=== PATIENT | female | born 1950 | race Caucasian/White ===

== ENCOUNTER 2023-04-13 18:07 | Emergency (ER) | payer MEDICARE, SELFPAY ==
[2023-04-13] VITALS (32 sets, daily range): BP systolic 141–191; BP diastolic 56–90; PULSE 52–67; RESP 11–24; TEMP 36.6–36.8; O2SAT 92–100
--- NOTE | ~2023-04-13 | XR_ITS ---
EXAM: XR shoulder LT min 2V DATE: 04/13/2023 18:40 HISTORY: PAIN FROM SHOULDER TO ELBOW X 1 HOUR/NO TRAUMA . COMPARISON: None available. FINDINGS: Normal mineralization. No fracture or dislocation. No lytic or blastic lesion. Mild degene rative change at the left AC joint and glenohumeral joint. No erosion or periosteal change. Soft tiss ues within normal limits. IMPRESSION: No acute osseous finding in the left shoulder. Reviewed, dictated and finalized at location [facility]
--- NOTE | ~2023-04-13 | XR_ITS ---
EXAM: XR elbow LT min 3V DATE: 04/13/2023 18:40 HISTORY: PAIN FROM SHOULDER TO ELBOW X 1 HOUR/NO TRAUMA . COMPARISON: None available. FINDINGS: Normal mineralization. No fracture or dislocation. No lytic or blastic lesion. Joint space s are maintained. No erosion or periosteal change. Soft tissues within normal limits. IMPRESSION: No acute osseous finding in the left elbow. Reviewed, dictated and finalized at location K. T
--- NOTE | ~2023-04-13 | XR_ITS ---
EXAM: XR cervical spine 4-5V DATE: 04/13/2023 18:40 HISTORY: PAIN FORM SHOULDER TO ELBOW X 1 HOUR/NO TRAUMA . COMPARISON: None available. FINDINGS: Craniocervical association and atlantoaxial joint are aligned, with mild degenerative talbert ge. No prevertebral soft tissue swelling. 4 mm anterolisthesis at C4-5. Vertebral body heights are ma intained. Multilevel moderate degenerative disc disease and facet arthropathy. IMPRESSION: No acute fracture or trauma malalignment detected in the cervical spine. Grade 2 anterolisthesis at C4-5, presumably on a degenerative basis. Reviewed, dictated and finalized at location K. O REPAIR PERSON
--- NOTE | 2023-04-13 18:08 | ECG_ITS ---
Measurements Intervals [place] Rate: 57 P: 57 GA: 158 QRS: 19 QRSD: 142 T: 22 QT: 433 QTc: 423 Interpretive Statements SINUS BRADYCARDIA RIGHT BUNDLE BRANCH BLOCK BASELINE ARTIFACT- I, II, III, AVR, AVL, AVF, V1-V6 ABNORMAL ECG NO PREVIOUS ECG AVAILABLE FOR COMPARISON Electronically Signed On 04-13-2023 19:46:40 RIB CHOPPER by New Mortensen D.O.
--- NOTE | 2023-04-13 18:12 | ED.GENADULT ---
HPI - General Adult General Chief complaint: Extremity Problem,Nontraumatic <Michi Mendez DO - Last Filed: 04/13/23 18:29> Stated complaint: left arm pain <Michi Mendez DO - Last Filed: 04/13/23 18:29> Time Seen by Provider: 04/13/23 18:10 <Michi Mendez DO - Last Filed: 04/13/23 18:29> History of Present Illness HPI narrative: Heavenly is a 72F with a PMH of obesity, and hypertension that presented to the ED with left arm pain that starts in the upper left chest and radiates into the left arm. She is concerned as this is how her brother presented when he had an SC. No CP, dyspnea, lightheadedness or vomiting reported. There was also no trauma reported. Of note she took her BP meds just before coming to the ED. <Michi Mendez DO - Last Filed: 04/13/23 18:29> Related Data Home medications: Home Medications Medication Instructions Recorded Confirmed alprazolam 0.25 mg tablet 0.25 mg PO TID PRN Anxiety 04/13/23 04/13/23 hydralazine 50 mg tablet 75 mg PO BID 04/13/23 04/13/23 levothyroxine 137 mcg tablet 1 mcg PO DAILY 04/13/23 04/13/23 metoprolol tartrate 50 mg tablet See Rx Instructions .Route .COMPLEX 04/13/23 04/13/23 venlafaxine 150 mg 150 mg PO DAILY 04/13/23 04/13/23 capsule,extended release 24 hr <Michi Mendez DO - Last Filed: 04/13/23 18:29> Allergies/adverse reactions: Allergies Allergy/AdvReac Type Severity Reaction Status Date / Time Penicillins Allergy Mild RASH Verified 04/13/23 20:16 <Michi Mendez DO - Last Filed: 04/13/23 18:29> Review of Systems Review of Systems: All systems reviewed & are unremarkable except as noted in HPI and below <Michi Mendez DO - Last Filed: 04/13/23 18:29> Exam Const: General: cooperative, healthy appearing, comfortable, no acute distress, well developed, alert, awake and Physically active <Michi Mendez DO - Last Filed: 04/13/23 18:29> Orientation/consciousness: oriented to person, oriented to place and oriented to time <Michi Mendez DO - Last Filed: 04/13/23 18:29> HENMT: Head: normal to inspection, normocephalic and atraumatic <Michi Mendez DO - Last Filed: 04/13/23 18:29> Ears: hearing grossly normal bilaterally and external ears normal <Michi Mendez DO - Last Filed: 04/13/23 18:29> Face/Nose/Sinus: Normal external nose present <Michi Mendez DO - Last Filed: 04/13/23 18:29> Eyes: General: appearance normal, both eyes and all related structures <Michi Mendez DO - Last Filed: 04/13/23 18:29> Periorbital: periorbital findings normal <Michi Mendez DO - Last Filed: 04/13/23 18:29> Sclera: sclerae normal <Michi Mendez DO - Last Filed: 04/13/23 18:29> Pupils: Equal, round and reactive pupils present <Michi Mendez DO - Last Filed: 04/13/23 18:29> Neck: Neck: normal visual inspection <Michi Mendez DO - Last Filed: 04/13/23 18:29> Chest: Chest palpation & inspection: normal inspection of the chest <Micih Mendez DO - Last Filed: 04/13/23 18:29> Resp: Effort & Inspection: normal respiratory effort, able to speak in complete sentences and no respiratory distress <Michi Mendez DO - Last Filed: 04/13/23 18:29> Auscultation: clear to auscultation bilaterally <Michi Mendez DO - Last Filed: 04/13/23 18:29> Cardio: Jugular venous distension: no JVD <Michi Mendez DO - Last Filed: 04/13/23 18:29> Rate: regular rate <Michi Mendez DO - Last Filed: 04/13/23 18:29> Rhythm: regular rhythm <Michi Mendez DO - Last Filed: 04/13/23 18:29> GI: Inspection: normal to inspection <Michi Mendez DO - Last Filed: 04/13/23 18:29> GI Palp: Yes Soft to palpation <Michi Mendez DO - Last Filed: 04/13/23 18:29> Auscultation: normal bowel sounds <Michi Mendez DO - Last Filed: 04/13/23 18:29> Skin: General skin exam: normal color and no rashes or lesions noted <Michi Mendez DO - Last Filed:
[2023-04-13] MEDS: ASPIRIN 81 MG CHEWABLE TABLET 324 MG PO (18:39)
[2023-04-13 18:45] LABS: Basophils Absolute Auto 0.05 K/mm3 (0.00-0.10); Basophils Percent Auto 1.2 % (0.0-1.0); Eosinophils Absolute Auto 0.22 K/mm3 (0.02-0.50); Eosinophils Percent Auto 5.1 % (1.0-6.0); Hematocrit 38.7 % (35.0-42.0); Hemoglobin 12.2 g/dL (11.7-13.8); Immature Granulocyte Absolute 0.02 K/mm3 (0.00-0.00); Immature Granulocyte Percent A 0.5 % (0.0-0.0); Lymphocytes Absolute Auto 0.44 K/mm3 (1.10-4.50); Lymphocytes Percent Auto 10.3 % (18.0-42.0); Mean Corpuscular HGB Conc 31.5 g/dL (32.0-36.0); Mean Corpuscular Hemoglobin 30.7 pg (27.0-31.0); Mean Corpuscular Volume 97.5 fL (78.0-102.0); Mean Platelet Volume 9.7 fl (9.2-11.8); Monocytes Absolute Auto 0.48 K/mm3 (0.10-0.90); Monocytes Percent Auto 11.2 % (2.0-11.0); Neutrophils Absolute Auto 3.1 K/mm3 (1.7-7.2); Neutrophils Percent Auto 71.7 % (50.0-70.0); Platelet Count Result 212 K/mm3 (150-420); Red Blood Count 3.97 M/mm3 (4.20-5.40); Red Cell Distribution Width 13.6 % (11.6-14.4); White Blood Count 4.3 K/mm3 (4.8-10.8)
[2023-04-13 18:58] LABS: INR 0.9; Prothrombin Time 10.3 Seconds (9.50-12.10)
--- NOTE | 2023-04-13 19:01 | PC.NURSE ---
patient report received from SMITH Miller.
[2023-04-13 19:08] LABS: Alanine Aminotransferase 18 U/L (14-59); Albumin Level 3.6 g/dL (3.4-5.0); Alkaline Phosphatase 64 U/L (46-116); Anion Gap 10 mmol/L (8-16); Aspartate Amino Transferase 18 U/L (15-37); Bilirubin,Total 0.3 mg/dL (0.00-1.00); Blood Urea Nitrogen 27 mg/dL (7-18); Calcium 9.3 mg/dL (8.5-10.1); Carbon Dioxide 30 mmol/L (21-32); Chloride 102 mmol/L (98-108); Estimated Glomerular Filt Rate > 60; Glucose 85 mg/dL (70-99); NT Pro B Type Natriuretic Pept 487 pg/mL (0-125); Osmolality Calculated 298 mOsm/kg (285-295); Potassium 4.4 mmol/L (3.5-5.1); Sodium 142 mmol/L (136-145); Total Protein 7.6 g/dL (6.4-8.2); Troponin I 6.6 ng/L (0.00-60.4)
--- NOTE | 2023-04-13 19:27 | PC.NURSE ---
patient update provided by Dr. Liriano at this time. plan for 3 hour troponin and 3 hour repeat EKG. Patient remains on government service executive.
--- NOTE | 2023-04-13 20:09 | PC.NURSE ---
patient ambulatory to bathroom, states pain as 09/22, ERP made aware of patient pain, RN awaiting orders. patient sister at bedside. Patient and visitor aware of plan for repeat troponin and ekg.
[2023-04-13] MEDS: ACETAMINOPHEN 500 MG TABLET 1000 MG PO (20:17)
--- NOTE | 2023-04-13 20:20 | PC.NURSE ---
patient medicated for pain, see MAR. sister at bedside. patient update provided. patient and visitor given warm blankets and lights dimmed for comfort. patient denies further needs.call light within reach.
--- NOTE | 2023-04-13 21:26 | PC.NURSE ---
beauty advisor at bedside for repeat troponin draw.
--- NOTE | 2023-04-13 21:37 | ECG_ITS ---
Measurements Intervals [place] Rate: 57 P: 54 UT: 174 QRS: 40 QRSD: 141 T: 34 QT: 433 QTc: 425 Interpretive Statements SINUS BRADYCARDIA RIGHT BUNDLE BRANCH BLOCK BASELINE ARTIFACT- I, II, AVR, AVL, V2-V4 ABNORMAL ECG COMPARED TO ECG 04/13/2023 18:14:11 NO SIGNIFICANT CHANGES Electronically Signed On 04-14-2023 6:33:28 BLADDER CLEANER by [place] Mortensen D.O.
--- NOTE | 2023-04-13 21:54 | PC.NURSE ---
patient checked and repeat EKG completed. patient reports pain improved post medicare biller. sister remains at bedside. update provided, awaiting results of repeat troponin. denies further needs. call light within reach.
[2023-04-13 21:55] LABS: Troponin I 7.1 ng/L (0.00-60.4)
== END 2023-04-13 22:20 | disposition home or self-care (01) ==
PROVIDERS: Family Medicine; Emergency Provider Student in an Organized Health Care Education/Training Program; PCP Internal Medicine
DX: M79.602 Pain in left arm (principal); M43.12 Spondylolisthesis, cervical region; Z79.899 Other long term (current) drug therapy
CPT/HCPCS: 36415; 72050; 73030; 73080; 80053; 83880; 84484; 85025; 85610; 93005; 99284; A9270

== ENCOUNTER 2024-06-29 13:40 | Emergency (ER) | payer MEDICARE, SELFPAY ==
--- NOTE | ~2024-06-29 | XR_ITS ---
EXAMINATION: XR chest 1V portable 06/29/2024 14:22 INDICATION: Chest pain PROCEDURE: AP portable chest COMPARISON: No prior studies for comparison. FINDINGS: The lungs are clear. The cardiomediastinal silhouette is within normal limits. There are no pleural effusions. There is no pneumothorax suspected. IMPRESSION: 1: NO ACUTE CARDIOPULMONARY DISEASE. Reviewed, dictated and finalized at location B.
[2024-06-29 13:42] VITALS: BP 208/66; PULSE 69; RESP 16; TEMP 36.2; O2SAT 98
--- NOTE | 2024-06-29 13:49 | ECG_ITS ---
Test Date: 2024-06-29 14:07:49 Measurements Intervals [place] Rate: 63 P: 50 DC: 172 QRS: 35 QRSD: 134 T: 36 QT: 408 QTc: 421 Interpretive Statements SINUS RHYTHM RIGHT BUNDLE BRANCH BLOCK BASELINE ARTIFACT- I, II, III, AVR, AVL, AVF, V1-V6 ABNORMAL ECG No previous ECG available for comparison Electronically Signed On 06-29-2024 14:09:23 CDT by New Mortensen D.O.
--- NOTE | 2024-06-29 13:49 | ED.CHESTPAIN ---
HPI - Chest Pain General Chief Complaint: Chest Pain <Liliya Ramirez PA-C - Last Filed: 06/29/24 13:50> Stated Complaint: Chest pain x days <Liliya Ramirez PA-C - Last Filed: 06/29/24 13:50> Time Seen by Provider: 06/29/24 15:10 <Liliya Ramirez PA-C - Last Filed: 06/29/24 13:50> Focused HPI: 73-year-old female with history of hypertension, thyroid disease, GERD presents to emergency department for midsternal chest pain that started 3 days ago. Patient states the pain is in center of her chest that occurs after swallowing. She thought she maybe had a hiatal hernia. She is reporting associated dyspnea. Denies abdominal pain, fevers, cough or congestion, numbness or tingling to extremities. GENERAL: Well-appearing, well-nourished, and in no acute distress. HEAD: Normocephalic, atraumatic. CHEST: Clear to auscultation. ?No respiratory distress. HEART: Regular rate and rhythm.? NEURO: ?Alert and oriented x3. Patient screened in triage and initial orders placed.? ?Additional care and disposition to be based upon?diagnostic testing and treatment. <Liliya Ramirez PA-C - Last Filed: 06/29/24 13:50> History of Present Illness HPI narrative: agree w/ MSE H/o hiatal hernia s/p dilation but 3 d ago started having dysphagia again after eating creamy/cheesy broccoli soup. Comes up to throat and feels like burning. Taking protonix already <Steph Falcon MD - Last Filed: 06/29/24 16:16> Related Data Home Medications: Home Medications ?Medication ?Instructions ?Recorded ?Confirmed ?Last Taken ?Type alprazolam 0.25 mg tablet 0.25 mg PO TID PRN Anxiety 04/13/23 04/13/23 Unknown History hydralazine 50 mg tablet 75 mg PO BID 04/13/23 04/13/23 Unknown History venlafaxine 150 mg 150 mg PO DAILY 04/13/23 04/13/23 Unknown History capsule,extended release 24 hr ascorbic acid (vitamin C) 500 mg 500 mg PO DAILY 06/23/23 Unknown History chewable tablet biotin 1 mg capsule 1 mg PO DAILY 06/23/23 Unknown History calcium carbonate 500 mg PO DAILY 06/23/23 Unknown History celecoxib 200 mg capsule 200 mg PO DAILY 06/23/23 Unknown History cholecalciferol (vitamin D3) 25 25 mcg PO DAILY 06/23/23 Unknown History mcg (1,000 unit) capsule hydralazine 50 mg tablet 50 mg PO BID 06/23/23 Unknown History levothyroxine 137 mcg capsule 137 mcg PO DAILY 06/23/23 Unknown History magnesium 200 mg tablet 200 mg PO DAILY 06/23/23 Unknown History metoprolol tartrate 50 mg tablet 50 mg PO BID 06/23/23 Unknown History omega-3 fatty acids 1,000 mg 1,000 mg PO DAILY 06/23/23 Unknown History capsule ondansetron 4 mg disintegrating 4 mg PO Q6H 06/23/23 Unknown History tablet pantoprazole 40 mg tablet,delayed 40 mg PO DAILY 06/23/23 Unknown History release sennosides 8.6 mg-docusate sodium 1 tab-cap PO BID 06/23/23 Unknown History 50 mg tablet (Senna with Docusate Sodium) <Liliya Ramirez PA-C - Last Filed: 06/29/24 13:50> Allergies/Adverse Reactions: Allergies Allergy/AdvReac Type Severity Reaction Status Date / Time Penicillins Allergy Mild RASH Verified 06/29/24 13:40 <CARLY Chawla Last Filed: 06/29/24 13:50> Course Vital Signs Vital signs: Vital Signs Temperature 97.2 F L 06/29/24 13:42 Pulse Rate 69 06/29/24 13:42 Respiratory Rate 16 06/29/24 13:42 Blood Pressure 208/66 H 06/29/24 13:42 Pulse Oximetry 98 06/29/24 13:42 Temperature 97.2 F L 06/29/24 13:42 Pulse Rate 60 06/29/24 15:21 Respiratory Rate 18 06/29/24 15:21 Blood Pressure 169/60 H 06/29/24 15:21 Pulse Oximetry 99 06/29/24 15:21 Oxygen Delivery Room Air 06/29/24 14:09 <Liliya Ramirez PA-C - Last Filed: 06/29/24 13:50> Vital Signs Temperature 97.2 F L 06/29/24 13:42 Pulse Rate 69 06/29/24 13:42 Respiratory Rate 16 06/29/24 13:42 Blood Pressure 208/66 H 06/29/24 13:42 Pulse Oximetry 98 06/29/24 13:42 Temperature 97.2 F L 06/29/24 13:42 Pulse Rate 60 06/29/24 15:21 Respiratory Rate 18 06/29/24 15:21 Blood Pressure 169/60 H 06/29/24 15:21 Pulse Oximetry 99 06/29/24 15:21 Oxygen Delivery Room Air 06/29/24 14:09 <Steph Falcon MD - Last Filed: 06/29/24 16:16> MDM - Chest Pain MDM Narrative Medical decision making narrative: 1) Differential diagnosis: ACS, GERD/gastritis/esophagitis 2) Comorbidities: Hiatal hernia, hypertension 3) External notes reviewed: Prior admissions/GI notes 4) History sources independently obtained from: daughter at bedside 5) Discussion of management with: 6) Independent interpretation of: EKG showing sinus rhythm rate 63, MN 172, QRS 134, QTC 421, normal axis, no significant ST elevation or or depressions or signs of acute ischemia or arrhythmia No obvious pneumothorax, consolidation 7) Diagnostic tests or therapies considered but not ordered: 8) Social determinants of health: 9) Shared decision makinF h/o hiatal hernia s/p dilation but 3 d ago started having dysphagia again after eating creamy/cheesy broccoli soup. Comes up to throat and feels like burning. Taking protonix already. Cardiac workup thankfully negative here, patient given Maalox and Pepcid here with immediate improvement in her symptoms, I have asked her to follow up with her GI doctor and she is agreeable to this plan with return precautions. Patient and daughter at bedside agreeable to plan. <Steph Falcon MD - Last Filed: 06/29/24 16:16> Lab Data Result diagrams: 06/29/24 14:06 06/29/24 14:06 <Liliya Ramirez PA-C - Last Filed: 06/29/24 13:50> Labs: Lab Results 06/29/24 Range/Units 14:06 WBC 3.4 L (4.5-10.0) K/mm3 RBC 3.12 L (4.2-5.4) M/mm3 Hgb 11.2 L (12.0-15.0) g/dL Hct 33.7 L (37.0-47.0) % MCV 108.0 H (80-100) fl MCH 35.9 H (26-34) pg MCHC 33.2 (32-36) g/dl RDW 14.0 (11.5-14.5) % Plt Count 151 (150-375) k/mm3 MPV 9.3 (7.4-10.4) fl Immature Gran % (Auto) 0.6 H (0-0.5) % Neut % (Auto) 75.5 H (45.5-73.1) % Lymph % (Auto) 10.1 L (18.3-44.2) % [place] % (Auto) 9.9 H (2.6-8.5) % Eos % (Auto) 1.8 (0-4.4) % Baso % (Auto) 2.1 H (0.2-1.2) % Lymph # (Auto) 0.34 L (0.9-3.2) K/mm3 [place] # (Auto) 0.3 (0.1-0.6) K/mm3 Eos # (Auto) 0.1 (0-0.3) K/mm3 Baso # (Auto) 0.1 (0.0-0.1) K/mm3 Abs Immat Gran (auto) 0.02 (0.00-0.031) K/mm3 Absolute Neuts (auto) 2.5 (1.3-6.7) K/mm3 Absolute Nucleated RBC 0.000 (0.0-0.012) K/mm3 Band Neutrophils % 0 (0-6) % Nucleated RBC % 0.0 (0.0-0.2) % Platelet Estimate Adequate (Adequate) Macrocytosis 1+ (NORMAL) Schistocytes None seen PT 12.9 (11.1-14.7) Seconds INR 0.9 APTT 23.7 (22.3-36.8) Seconds Sodium 143 (137-145) mmol/L Potassium 4.5 (3.4-5.0) mmol/L Chloride 105 (98-107) mmol/L Carbon Dioxide 29 (22-30) mmol/L Anion Gap 9 (4-12) mmol/L BUN 32 H (7-17) mg/dL Creatinine 0.95 (0.7-1.0) mg/dL Estim Creat Clear Calc 47 ml/min Estimated GFR 58 L (59 - ) Glucose 97 (65-110) mg/dL Calcium 10.0 (8.4-10.2) mg/dL Total Bilirubin 0.4 (0.2-1.3) mg/dL AST 30 (14-36) U/L ALT 14 (6-35) U/L Alkaline Phosphatase 50 (38-126) U/L Troponin I < 0.012 (0.000-0.034) ng/mL NT-Pro-B Natriuret Pep 972 H (19.9-100) pg/mL Total Protein 8.0 (6.3-8.2) g/dL Albumin 4.4 (3.5-5.1) g/dL Lipase 80 (23-300) U/L <Liliya Ramirez PA-C - Last Filed: 06/29/24 13:50> Lab Results 06/29/24 Range/Units 14:06 WBC 3.4 L (4.5-10.0) K/mm3 RBC 3.12 L (4.2-5.4) M/mm3 Hgb 11.2 L (12.0-15.0) g/dL Hct 33.7 L (37.0-47.0) % MCV 108.0 H (80-100) fl MCH 35.9 H (26-34) pg MCHC 33.2 (32-36) g/dl RDW 14.0 (11.5-14.5) % Plt Count 151 (150-375) k/mm3 MPV 9.3 (7.4-10.4) fl Immature Gran % (Auto) 0.6 H (0-0.5) % Neut % (Auto) 75.5 H (45.5-73.1) % Lymph % (Auto) 10.1 L (18.3-44.2) % [place] % (Auto) 9.9 H (2.6-8.5) % Eos % (Auto) 1.8 (0-4.4) % Baso % (Auto) 2.1 H (0.2-1.2) % Lymph # (Auto) 0.34 L (0.9-3.2) K/mm3 [place] # (Auto) 0.3 (0.1-0.6) K/mm3 Eos # (Auto) 0.1 (0-0.3) K/mm3 Baso # (Auto) 0.1 (0.0-0.1) K/mm3 Abs Immat Gran (auto) 0.02 (0.00-0.031) K/mm3 Absolute Neuts (auto) 2.5 (1.3-6.7) K/mm3 Absolute Nucleated RBC 0.000 (0.0-0.012) K/mm3 Band Neutrophils % 0 (0-6) % Nucleated RBC % 0.0 (0.0-0.2) % Platelet Estimate Adequate (Adequate) Macrocytosis 1+ (NORMAL) Schistocytes None seen PT 12.9 (11.1-14.7) Seconds INR 0.9 APTT 23.7 (22.3-36.8) Seconds Sodium 143 (137-145) mmol/L Potassium 4.5 (3.4-5.0) mmol/L Chloride 105 (98-107) mmol/L Carbon Dioxide 29 (22-30) mmol/L Anion Gap 9 (4-12) mmol/L BUN 32 H (7-17) mg/dL Creatinine 0.95 (0.7-1.0) mg/dL Estim Creat Clear Calc 47 ml/min Estimated GFR 58 L (59 - ) Glucose 97 (65-110) mg/dL Calcium 10.0 (8.4-10.2) mg/dL Total Bilirubin 0.4 (0.2-1.3) mg/dL AST 30 (14-36) U/L ALT 14 (6-35) U/L Alkaline Phosphatase 50 (38-126) U/L Troponin I < 0.012 (0.000-0.034) ng/mL NT-Pro-B Natriuret Pep 972 H (19.9-100) pg/mL Total Protein 8.0 (6.3-8.2) g/dL Albumin 4.4 (3.5-5.1) g/dL Lipase 80 (23-300) U/L <Steph Falcon MD - Last Filed: 06/29/24 16:16> Discharge Plan Discharge Clinical Impression: Atypical chest pain <CARLY Chawla Last Filed: 06/29/24 13:50> Patient Disposition: Home <CARLY Chawla Last Filed: 06/29/24 13:50> Condition: Stable <CARLY Chawla Last Filed: 06/29/24 13:50> Instructions: Epigastric Pain (ED) <CARLY Chawla Last Filed: 06/29/24 13:50> Additional Instructions: Please follow up with your GI doctor in 2-3 days and try the meds as prescribed; go back to the ER if your symptoms return or worsen especially if you have any chest pain or difficulty breathing. <CARLY Chawla Last Filed: 06/29/24 13:50> Patient Language: Armenian <CARLY Chawla Last Filed: 06/29/24 13:50> Prescriptions: New famotidine 20 mg tablet 20 mg PO DAILY Qty: 30 0RF alum-mag hydroxide-simeth [Maalox Advanced] 200-200-20 mg/5 mL suspension 10 ml PO QID PRN (Reason: dyspepsia) Qty: 200 0RF Rx Instructions: administer between meals and at bedtime No Action venlafaxine 150 mg capsule,extended release 24hr 150 mg PO DAILY alprazolam 0.25 mg tablet 0.25 mg PO TID PRN (Reason: Anxiety) hydralazine 50 mg tablet 75 mg PO BID ascorbic acid (vitamin C) 500 mg tablet,chewable 500 mg PO DAILY biotin 1 mg capsule 1 mg PO DAILY calcium carbonate 500 mg calcium (1,250 mg) tablet 500 mg PO DAILY celecoxib 200 mg capsule 200 mg PO DAILY hydralazine 50 mg tablet 50 mg PO BID Rx Instructions: Take 1 1/2 tablet PO BID levothyroxine 137 mcg capsule 137 mcg PO DAILY magnesium 200 mg tablet 200 mg PO DAILY metoprolol tartrate 50 mg tablet 50 mg PO BID Rx Instructions: Take 1 1/2 tablet PO AM and 1 tablet PO PM omega-3 fatty acids 1,000 mg capsule 1,000 mg PO DAILY ondansetron 4 mg tablet,disintegrating 4 mg PO Q6H pantoprazole 40 mg tablet,delayed release (DR/EC) 40 mg PO DAILY sennosides-docusate sodium [Senna with Docusate Sodium] 8.6-50 mg tablet 1 tab-cap PO BID cholecalciferol (vitamin D3) 25 mcg (1,000 unit) capsule 25 mcg PO DAILY <Liliya Ramirez PA-C - Last Filed: 06/29/24 13:50> Follow-up/Referrals: Enrique,Bernard Ng MD [Primary Care Provider] - <Liliya Ramirez PA-C - Last Filed: 06/29/24 13:50>
[2024-06-29 14:17] VITALS: BP 161/62; PULSE 60; RESP 20; O2SAT 94
[2024-06-29 14:18] LABS: Basophils Absolute Auto 0.1 K/mm3 (0.0-0.1); Basophils Percent Auto 2.1 % (0.2-1.2); Eosinophils Absolute Auto 0.1 K/mm3 (0-0.3); Eosinophils Percent Auto 1.8 % (0-4.4); Hematocrit 33.7 % (37.0-47.0); Hemoglobin 11.2 g/dL (12.0-15.0); Immature Granulocyte Absolute 0.02 K/mm3 (0.00-0.031); Immature Granulocyte Percent A 0.6 % (0-0.5); Lymphocytes Absolute Auto 0.34 K/mm3 (0.9-3.2); Lymphocytes Percent Auto 10.1 % (18.3-44.2); Mean Corpuscular HGB Conc 33.2 g/dl (32-36); Mean Corpuscular Hemoglobin 35.9 pg (26-34); Mean Platelet Volume 9.3 fl (7.4-10.4); Monocytes Absolute Auto 0.3 K/mm3 (0.1-0.6); Monocytes Percent Auto 9.9 % (2.6-8.5); Neutrophils Absolute Auto 2.5 K/mm3 (1.3-6.7); Neutrophils Percent Auto 75.5 % (45.5-73.1); Platelet Count Result 151 k/mm3 (150-375); Red Blood Count 3.12 M/mm3 (4.2-5.4); White Blood Count 3.4 K/mm3 (4.5-10.0)
[2024-06-29 14:29] LABS: Alanine Aminotransferase 14 U/L (6-35); Albumin Level 4.4 g/dL (3.5-5.1); Alkaline Phosphatase 50 U/L (38-126); Anion Gap 9 mmol/L (4-12); Aspartate Amino Transferase 30 U/L (14-36); Bilirubin,Total 0.4 mg/dL (0.2-1.3); Blood Urea Nitrogen 32 mg/dL (7-17); Carbon Dioxide 29 mmol/L (22-30); Chloride 105 mmol/L (98-107); Estimated CRCL calculation 47 ml/min; Estimated Glomerular Filt Rate 58; Glucose 97 mg/dL (65-110); Lipase 80 U/L (23-300); Potassium 4.5 mmol/L (3.4-5.0); Sodium 143 mmol/L (137-145)
[2024-06-29 14:32] LABS: INR 0.9; Prothrombin Time 12.9 Seconds (11.1-14.7)
[2024-06-29 14:33] LABS: Partial Thromboplastin Time 23.7 Seconds (22.3-36.8)
[2024-06-29 14:41] LABS: NT Pro B Type Natriuretic Pept 972 pg/mL (19.9-100); Troponin I < 0.012 ng/mL (0.000-0.034)
[2024-06-29 14:47] LABS: Band Neutrophils Percent 0 % (0-6); Macrocytosis 1+ (NORMAL); Platelet Estimate Adequate (Adequate); Schistocytes None Seen
--- OUTSIDE RECORDS SUMMARY | 2024-06-29 14:50 | XMS_ITS | Encounter Summary ---
Author Organization [facility] Address [address] [facility] [address] [place] [address] Phone Care Team Providers Care Staff [employer] Officer Name Role Phone Bernard Nunez MD Primary Care Provider [phone] Teresa Santana RN Unavailable Unavailable [facility] APRN, ROUGH RICE TENDER Unavailable Matt Paul MD Unavailable [phone] Reason for Visit * Reason Onset Date Comments Medication Refill 05/31/2020 Encounter Details Date Type Department Care Team (Late st Contact Info) Description 05/31/2020 Refill [facility] [address] [place] [address] Angela Cary, PAC [address] [place] [address] Medication Refill Social History Tobacco Use Types Packs/Day Years Used Date Smoking Tobacco: Former Cigarettes Q uit: 06/10/1989 Smokeless Tobacco: Never PHQ-2 Answer Date Recorded Total Score - Questions 1-9 0 03/17 Comments No Sex and Gender Information Value Date Recorded Sex Assigned at Not on file Legal Sex Female 12:02 AM CDT Gender Identity Not on file Sexual Orientation Not on file COVID-19 Exposure Response Date Recorded In the last month, have you been in contact with someone who was confirmed or suspected to have Coronavirus / COVID-19? No / Unsure 05/28/2020 12:49 PM CDT documented as of this encounter Miscellaneous Notes * Telephone Encounter - Dolly Nolan - 05/31/2020 1:24 PM CDT Images from the original note were not included. documented in this encounter Plan of Treatment Upcoming Encounters Date Type Department Care Team (Late st Contact Info) Description 07/12/2024 10:15 AM CDT Office Visit [facility] - [facility] [place] [address] [place] [id number] Bernard Nunez MD [address] [place] [address] documented as of this encounter Visit Diagnoses Not on filedocumented in this encounter Additional Health Concerns Infection Onset Date Last Indicated Resolved Time Respiratory Rule-Out 05/27/2023 05/27/2023 024 3:03 PM CDT COVID - 19 05/27/2023 05/27/2023 05/27/2023 3:03 PM CDT Assessment Noted Time PHQ-9 Depression Total Score: 0 04/12/19 21 9:00 AM JOB TRAINING SPECIALIST documented as of this encounter Care Teams Staff [employer] Officer Relationship Specialty Start Date End Date Bernard Nunez MD [address] [place] [address] PCP - General Internal Medicine 06/27/15 Teresa Santana, [place] Nurse Furnace Cleaner 04/15/23 04/15/24 Trini Shoemaker APRN, ROUGH RICE TENDER [address] [place] [address] Nurse Practitioner Advanced Practice Nurse 12/10/22 Matt Paul MD [address] [place] [address] Consulting Physician Gastroenterology 01/23/22 documented as of this encounter
--- OUTSIDE RECORDS SUMMARY | 2024-06-29 14:50 | XMS_ITS | Encounter Summary ---
Author Organization [facility] Address [address] [place] [address] Phone Care Team Providers Care Office Machines Teacher Name Role Phone Bernard Nunez MD Primary Care Provider [phone] Teresa Santana RN Unavailable [facility]available [facility] APRN, TURRET PUNCH PRESS OPERATOR Unavailable Matt Paul MD Unavailable [phone] Reason for Visit * Reason Comments Medication Refill Encounter Details Date Type Department Care Team (Late st Contact Info) Description 06/01/[address] [facility] Medical Group - Internal Medicine - [place] [address] [place] [address] Bernard Nunez MD [address] [address] Medication Refill Social History Tobacco Use Types Packs/Day Years Used Date Smoking Tobacco: Former Cigarettes 1 - 1984 Passive Smoke Exposure: Past Smokeless Tobacco: Never Alcohol Use Standard Drinks/Week Comments Never 0 (1 standard drink = 0.6 oz pur e alcohol) [facility] Utilities Answer Date Recorded In the past 12 months has [employer] electric, gas, oil, or water company threatened to shut off services in your home? No 04/15/2023 Social Connection and Isolat ion Panel [NHANES] Answer Date Recorded In a typical week, how many times do you talk on the phone with family, friends, or neighbors? More than three times a week 04/15/2023 How often do you get togethe r with friends or relatives? Twice a week 04/15/2023 How often do you attend chur ch or sabianism services? 1 to 4 times per year 04/15/2023 Do you belong to any clubs o r organizations such as mosque groups, unions, fraternal or athletic groups, or school groups? No 04/15/2023 How often do you attend meet ings of the clubs or organizations you belong to? Never 04/15/2023 Are you , , di vorced, , never , or living with a partner? Patient declined 04/15/2023 AUDIT-C Answer Date Recorded Q1: How often do you have a drink containing alcohol? Never 04/15/2023 Q2: How many drinks containi ng alcohol do you have on a typical day when you are drinking? Patient does not drink Q3: How often do you have si x or more drinks on one occasion? Never 04/15/2023 Overall Financial Resource Strain (CARDIA) Answe r Date Recorded How hard is it for you to pa y for the very basics like food, housing, medical care, and heating? Not hard at all 04/15/2023 PHQ-2 Answer Date Recorded Total Score - Questions 1-9 9 04/16 [facility] - Occupational Stress Questionnaire Answer Date Recorded Do you feel stress - tense, restless, nervous, or anxious, or unable to sleep at night because your mind is troubled all the time - these days? To some extent 04/15/2023 Exercise Vital Sign Answer Date Recorde d On average, how many days pe r week do you engage in moderate to strenuous exercise (like a brisk walk)? 1 day 04/15/2023 On average, how many minutes do you engage in exercise at this level? 20 min 04/15/2023 Hunger Vital Sign Answer Date Recorded Within the past 12 months, y ou worried that your food would run out before you got the money to buy more. Never true 04/15/19 24 Within the past 12 months, t he food you bought just didn't last and you didn't have money to get more. Never true 04/15/2023 PRAPARE - Transportation Answer Date Re corded In the past 12 months, has l ack of transportation kept you from medical appointments or from getting medications? No 03/18 In the past 12 months, has l ack of transportation kept you from meetings, work, or from getting things needed for daily living? No 04/15/2023 Housing Stability Vital Sign Answer Angel Luis e Recorded In the last 12 months, was t here a time when you were not able to pay the mortgage or rent on time? No 04/15/2023 In the last 12 months, how many places have you lived? 1 04/15/2023 In the last 12 months, was t here a time when you did not have a steady place to sleep or slept in a half-way (including now)? No 04/15/2023 Sexually Active Control Partners Comments Not Currently Male Comments No Sex and Gender Information Value Date Recorded Sex Assigned at Not on file Legal Sex Female 12:02 AM CDT Gender Identity Not on file Sexual Orientation Not on file documented as of this encounter Plan of Treatment Upcoming Encounters Date Type Department Care Team (Late st Contact Info) Description 07/12/2024 10:15 AM CDT Office Visit [facility] Medical Group - Internal Medicine [place] [address] [place] [address] Bernard Nunez MD [address] [place] [address] documented as of this encounter Goals Goal Patient Goal Type Associated Problems Recent Progress Patient-Stated? Author Behavioral Health Behavioral Health On track( 024 9:58 AM CDT) Yes Angel Trujillo, FINANCIAL MANAGEMENT ANALYST Note: I want to get through this grief. Goal/Objective: Increase coping skills. Anticipated Time Frame for Goal Completion: 6 months Goal Reviewed with: patient Readiness to change: Ready to change Department associated with goal: [facility] Steps to achieve goal: 1. will attend at least 6 counseling sessions either individual and/or group 1x/mo, engaging in each session by verbalizing and processing thoughts and feelings related to grief and loss. 2. will report reduced feelings of guilt and resentment. 3. will identify and implement at least two outlets for grief and or coping skills to aid in managing problematic responses to grief. documented as of this encounter Visit Diagnoses Not on filedocumented in this encounter Additional Health Concerns Assessment Noted Time PHQ-9 Depression Total Score: 9 04/29/19 24 10:00 AM TRAPPER ANIMAL documented as of this encounter Care Teams Office Machines Teacher Relationship Specialty Start Date End Date Bernard Nunez MD [address] [place] [address] PCP - General Internal Medicine 06/27/15 Teresa Santana RN [place] Nurse Sweater Designer 04/15/23 04/15/24 Trini Shoemaker APRN, TURRET PUNCH PRESS OPERATOR [address] [place] [address] Nurse Practitioner Advanced Practice Nurse 12/10/22 Matt Paul MD [address] [place] [address] Consulting Physician Gastroenterology 01/23/22 documented as of this encounter
--- OUTSIDE RECORDS SUMMARY | 2024-06-29 14:50 | XMS_ITS | Encounter Summary ---
Author Organization [facility] Address [address] [place] [address] Phone Care Team Providers Care Paint Grinder Stone Mill Name Role Phone Bernard Nunez MD Primary Care Provider [phone] Teresa Santana RN Unavailable Unavailable [facility] APRN, PARKING METER MECHANIC Unavailable Matt Paul MD Unavailable [phone] Reason for Visit * Reason Comments Medication Refill Encounter Details Date Type Department Care Team (Late st Contact Info) Description 07/16/2021 Refill [facility] - [place] [address] [place] [address] Bernard Nunez MD [address] [facility] [place] [address] Medication Refill Social History Tobacco Use Types Packs/Day Years Used Date Smoking Tobacco: Former Cigarettes 1 10 1 975 - 1984 Smokeless Tobacco: Never Alcohol Use Standard Drinks/Week Comments Never 0 (1 standard drink = 0.6 oz pur e alcohol) PHQ-2 Answer Date Recorded Total Score - Questions 1-9 0 04/16 Sexually Active Control Partners Comments Not Currently Comments No Sex and Gender Information Value Date Recorded Sex Assigned at Not on file Legal Sex Female 12:02 AM CDT Gender Identity Not on file Sexual Orientation Not on file COVID-19 Exposure Response Date Recorded In the last 10 days, have yo u been in contact with someone who was confirmed or suspected to have Coronavirus/COVID-19? No / Unsure 06/25/2021 10:33 AM CDT documented as of this encounter Miscellaneous Notes * Telephone Encounter - Alisha Castro RN - 07/16/2021 9:17 AM CDT Medication failed the protocol, provider to review and approve the medication order if appropriate. Requested Prescriptions Pending Prescriptions Disp Refills hydrALAZINE 50 MG Tablet [Pharmacy Med Name: hydrALAZINE HCl 50 MG Oral Tablet] 270 Tablet 0 Sig: TAKE 1 & 1/2 (ONE & ONE-HALF) TABLETS BY MOUTH TWICE DAILY Vasodilators Protocol Passed - 07/16/2021 8:59 AM Passed - Visit with relevant provider in past year or upcoming 90 days Recent Visits Date Type Provider Dept 04/26/21 Office Visit [facility] [place] 01/18/21 Office Visit Bernard Nunez MD [facility] [place] 10/11/20 Office Visit Bernard Nunez MD [facility] 09/28/20 Office Visit Angela Cary PAC [facility] [place] Showing recent visits within past 365 days and meeting all other requirements Future Appointments Date Type Provider Dept 07/29/21 Appointment Bernard Nunez MD [facility] Showing future appointments within next 90 days and meeting all other requirements metoprolol tartrate (LOPRESSOR) 50 MG Tablet [Pharmacy Med Name: Metoprolol Tartrate 50 MG Oral Tablet] 225 Tablet 0 Sig: TAKE 1 & 1/2 (ONE & ONE-HALF) TABLETS BY MOUTH IN THE MORNING AND 1 IN THE EVENING Beta-Blockers Protocol Passed - 07/16/2021 8:59 AM Passed - BP on record in the past year Clinician-entered: BP Readings from Last 3 Encounters: 06/25/21 150/63 05/23/21 172/68 04/26/21 138/72 Patient-entered: No data recorded Passed - Visit with relevant provider in past 12 months or upcoming 90 days Recent Visits Date Type Provider Dept 04/26/21 Office Visit Bernard Nunez MD [facility] [place] 01/18/21 Office Visit Bernard Nunez MD [facility] [place] 10/11/20 Office Visit Bernard Nunez MD [facility] [place] 09/28/20 Office Visit Angela Cary, KAY [facility] [place] Showing recent visits within past 365 days and meeting all other requirements Future Appointments Date Type Provider Dept 07/29/21 Appointment Bernard Nunez MD [facility] [place] Show[place] future appointments within next 90 days and meeting all other requirements venlafaxine (EFFEXOR-XR) 75 MG CAPSULE SR 24 HR [Pharmacy Med Name: Venlafaxine HCl ER 75 MG Oral Capsule Extended Release 24 Hour] 90 Capsule 0 Sig: Take 1 capsule by mouth once daily SNRI (6 Month Refill Only) Protocol Failed - 07/16/2021 8:59 AM Failed - Patient has established therapy with Serotonin-Norepinephrine Reuptake Inhibitors for at least 6 months Passed - Visit with relevant provider in past 6 months or upcoming 90 days Recent Visits Date Type Provider Dept 04/26/21 Office Visit Bernard Nunez MD [facility] [place] 01/18/21 Office [facility] [place] Showing recent visits within past 182 days and meeting all other requirements Future Appointments Date Type Provider Dept 07/29/21 Appointment [facility] [place] Show[place] future appointments within next 90 days and meeting all other requirements Passed - Has an encounter in the past 6 months with a depression or anxiety visit diagnosis Euthyrox 137 MCG Tablet [Pharmacy Med Name: Euthyrox 137 MCG Oral Tablet] 90 Tablet 0 Sig: Take 1 tablet by mouth once daily Thyroid Hormones Protocol Failed - 07/16/2021 8:59 AM Failed - Normal TSH in past 12 months TSH Date Value Ref Range Status 01/17/2021 8.080 (H) 0.270 - 4.200 mIU/L Final Passed - Visit with relevant provider in past 12 months or upcoming 90 days Recent Visits Date Type Provider Dept 04/26/21 Office Visit Bernard Nunez MD [facility] 01/18/21 Office Visit Bernard Nunez MD [facility] 10/11/20 Office Visit Bernard Nunez MD [facility] 09/28/20 Office Visit Angela Cary, KAY [facility] [place] Showing recent visits within past 365 days and meeting all other requirements Future Appointments Date Type Provider Dept 07/29/21 Appointment Bernard Nunez MD [facility] [place] Showing future appointments within next 90 days and meeting all other requirements documented in this encounter Plan of Treatment Upcoming Encounters Date Type Department Care Team (Late st Contact Info) Description 07/12/2024 10:15 AM CDT [facility] Visit [facility] - [facility] Medicine [place] [address] [place] [address] Bernard Nunez MD [address] [facility] [place] [address] documented as of this encounter Visit Diagnoses Not on filedocumented in this encounter Additional Health Concerns Infection Onset Date Last Indicated Resolved Time Respiratory Rule-Out 05/27/2023 05/27/2023 024 3:03 PM CDT COVID - 19 05/27/2023 05/27/2023 05/27/2023 3:03 PM CDT Assessment Noted Time PHQ-9 Depression Total Score: 0 04/12/19 21 9:00 AM FRONT WORKER documented as of this encounter Care Teams Paint Grinder Stone Mill Relationship Specialty Start Date End Date Bernard Nunez MD [address] [place] [address] PCP - General Internal Medicine 06/27/15 Teresa Santana RN [place] Nurse Beauty Therapist 04/15/23 04/15/24 Trini Shoemaker APRN, PARKING METER MECHANIC [address] [place] [address] Nurse Practitioner Advanced Practice Nurse 12/10/22 Matt Paul MD [address] [place] [address] Consulting Physician Gastroenterology 01/23/22 documented as of this encounter
--- OUTSIDE RECORDS SUMMARY | 2024-06-29 14:50 | XMS_ITS | Encounter Summary ---
Author Organization [facility] Address [address] [place] [address] Phone Care Team Providers Care Telephone Switchboard Operator Name Role Phone Bernard Nunez MD Primary Care Provider Trini Shoemaker APRN, CAKE DECORATOR Unavailable aMtt Paul MD Unavailable [phone] Encounter Details Date Type Department Care Team (Late st Contact Info) Description 06/29/2024 Telephone [facility] [address] [place] [address] Bernard Nunez MD [address] [place] [address] Social History Tobacco Use Types Packs/Day Years Used Date Smoking Tobacco: Former Cigarettes 1 12 14 965 - 1984 Passive Smoke Exposure: Past Smokeless Tobacco: Never Alcohol Use Standard Drinks/Week Comments Never 0 (1 standard drink = 0.6 oz pur e alcohol) [facility] Utilities Answer Date Recorded In the past 12 months has e electric, gas, oil, or water company threatened to shut off services in your home? No 01/11/2024 Social Connection and Isolat ion Panel [NHANES] Answer Date Recorded In a typical week, how many times do you talk on the phone with family, friends, or neighbors? More than three times a week 01/11/2024 How often do you get togethe r with friends or relatives? Once a week 01/11/2024 How often do you attend chur or mandaen services? More than 4 times per year 01/11/2024 Do you belong to any clubs o r organizations such as adventism groups, unions, fraternal or athletic groups, or school groups? Yes 01/11/2024 How often do you attend meet ings of the clubs or organizations you belong to? More than 4 times per year 01/11/2024 Are you , , di vorced, , never , or living with a partner? 01/11/2024 AUDIT-C Answer Date Recorded Q1: How often do you have a drink containing alcohol? Never 01/11/2024 Q2: How many drinks containi ng alcohol do you have on a typical day when you are drinking? Patient does not drink Q3: How often do you have si x or more drinks on one occasion? Never 01/11/2024 Overall Financial Resource Strain (CARDIA) Answe r Date Recorded How hard is it for you to pa y for the very basics like food, housing, medical care, and heating? Not very hard 01/11/2024 PHQ-2 Answer Date Recorded Total Score - Questions 1-9 0 03/17 [facility] - Occupational Stress Questionnaire Answer Date Recorded Do you feel stress - tense, restless, nervous, or anxious, or unable to sleep at night because your mind is troubled all the time - these days? Very much 01/11/2024 Exercise Vital Sign Answer Date Recorde d On average, how many days pe r week do you engage in moderate to strenuous exercise (like a brisk walk)? 3 days 01/11/2024 On average, how many minutes do you engage in exercise at this level? 40 min 01/11/2024 Hunger Vital Sign Answer Date Recorded Within the past 12 months, y ou worried that your food would run out before you got the money to buy more. Never true 01/11/20 24 Within the past 12 months, t he food you bought just didn't last and you didn't have money to get more. Never true 01/11/2024 PRAPARE - Transportation Answer Date Re corded In the past 12 months, has l ack of transportation kept you from medical appointments or from getting medications? No 12/15 In the past 12 months, has l ack of transportation kept you from meetings, work, or from getting things needed for daily living? No 01/11/2024 Housing Stability Vital Sign Answer Angel Luis e Recorded In the last 12 months, was t here a time when you were not able to pay the mortgage or rent on time? No 06/30/2023 In the last 12 months, how many places have you lived? 1 06/30/2023 In the last 12 months, was t here a time when you did not have a steady place to sleep or slept in a fpc (including now)? No 06/30/2023 Housing Stability Vital Sign Answer Angel Luis e Recorded In the last 12 months, was t here a time when you were not able to pay the mortgage or rent on time? No 01/11/2024 In the past 12 months, how m any times have you moved where you were living? 0 01/11/2024 At any time in the [facility], were you homeless or living in a fpc (including now)? No 01/11/2024 Sexually Active Control Partners Comments Not Currently Male Comments No Sex and Gender Information Value Date Recorded Sex Assigned at Not on file Legal Sex Female 12:02 AM CDT Gender Identity Not on file Sexual Orientation Not on file documented as of this encounter Miscellaneous Notes * Telephone Encounter - Brenda Masters - 06/29/2024 12:11 PM CDT Heavenly called today as she is having pain in the middle of her chest and it radiates out to her nipples on both sides. She was advised to go to the ER. Phone - [phone] documented in this encounter Plan of Treatment Upcoming Encounters Date Type Department Care Team (Late st Contact Info) Description 07/12/2024 10:15 AM CDT Office Visit [facility] - Internal Medicine - [place] [address] [place] [address] Bernard Nunez MD [address] [place] [address] documented as of this encounter Goals Goal Patient Goal Type Associated Problems Recent Progress Patient-Stated? Author Behavioral Health Behavioral Health On track( 024 9:58 AM CDT) Yes Angel Trujillo, SLEEP LAB TECHNOLOGIST Note: I want to get through this grief. Goal/Objective: Increase coping skills. Anticipated Time Frame for Goal Completion: 6 months Goal Reviewed with: patient Readiness to change: Ready to change Department associated with goal: [facility] Steps to achieve goal: [...] Time PHQ-9 Depression Total Score: 0 04/12/19 25 10:21 AM INSHORE UNDERSEA WARFARE OFFICER documented as of this encounter Care Teams Telephone Switchboard Operator Relationship Specialty Start Date End Date Bernard Nunez MD [address] [place] [address] PCP - General Internal Medicine 06/27/15 Trini Shoemaker APRN, CAKE DECORATOR [address] [place] [address] Nurse Practitioner Advanced Practice Nurse 12/10/22 Matt Paul MD [address] [place] [address] Consulting Physician Gastroenterology 01/23/22 documented as of this encounter
--- OUTSIDE RECORDS SUMMARY | 2024-06-29 14:50 | XMS_ITS | Encounter Summary ---
Author Organization [facility] Address [address] [place] [address] Care Team Providers Care Process Control Specialist Name Role Phone Emery Nunez MD Primary Care Provider [phone] Encounter Details Date Type Department Care Team (Late st Contact Info) Description 06/11/2023 Lab Requisition [facility] - DermPath Lab [address] [place] [address] Paty Rowe DO [address] [facility] [address] [place] [address] Social History Tobacco Use Types Packs/Day Years Used Date Smoking Tobacco: Never Assessed Comments Unknown Sex and Gender Information Value Date Recorded Sex Assigned at Not on file Legal Sex Female 5:48 PM LIFE SPECIALIST Gender Identity Not on file Sexual Orientation Not on file documented as of this encounter Plan of Treatment Not on file documented as of this encounter Procedures Procedure Name Priority Date/Time Associated Diagnosis Comments DERMATOPATHOLOGY Routine 06/11/2023 2:05 PM CDT documented in this encounter Results * DERMATOPATHOLOGY (06/11/2023 2:05 PM CDT) Case Report Dermatopathology Report Case: [id number] Authorizing Provider: Paty Rowe DO Collected: 06/11/2023 02:05 PM Ordering Location: [facility] Physician [facility] - Received: 06/12/2023 01:46 PM DermPath Lab Pathologist: Amy Dangelo MD Specimen: Skin, right forehead 12:21 PM CDT DERMATOPATHOLOGY LABORATORY Final Diagnosis Specimen A. SKIN, right forehead: SQUAMOUS CELL CARCINOMA, WELL DIFFERENTIATED (C44.329) 12:21 PM CDT DERMATOPATHOLOGY LABORATORY Clinical History R/O NMSC. 12:21 PM CDT DERMATOPATHOLOGY LABORATORY Gross Description Specimen A: Received is one formalin filled container labeled with the patient's name and designated right forehead. The specimen consists of a shave biopsy measuring 5x5x1 mm. Jar 0. 12:21 PM CDT DERMATOPATHOLOGY LABORATORY Microscopic Description Specimen A. SKIN, right forehead: Arising in the epidermis and extending into the dermis there are irregularly shaped aggregates of keratinocytes showing evidence of premature cornification. 12:21 PM CDT DERMATOPATHOLOGY LABORATORY Disclaimer An external and internal positive and negative controls are appropriate for the histochemical, immunohistochemical and immunofluorescence stain(s) in this case (if any), except where stated explicitly. The performance characteristics of the stain(s) cited in this report were developed and its performance characteristic determined by the Dermatopathology Laboratory at [facility], directed by Dr. Ronnie Waterman. These tests need not be, and therefore are not, approved by the [place] Food and Drug Administration. The tests are used for clinical purposes. Billing Codes Specimen Charges Stain Charges 12272 1 12:21 PM CDT DERMATOPATHOLOGY LABORATORY Embedded Images 12:21 PM CDT DERMATOPATHOLOGY LABORATORY Pathology/Cytolo gy TISSUE SPECIMEN FROM SKIN / Unknown 06/11/2023 2:05 PM CDT 06/12/2023 1:46 PM CDT us Paty Rowe DO LAB - PATHOLOGY/CYTOLOGY ORDERABLES Final Result DERMATOPATHOLOGY LABORATORY [facility] - Department of Dermatology [address], [address] [phone] documented in this encounter Visit Diagnoses Not on filedocumented in this encounter Care Teams Process Control Specialist Relationship Specialty Start Date End Date Emery Nunez MD [address] [id number] PCP - General 02/01/19 documented as of this encounter
--- OUTSIDE RECORDS SUMMARY | 2024-06-29 14:50 | XMS_ITS | Encounter Summary ---
Author Organization [facility] Address [address] [place] [address] Phone Care Team Providers Care Sugar Refinery Supervisor Name Role Phone Bernard Nunez MD Primary Care Provider [phone] Zaire Alba MD Unavailable [phone] Fran Angel MD Unavailable [phone] Encounter Details Date Type Department Care Team (Late st Contact Info) Description 06/06/2024 Telephone [facility] Cardiology [address] [facility] [address] [facility] 8th [place] [address] [place] [address] Jose Escoto MD [address] [facility] [address] [place], [place] [id number] Social History Tobacco Use Types Packs/Day Years Used Date Smoking Tobacco: Former Cigarettes 1 20 1 972 - 1991 Smokeless Tobacco: Never AUDIT-C Answer Date Recorded Q1: How often do you have a drink containing alcohol? Never 07/09/2022 Q2: How many drinks containi ng alcohol do you have on a typical day when you are drinking? Patient does not drink Frequency of Binge Drinking Not on file 06/15 PHQ-2 Answer Date Recorded PHQ-2 Total Score (If total score is 3 or more points, staff should administer the PHQ-9) 0 07/09/2022 Personal Safety Answer Date Recorded Have you ever been in or are you currently in a harmful physical or emotional relationship or is someone making you feel afraid or unsafe? 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 Tried to call pt at [phone] but it was a wrong number. Took number out of system. * Telephone Encounter - Rosa Wei - 06/06/2024 12:19 PM CDT ----- Message from Nurse Chio Story sent at 06/06/2024 11:34 AM CDT ----- Please cancel patients appointment for today and call her to reschedule. She was not aware she had an appointment today. Thank you! documented in this encounter Plan of Treatment Not on file documented as of this encounter Visit Diagnoses Not on filedocumented in this encounter Care Teams Sugar Refinery Supervisor Relationship Specialty Start Date End Date Bernard Nunez MD [address] [place] [address] PCP - General 01/06/17 Zaire Alba MD [address] [place] [address] [place] [address] Surgeon Orthopedic Surgery 03/20/22 Fran Angel MD [address] [place] [address] Referring Physician Ophthalmology 04/07/22 documented as of this encounter
--- OUTSIDE RECORDS SUMMARY | 2024-06-29 14:50 | XMS_ITS ---
Author Organization [facility] Address [address] [place] [address] Care Team Providers Care Managing Consultant Name Role Phone Bernard Nunez MD Primary Care Provider [phone] Zaire Alba MD Unavailable [phone] Fran Angel MD Unavailable Active Problems Problem Noted Date Diagnosed Date Malignant neoplasm metastatic to bone 12/29/2023 Malignant neoplasm of overla pping sites of left breast in female, estrogen receptor positive 10/15/2023 Aftercare following left knee joint replacement surgery 07/17/2022 Primary osteoarthritis of right knee 03/04/2022 Overview (03/04/2022): Added automatically from request for surgery [id number] Basal cell carcinoma (BCC) of left lower eyelid 01/06/2022 Lesion of left lower eyelid 11/07/2021 Overview (11/07/2021): Added automatically from request for surgery [id number] Current Treatment and Therapy Plans [id number] - [facility] - Breast - TBCRBC-060 - Aromatase Inhibitor OR Tamoxifen / Abemaciclib* Plan Start Date:11/30/2023 Plan Provider:Lucille Singh MD Linked Problems Malignant neoplasm of overla pping sites of left breast in female, estrogen receptor positive (HCC) Treatment Medications Current Day (Day 1 , Cycle 8 - Planned for 06/21/2024) Next Day (Day 1, Cycle 9 - Planned for 07/19/2024) INV-WU_BJ Abemaciclib (/TBCRC-060)letroz ole (FEMARA) INV-WU_BJ Abemaciclib (/TBCRC-060) tablet 100 mgletrozole (FEMARA) 2.5 mg tablet INV-WU_BJ Abemaciclib (/TBCRC-060) tablet 100 mgletrozole (FEMARA) 2.5 mg tablet Zoledronic Acid Every 12 Weeks* Plan Start Date:01/26/2024 Plan Provider:Lucille Singh MD Linked Problems Malignant neoplasm metastati c to bone (HCC)Malignant neoplasm of overlapping sites of left breast in female, estrogen receptor positive (HCC) Treatment Medications Current Day (Day 1 , Cycle 3 - Planned for 07/19/2024) Next Day (Day 1, Cycle 4 - Planned for 10/11/2024) No medications scheduled. No medications schedul ed. No medications scheduled. Past Treatment and Therapy Plans No past plan information found. Lifetime Dose Tracking * Chemical Lifetime Dose Automatic Entry Manual Entr y DLP 1,397 mGycm 1,397 mGycm 0 mGycm Resolved Problems Problem Noted Date Diagnosed Date Resolved Date Primary osteoarthritis of left knee 06/23/2022 07/17/2022 Overview (06/23/2022): Added automatically from request for surgery [id number]
--- OUTSIDE RECORDS SUMMARY | 2024-06-29 14:50 | XMS_ITS | Encounter Summary ---
Author Organization [facility] Address [address] [facility] [place] [address] Care Team Providers Care Branch Retail Executive Name Role Phone Emery Nunez MD Primary Care Provider [phone] Encounter Details Date Type Department Care Team (Late st Contact Info) Description 11/27/2022 Lab Requisition [facility] - DermPath Lab [address] [facility] [place] [id number] Paty Rowe DO [address] [facility] [address] [place] [address] Social History Tobacco Use Types Packs/Day Years Used Date Smoking Tobacco: Never Assessed Comments Unknown Sex and Gender Information Value Date Recorded Sex Assigned at Not on file Legal Sex Female 5:48 PM CHIPPER Gender Identity Not on file Sexual Orientation Not on file documented as of this encounter Plan of Treatment Not on file documented as of this encounter Procedures Procedure Name Priority Date/Time Associated Diagnosis Comments DERMATOPATHOLOGY Routine 11/27/2022 3:21 PM CDT documented in this encounter Results * DERMATOPATHOLOGY (11/27/2022 3:21 PM CDT) Case Report Dermatopathology Report Case: [id number] Authorizing Provider: Paty Rowe DO Collected: 11/27/2022 03:21 PM Ordering Location: [facility] DermPath Lab Received: 11/28/2022 12:28 PM Pathologist: Kya Barksdale MD Specimen: Skin, right chest 09/18/202 3 1:08 PM CDT DERMATOPATHOLOGY LABORATORY Final Diagnosis Specimen A. SKIN, right chest: BASAL CELL CARCINOMA, NODULAR TYPE (C44.519) CALCINOSIS CUTIS (L94.2) 3 1:08 PM CDT DERMATOPATHOLOGY LABORATORY Clinical History R/O BCC 3 1:08 PM CDT DERMATOPATHOLOGY LABORATORY Gross Description Specimen A: Received is one formalin filled container labeled with the patient's name and designated right chest. The specimen consists of a shave biopsy measuring 12x7x1 mm. Jar 0. 3 1:08 PM CDT DERMATOPATHOLOGY LABORATORY Microscopic Description Specimen A. SKIN, right chest: Within the dermis there are aggregates of basaloid cells with a high nuclear to cytoplasmic ratio and peripheral palisading. Within the dermis, there are aggregates of homogenous amorphous basophilic material consistent with calcium. 3 1:08 PM CDT DERMATOPATHOLOGY LABORATORY Disclaimer An external and internal positive and negative controls are appropriate for the histochemical, immunohistochemical and immunofluorescence stain(s) in this case (if any), except where stated explicitly. The performance characteristics of the stain(s) cited in this report were developed and its performance characteristic determined by the Dermatopathology Laboratory at [facility], directed by Dr. Ronnie Waterman. These tests need not be, and therefore are not, approved by the [place] Food and Drug Administration. The tests are used for clinical purposes. Billing Codes Specimen Charges Stain Charges 19199 1 3 1:08 PM CDT DERMATOPATHOLOGY LABORATORY Embedded Images 3 1:08 PM CDT DERMATOPATHOLOGY LABORATORY Pathology/Cytolo gy TISSUE SPECIMEN FROM SKIN / Unknown 11/27/2022 3:21 PM CDT 11/28/2022 12:28 PM CDT us Paty Rowe DO LAB - PATHOLOGY/CYTOLOGY ORDERABLES Final Result DERMATOPATHOLOGY LABORATORY [facility] - Department of Dermatology [address], [address] [phone] documented in this encounter Visit Diagnoses Not on filedocumented in this encounter Care Teams Branch Retail Executive Relationship Specialty Start Date End Date Emery Nunez MD [address] [place] [id number] PCP - General 02/01/19 documented as of this encounter
--- OUTSIDE RECORDS SUMMARY | 2024-06-29 14:50 | XMS_ITS | Clinical Summary ---
Author Organization [facility] Address [address] [place] [address] Care Team Providers Care Statistical Methods Professor Name Role Phone Bernard Nunez MD Primary Care Provider [phone] Zaire Alba MD Unavailable [phone] Fran Angel MD Unavailable [phone] Allergies Active Allergy Reactions Criticality Noted Date Comments Nickel Itching,Redness Low 10/08/2023 Penicillins Hives Medium Medications pantoprazole DR (PROTONIX) 40 mg EC tablet Take 1 tablet (40 mg total) by mouth nightly 2 Active metoprolol tartrate (LOPRESSOR) 50 mg immediate release tablet Take 1 tablet (50 mg total) by mouth 2 (two) times a day Patient takes 1.5 tabs in the morning and 1 tablet at bedtime 2 Active glucosamine/cho ndr marinelli A sod (OSTEO BI-FLEX ORAL) Take 1 tablet by mouth every morning Active venlafaxine XR (EFFEXOR-XR) 150 mg 24 hr capsule Take 1 capsule (150 mg total) by mouth every morning 2 Active biotin 1 mg capsule Take 1 capsule by mouth every morning Active cholecalciferol (VITAMIN D-3) 25 mcg (1,000 unit) tablet Take 1 tablet (1,000 Units total) by mouth daily Active ascorbic acid (VITAMIN C) 500 mg tablet,chewable Take 1 tablet/chew tab (500 mg total) by mouth daily 30 tablet/chew tab 3 Active levothyroxine (SYNTHROID) 137 mcg tablet Take 1 tablet (137 mcg total) by mouth daily 2 Active senna-docusate (PERICOLACE) 8.6-50 mgIndications:c onstipation Take 2 tablets by mouth 2 (two) times a day 60 tablet 2 3 Active Additional Information Patient taking differently:2 tablet oralAs needed, Indications: constipation, Reported on 06/21/2024 potassium &magnesium aspartate (MAGNESIUM, POTASSIUM ASPARTATE ORAL) Take by mouth Active atorvastatin (LIPITOR) 10 mg tablet Take 1 tablet (10 mg total) by mouth nightly 4 Active ALPRAZolam (XANAX) 0.25 mg tablet Take 1 tablet (0.25 mg total) by mouth 3 (three) times a day as needed 1 Active furosemide (LASIX) 40 mg tablet Take 1 tablet (40 mg total) by mouth as needed (for swelling and/or Shortness of breath) 4 Active losartan (COZAAR) 50 mg tablet Take 1 tablet (50 mg total) by mouth daily 30 tablet 11 4 Active loperamide (IMODIUM) 2 mg capsuleIndicati ons:Malignant neoplasm of overlapping sites of left breast in female, estrogen receptor positive (HCC) Take 2 caps (4 mg) by mouth with first onset of diarrhea, 1 cap (2 mg) after each loose stool thereafter. Max 8 caps (16 mg) per 24 hours 60 capsule 3 4 Active Additional Information Patient taking differently: As needed, Take 2 caps (4 mg) by mouth with first onset of diarrhea, 1 cap (2 mg) after each loose stool thereafter. Max 8 caps (16 mg) per 24 hours, Reported on 06/21/2024 zolpidem (AMBIEN) 5 mg tabletIndicatio ns:Sleep-Onset Insomnia Take 1 tablet (5 mg total) by mouth nightly as needed for sleep Active letrozole (FEMARA) 2.5 mg tabletIndicatio ns:Malignant neoplasm of overlapping sites of left breast in female, estrogen receptor positive (HCC) Take 1 tablet (2.5 mg total) by mouth daily 90 tablet 3 4 Active ondansetron (ZOFRAN) 8 mg tablet Take 1 tablet (8 mg total) by mouth every 8 (eight) hours as needed for nausea or vomiting 90 tablet 2 5 Active letrozole (FEMARA) 2.5 mg tabletIndicatio ns:Malignant neoplasm of overlapping sites of left breast in female, estrogen receptor positive (HCC) Take 1 tablet (2.5 mg total) by mouth daily 5 Active clindamycin (CLEOCIN) 150 mg capsule TAKE FOUR CAPSULES BY MOUTH ONE HOUR BEFORE APPOINTMENT 5 Active levothyroxine (SYNTHROID) 125 mcg tablet Take 1 tablet (125 mcg total) by mouth daily 5 Active [facility] Abemaciclib (/TB CRC-060) 50 mg tablet Take 2 tablets (100 mg total) by mouth 2 (two) times a day Take at about the same times each day with or without food. Missed or vomited doses may not be made up. Avoid grapefruit juice/products, pomelos, [place] oranges, Mirta's Wort. Active calcium carbonate-vitam in D3 1,250mg (500mg elemental) - 5 mcg (200 units) per tablet Take 1 tablet by mouth 2 (two) times a day with meals 025 Discontin ued(Dupli michel order) clindamycin (CLEOCIN) 300 mg capsule Take 2 tablets by mouth 1 hour prior to dental procedure and take 1 tablet by mouth 6 hours after procedure. 3 capsule 1 3 025 Discontin ued(Alter carter therapy) [facility] Abemaciclib (/TB CRC-060) 50 mg tablet Take 3 tablets (150 mg total) by mouth 2 (two) times a day Take at about the same times each day with or without food. Missed or vomited doses may not be made up. Avoid grapefruit juice/products, pomelos, [place] oranges, Vashon's Wort. 025 Discontin ued(Alter carter therapy) letrozole (FEMARA) 2.5 mg tabletIndicatio ns:Malignant neoplasm of overlapping sites of left breast in female, estrogen receptor positive (HCC) Take 1 tablet (2.5 mg total) by mouth daily 5 025 Discontin ued(Dupli michel order) letrozole (FEMARA) 2.5 mg tabletIndicatio ns:Malignant neoplasm of overlapping sites of left breast in female, estrogen receptor positive (HCC) Take 1 tablet (2.5 mg total) by mouth daily 5 025 Discontin ued(Dupli michel order) Hospital, Clinic, or Other Facility Administered Medication Ordered Dose Route Frequency Start Date End Date Status perflutren protein-a (OPTISON) 3 mL in sodium chloride 0.9% 8 mL syringe 1 - 8 mL IV Once in imaging 10/06/2023 Active Active Problems Problem Noted Date Diagnosed Date Malignant neoplasm metastatic to bone 12/29/2023 Malignant neoplasm of overla pping sites of left breast in female, estrogen receptor positive 10/15/2023 Aftercare following left knee joint replacement surgery 07/17/2022 Primary osteoarthritis of right knee 03/04/2022 Overview (03/04/2022): Added automatically from request for surgery [id number] Basal cell carcinoma (BCC) of left lower eyelid 01/06/2022 Lesion of left lower eyelid 11/07/2021 Overview (11/07/2021): Added automatically from request for surgery [id number] Resolved Problems Problem Noted Date Diagnosed Date Resolved Date Primary osteoarthritis of left knee 06/23/2022 07/17/2022 Overview (06/23/2022): Added automatically from request for surgery [id number] Encounters Date Type Department Care Team Description 06/21/2024 3:30 PM CDT Office Visit [facility] Oncology [address] [facility] [address] [place] [address] Lucille Singh MD Malignant neoplasm of overlapping sites of left breast in female, estrogen receptor positive (HCC) (Primary Dx) 06/21/2024 2:30 PM CDT Lab [facility] - Lab Collection [address] [facility] [address] [place] [address] Malignant neoplasm of overlapping sites of left breast in female, estrogen receptor positive (HCC) 06/06/2024 4:15 PM CDT Office Visit [facility] Cardiology [address] [facility] Medicine 8th [place] [address] [place] [address] Jose Escoto MD Essential hypertension (Primary Dx); Palpitations 06/06/2024 Telephone [facility] Cardiology [address] [facility] 8th [place] [address] [place] [address] Jose Escoto MD 05/24/2024 3:15 PM CDT Research Med Pick-Up/CTRU 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 [facility] - Infusion [address] [place] [address] Malignant neoplasm of overlapping sites of left breast in female, estrogen receptor positive (HCC) (Primary Dx) 05/24/2024 2:00 PM CDT Office Visit [facility] Oncology [facility] [facility] Floor 8 [place] [address] Lucille Singh MD Malignant neoplasm of overlapping sites of left breast in female, estrogen receptor positive (HCC) (Primary Dx) 05/24/2024 1:00 PM CDT Clinical Support [facility] - Lab Collection [address] [facility] [place] [address] [place] [address] Malignant neoplasm of overlapping sites of left breast in female, estrogen receptor positive (HCC) 05/24/2024 10:33 AM CDT - 05/24/2024 11:59 PM CDT Hospital Encounter [facility] - PET [address] [place] [address] Discharge Disposition: Discharge to home or self care 05/24/2024 10:30 AM CDT - 05/24/2024 11:59 PM CDT Hospital Encounter [facility] - PET [address] [place] [address] Malignant neoplasm of overlapping sites of left breast in female, estrogen receptor positive (HCC) Discharge Disposition: Discharge to home or self care 05/24/2024 Orders Only [facility] Oncology [address] [facility] [address] [place] [address] Shani Parekh RN 05/24/2024 Orders Only [facility] Oncology [address] [place] [phone] Shani Parekh RN Malignant neoplasm of overlapping sites of left breast in female, estrogen receptor positive (HCC) (Primary Dx) 04/26/2024 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 Infusion [facility] Infusion [address] [place] [address] [address] 5 [place] [address] Malignant neoplasm metastatic to bone (HCC) (Primary Dx); Malignant neoplasm of overlapping sites of left breast in female, estrogen receptor positive (HCC) 04/26/2024 2:00 PM 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 Office Visit [facility] Oncology [address] [place] [phone] Lucille Singh MD Malignant neoplasm of overlapping sites of left breast in female, estrogen receptor positive (HCC) (Primary Dx); Malignant neoplasm metastatic to bone (HCC) 04/26/2024 1:00 PM 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 Clinical Support [facility] - Lab Collection [address] [place] [address] [address] [place] [address] Malignant neoplasm of overlapping sites of left breast in female, estrogen receptor positive (HCC) 04/26/2024 Orders Only [facility] Oncology [address] [place] [phone] Shani Parekh RN from Last 3 Months Surgical History Surgery Date Site/Laterality Comments BREAST CYST EXCISION 03/16/2001 - 03/15/2002 Right MENISCUS SURGERY 03/16/2018 - 03/15/2019 Right THYROIDECTOMY 03/16/2006 - 03/15/2007 total CATARACT EXTRACTION 03/16/2021 - 03/15/2022 Bilateral ESOPHAGOGASTRODUODENOSCOPY 06/25/2021 ABLATION OF AFIB FLUTTER REPLACEMENT TOTAL KNEE 03/19/2022 Right SKIN CANCER EXCISION Left left eyelid basal skin cancer removed REPLACEMENT TOTAL KNEE Bilateral BREAST BIOPSY 10/08/2023 Left BIOPSY DEEP BONE 11/13/2023 N/A REFRACTIVE SURGERY Medical History Medical History Date Comments Thyroid cancer (HCC) Breast cyst Cataract Sleep apnea Hypertension Arrhythmia Hx of Atrial Fib rillation Stomach ulcer Hx of stomach ul cers Depression Basal cell carcinoma (BCC) of antihelix of left ear left lower eyelid Ventricular tachycardia (HCC) Family History Medical History Relation Name Comments Cancer Brother Skin cancer Brother Thyroid cancer Brother Thyroid disease Brother Pancreatic cancer Father Ovarian cancer Father's Sister Thyroid disease Father's Sister Diabetes Maternal Grandfather Macular degeneration Mother Ovarian cancer Mother Uterine cancer Mother Breast cancer Paternal Grandmother myloid leukemia Son Glaucoma Neg Hx Strabismus Neg Hx Relation Name Status Comments Brother Father Father's Sister Maternal Grandfather Mother Paternal Grandmother Son Social History Tobacco Use Types Packs/Day Years Used Date Smoking Tobacco: Former Cigarettes 1 20 1 - 1991 Smokeless Tobacco: Never Tobacco Cessation:Counseling Given: Not Answered AUDIT-C Answer Date Recorded Q1: How often [...] on file Legal 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 Gender Identity Not on file Sexual Orientation Not on file Obstetrics History Para Term AB IAB SAB Ectopic Multiple Livin g Live Births 2 2 2 Date Outcome GA Total Labor Labor/2nd/3rd Weight Sex Type Anes PTL Polina A1 A5 Name Clin Term Term Last Filed Vital Signs Vital Sign Reading Time Taken Comments Blood Pressure 145/71 06/21/2024 3:04 PM CDT Pulse 72 06/21/2024 3:04 PM CDT Temperature 36.6 C (97.9 F) 06/21/2024 3:04 PM CDT Respiratory Rate 16 06/21/2024 3:04 PM CDT Oxygen Saturation 98% 06/21/2024 3:04 PM CDT Inhaled Oxygen Concentration - - Weight 95.7 kg (211 lb) 06/21/2024 3:04 PM CDT Height 150.4 cm (4' 11.21 ) 06/21/2024 3:04 PM C DT Body Mass Index 42.31 06/21/2024 3:04 PM CDT Plan of Treatment Health Maintenance Due Date Last Done Comments Colon Cancer Screening-Colonoscopy 1950 Hepatitis C Screening 1950 Hepatitis B Screening 07/11/1967 Zoster Vaccine (1 of 2) 1968 Well Visit 65+ 2014 DTaP/Tdap/Td Vaccine (2 - Tdap) 09/14/2021 2 Depression Screening 06/24/2023 06/23/2022 Covid-19 Vaccine (5 - 2023-2 5 season) 2024 11/24/2023, 02/16/2021, 06/22/2020, Additional history exists Osteoporosis Screening-Bone Density Scan 02/25/2024 02/24/2022, 02/24/2022 Breast Cancer Screening-Mammogram 09/20/2024 09/21/2023, 06/24/2022, 05/22/2021, Additional history exists Fall Risk Assessment 11/12/2024 11/13/2023 Pneumococcal vaccine 65+ Completed 022, 01/04/2020, 07/05/2015 Influenza Vaccine Completed 11/24/2023, , 12/25/2021, Additional history exists Medical Devices Implanted Type Area Machine Erector Device Identifier Shelf Expiration Date Model / Serial / Lot [employer]rea Craniomaxillofa cial Impl Soft Tissue [id number] Moist Tough Flex Sheet Enduragen 18591 - S0 - [id number] Implanted:Qty: 1 on 01/06/2022 by Bhanu Buchanan MD at [facility] Other - see comments Left: Eyelid [employer]ill[employer] 04/15/2026 [id number] / 0 / [employer] Cement Bone Simplex Gentamicin High Viscosity 40gm 6195-1-001 - [id number] Implanted:Qty: 1 on 03/19/2022 by Zaire Alba MD at [facility] Right: Knee [employer] 06/14/2023 6195-1-001 / / [id number] [employer] Cement Bone Simplex Gentamicin High Viscosity 40gm 6195-1-001 - [id number] Implanted:Qty: 1 on 03/19/2022 by Zaire Alba MD at [facility] Right: Knee [employer] 06/14/2023 6195-1-001 / / [id number] [employer] Attune 32mm Cemented Medialize Knee Dome Patellar Aox Sterile [id number] - [id number] Implanted:Qty: 1 on 03/19/2022 by Zaire Alba MD at [facility] Right: Knee [employer] 03/15/2026 [id number] / / [id number] [employer] Attune Cemented Posterior Stabilize Knee Right 4 Narrow Component [id number] - [id number] Implanted:Qty: 1 on 03/19/2022 by Zaire Alba MD at [facility] Right: Knee [employer] 10/14/2031 [id number] / / [id number] [employer] Attune S+ Cement Fix Bearing Knee 3 Baseplate Tibial [id number] - [id number] Implanted:Qty: 1 on 03/19/2022 by Zaire Alba MD at [facility] Right: Knee [employer] 01/14/2032 [id number] / / [id number] [employer] Attune 8mm Posterior Stabilize Fix Bearing Knee 4 Insert Tibial [id number] - [id number] Implanted:Qty: 1 on 03/19/2022 by Zaire Alba MD at [facility] Right: Knee [employer] 11/12/2026 [id number] / / [id number] [employer] Attune 32mm Cemented Medialize Knee Dome Patellar Aox Sterile [id number] - [id number] Implanted:Qty: 1 on 07/09/2022 by Zaire Abla MD at [facility] Left: Knee [employer] 04/15/2027 [id number] / / [id number] [employer] Attune Cemented Posterior Stabilize Knee Left 4 Narrow Component [id number] - [id number] Implanted:Qty: 1 on 07/09/2022 by Zaire Alba MD at [facility] Left: Knee [employer] 04/15/2032 [id number] / / [id number] [employer] Attune S+ Cement Fix Bearing Knee 3 Baseplate Tibial [id number] - [id number] Implanted:Qty: 1 on 07/09/2022 by Zaire Alba MD at [facility] Left: Knee [employer] 04/15/2032 [id number] / / [id number] [employer] Attune 6mm Posterior Stabilize Fix Bearing Knee 4 Insert Tibial [id number] - [id number] Implanted:Qty: 1 on 07/09/2022 by Zaire Alba MD at [facility] Left: Knee [employer] 03/15/2027 [id number] / / [id number] [employer] Cement Bone Simplex Gentamicin High Viscosity 40 6195-1-001 - [id number] Implanted:Qty: 1 on 07/09/2022 by Zaire Alba MD at [facility] Left: Knee [employer] 11/14/2023 6195-1-001 / / [id number] [employer] Cement Bone Simplex Gentamicin High Viscosity 40 6195-1-001 - [id number] Implanted:Qty: 1 on 07/09/2022 by Zaire Alba MD at [facility] Left: Knee [employer] 11/14/2023 6195-1-001 / / [id number] Bard Per[employer] V[employer] Ultraclip Bard 17ga 10cm 2 Trigger Permanent Ultrasound [id number] - [id number] Implanted:Qty: 1 on 10/08/2023 at [facility] Left: Breast [employer] [id number] / / [employer] Marker Image Hydromark Plus T5 Titanium 15ga Radiological Implant Sterile 4009-04-30-T5 - [id number] Implanted:Qty: 1 on 10/08/2023 at [facility] Left: Axilla [employer] [id number] 4009-04-30 -T5 / / [id number] [employer] Marker Tissue Rigid Needle Open Coil Radiopaque Clip Hydromark 18ga Titanium Hydrogel 0564-85-70-T3 - [id number] Implanted:Qty: 1 on 10/08/2023 at [facility] Left: Axilla [employer] [id number] 4009-05-03 -T3 / / [id number] Procedures Procedure Name Priority Date/Time Associated Diagnosis Comments EGFR STAT 06/21/2024 2:53 PM CDT Malignant neoplasm of overlapping sites of left breast in female, estrogen receptor positive (HCC) DIFFERENTIAL AUTO STAT 06/21/2024 2:5 3 PM CDT Malignant neoplasm of overlapping sites of left breast in female, estrogen receptor positive (HCC) CBC WITH AUTO DIFFERENTIAL STAT 06/21/2024 2:53 PM CDT Malignant neoplasm of overlapping sites of left breast in female, estrogen receptor positive (HCC) COMPREHENSIVE METABOLIC PANEL STAT 06/21/2024 2:53 PM CDT Malignant neoplasm of overlapping sites of left breast in female, estrogen receptor positive (HCC) PET/CT FDG SKULL TO THIGH Schedule EUNICE, Read EUNICE (Appt Today, Awaiting Results) 05/24/2024 12:53 PM CDT Malignant neoplasm of overlapping sites of left breast in female, estrogen receptor positive (HCC) CANCER ANTIGEN 15-3 STAT 05/24/2024 1 2:45 PM CDT Malignant neoplasm of overlapping sites of left breast in female, estrogen receptor positive (HCC) CEA STAT 05/24/2024 12:45 PM CDT Malignant neoplasm of overlapping sites of left breast in female, estrogen receptor positive (HCC) EGFR STAT 05/24/2024 12:45 PM CDT Malignant neoplasm of overlapping sites of left breast in female, estrogen receptor positive (HCC) DIFFERENTIAL AUTO STAT 05/24/2024 12: 45 PM CDT Malignant neoplasm of overlapping sites of left breast in female, estrogen receptor positive (HCC) CBC WITH AUTO DIFFERENTIAL STAT 05/24/2024 12:45 PM CDT Malignant neoplasm of overlapping sites of left breast in female, estrogen receptor positive (HCC) COMPREHENSIVE METABOLIC PANEL STAT 05/24/2024 12:45 PM CDT Malignant neoplasm of overlapping sites of left breast in female, estrogen receptor positive (HCC) EGFR STAT 04/26/2024 12:50 PM 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 Malignant neoplasm of overlapping sites of left breast in female, estrogen receptor positive (HCC) DIFFERENTIAL AUTO STAT 04/26/2024 12: 50 PM 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 Malignant neoplasm of overlapping sites of left breast in female, estrogen receptor positive (HCC) CBC WITH AUTO DIFFERENTIAL STAT 04/26/2024 12:50 PM 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 Malignant neoplasm of overlapping sites of left breast in female, estrogen receptor positive (HCC) COMPREHENSIVE METABOLIC PANEL STAT 04/26/2024 12:50 PM 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 73 m2 Comment: Interpretive Data Reference Interval Normal >/= 90 mL/min/1.73m2 Mildly decreased* 60 - 89 mL/min/1.73m2 Mildly to moderately decreased 45 - 59 mL/min/1.73m2 Moderately to severely decreased 30 - 44 mL/min/1.73m2 Severely decreased 15 - 29 mL/min/1.73m2 Kidney Failure < 15 mL/min/1.73m2 *Relative to young adult level Estimated glomerular filtration rate is determined by the 2020 CKD-EPI equation recommended by the National Kidney Foundation (A Unifying Approach to GFR Estimation: Recommendations of the NKF-ASK Task Force on Reassessing the Inclusion of Race in Diagnosing Kidney Disease, JASN 2020). The CKD-EPI equation should not be used for patients with unstable renal function and has not been validated in children and those over 70. Current interpretive data was last reviewed 2021. Blood 06/21/2024 2:53 PM CDT 06/21/2024 3:15 PM CDT us Lucille Singh MD LAB BLOOD ORDERABLES Final Result [facility] Department [place] [address] * (ABNORMAL) Differential, auto (06/21/2024 2:53 PM CDT) Neutrophil abs 2.23 1.50 - 6.50 K/cumm Comment:Testing performed by : [facility], [address] [place] [phone] Lymphocyte abs 0.52(L) 0.80 - 3.30 K/cumm CERNER BJ Comment:Testing performed by : [facility], [address] [place] [phone] Monocyte abs 0.32 0.20 - 0.80 K/cumm CERJEANMARIE BJ Comment:Testing performed by : [facility], [address] [place], [place] [phone] Eosinophil abs 0.09 0.00 - 0.50 K/cumm CERNER BJ Comment:Testing performed by : [facility], [address] [place] [phone] Basophil abs 0.05 0.00 - 0.10 K/cumm CERJEANMARIE BJ Comment:Testing performed by : [facility], [address] [place] [phone] Neutrophil pct 69.4 % CERJEANMARIE BJ Comment: Interpretive Data Percent cell count reference ranges are not reported, since discordance with absolute values may lead to misinterpretation of CBC data. Current Interpretive Data was last revised on 2017. Testing performed by: [facility], [address] [place] [phone] Lymphocyte pct 16.2 % CERJEANMARIE BJ Comment: Interpretive Data Percent cell count reference ranges are not reported, since discordance with absolute values may lead to misinterpretation of CBC data. Current Interpretive Data was last revised on 2017. Testing performed by: [facility], [address] [place] [phone] Monocyte pct 10.0 % CERJEANMARIE BJ Comment: Interpretive Data Percent cell count reference ranges are not reported, since discordance with absolute values may lead to misinterpretation of CBC data. Current Interpretive Data was last revised on 2017. Testing performed by: [facility], [address] [place] [phone] Eosinophil pct 2.9 % CERJEANMARIE BJ Comment: Interpretive Data Percent cell count reference ranges are not reported, since discordance with absolute values may lead to misinterpretation of CBC data. Current Interpretive Data was last revised on 2017. Testing performed by: [facility], [address] [place] [phone] Basophil pct 1.5 % CERJEANMARIE [facility] Comment: Interpretive Data Percent cell count reference ranges are not reported, since discordance with absolute values may lead to misinterpretation of CBC data. Current Interpretive Data was last revised on 2017. Testing performed by: [facility], [address] [place] [phone] Blood 06/21/2024 2:53 PM CDT 06/21/2024 3:16 PM CDT us Lucille Singh MD LAB BLOOD ORDERABLES Final Result [facility] Department [place] [address] * (ABNORMAL) CBC with auto differential (06/21/2024 2:53 PM CDT) WBC 3.21(L) 3.80 - 9.90 K/cumm Comment:Testing performed by : [facility] [facility], [address] [place], [place] [id number] Hgb 11.5(L) 11.9 - 15.5 g/dL CERNER BJ Comment:Testing performed by : [facility], [address] [place], [place] [id number] Hct 33.2(L) 35.6 - 45.5 % CERNER BJ Comment:Testing performed by : [facility], [address] [place], [place] [id number] Plt 186 150 - 400 K/cumm CERNER BJ Comment:Testing performed by : [facility], [address] [place], [place] [id number] MPV 7.9 6.8 - 10.4 fL CERNER BJ Comment:Testing performed by : [facility], [address] [place], [place] [id number] RBC 3.17(L) 3.90 - 5.20 M/cumm CERNER BJ Comment:Testing performed by : [facility], [address] [place], [place] [id number] MCV 104.8(H) 81.3 - 96.4 fL CERNER BJ Comment:Testing performed by : [facility], [address] [place], [place] [id number] MCH 36.4(H) 27.1 - 33.3 pg CERNER BJ Comment:Testing performed by : [facility], [address] [place], [place] [id number] MCHC 34.8 32.3 - 35.7 g/dL CERNER BJ Comment:Testing performed by : [facility], [address] [place], [place] [id number] RDW CV 14.7 11.1 - 14.9 % CERNER BJ Comment:Testing performed by : [facility], [address] [place] [address] NRBC abs 0.00 0.00 - 0.01 K/cumm CERNER BJ Comment:Testing performed by : [facility], [address] [place] [address] Blood 06/21/2024 2:53 PM CDT 06/21/2024 3:16 PM CDT Lucille Singh MD LAB BLOOD ORDERABLES Final Result [facility] Department [place] [address] * (ABNORMAL) Comprehensive metabolic panel (06/21/2024 2:53 PM CDT) Sodium 142 135 - 145 mmol/L Potassium, pl 4.6 3.3 - 4.9 mmol/L [facility] Chloride 107 97 - 110 mmol/L [facility] CO2 28 22 - 32 mmol/L [facility] Anion gap 7 2 - 15 mmol/L [facility] BUN 34(H) 6 - 25 mg/dL [facility] Creatinine 0.96 0.60 - 1.10 mg/dL [facility] Glucose 84 70 - 199 mg/dL [facility] Comment: Interpretive Data Fasting glucose >/= 126 mg/dl is diagnostic for diabetes. Fasting is defined as no caloric intake for at least 8 hours. Fasting glucose between 100 mg/dl to 125 mg/dl is diagnostic of prediabetes. In a patient with classic symptoms of hyperglycemia or hyperglycemic crisis, a random glucose >/= 200 mg/dl is diagnostic for diabetes. In the absence of unequivocal hyperglycemia, results should be confirmed by repeat testing. The classification and Diagnosis of Diabetes Diabetes Care 202; 46: S19-S40. Current interpretive data was last revised 2022. Calcium 10.0 8.5 - 10.3 mg/dL [facility] Bilirubin, total 0.2 0.1 - 1.2 mg/dL [facility] Protein, pl 7.4 6.5 - 8.5 g/dL [facility] Albumin 4.3 3.5 - 5.0 g/dL [facility] Alk phos 44 40 - 130 Units/L [facility] ALT 7 7 - 45 Units/L [facility] 21 10 - 45 Units/L [facility] Blood 06/21/2024 2:53 PM CDT 06/21/2024 3:15 PM CDT us Lucille Singh MD LAB BLOOD ORDERABLES Final Result NIK [facility] Department [place] [address] * PET/CT FDG Skull to Thigh (05/24/2024 12:53 PM CDT) Anatomical Region Laterality Modality N/A Positron Emissio n Tomography (PET) 05/24/2024 2:08 PM CDT Impressions 05/24/2024 2:56 PM CDT Near-complete metabolic response with single residual mildly hypermetabolic left axillary lymph node. All other previously FDG-avid lesions, including numerous osseous metastases, have metabolically resolved. Dictated by: Kayy Ibanez MD, MPH The radiology attending physician has personally reviewed this study, and had reviewed and/or edited this written report and agrees with it. Electronically signed by: Yaron Stoner M.D. Narrative 05/24/2024 2:56 PM CDT EXAMINATION: TUMOR FDG-PET/CT IMAGING DATE OF STUDY: 05/24/2024 SCANNER: [employer] Matternet (SQ1). This is a high-resolution scanner, which can result in higher SUVs (and even detection of previously unrecognized small lesions) compared to older scanners. RADIOPHARMACEUTICAL: 8.53 mCi F-18 Fluorodeoxyglucose (FDG) i.v. Injection site: Right antecubital HISTORY: 73-year-old female with history of treated thyroid cancer, treated skin cancer (squamous and basal cell carcinoma on the face and chest respectively), found to have left breast cancer with hypermetabolic left axillary and subpectoral lymph nodes as well as biopsy-proven osseous metastatic disease. Status post chemoimmunotherapy. The study is requested for treatment monitoring during therapy. Subsequent treatment strategy. TECHNIQUE: The patient's fasting blood glucose level, measured by glucometer before injection of FDG, was 81 mg/dL. After intravenous administration of FDG, noncontrast CT images were obtained for attenuation correction and for fusion with emission PET images to allow for anatomical localization of PET findings. Emission PET images were then obtained. The study was interpreted on the [employer] workstation. The mean liver SUV (reported for quality analyst purposes) is 3.2. The total scanned area was skull vertex to proximal thighs. Images of the body were obtained starting 77 minutes after injection of tracer. All reported SUVs are maximum SUVs, unless otherwise specified. COMPARISON: PET/CT 02/19/2024 DESCRIPTORS OF LESION FDG AVIDITY: Minimal: <= blood pool Mild: > blood pool and <= liver Moderate: > liver and <= 2x SUVmax liver Moderate to marked: >2x SUVmax liver and <= 3x SUVmax liver Marked: > 3x SUVmax liver FINDINGS: There is further interval decrease in the size and avidity of multiple left axillary and subpectoral lymph nodes. For reference, interval decrease in size of a left axillary lymph node now 1.1 x 0.8 cm with a maximum SUV of 3.3 (110/354), previously measuring 1.5 x 1.0 cm with an SUV max of 7.4. There is interval increase in sclerosis involving the posterior left iliac wing with further interval decrease in the degree of FDG avidity now measuring 1.4, similar to blood pool, previously 3.2 (228/354). Multiple additional lesions are also noted involving the lumbar vertebral bodies and posteromedial right ribs. The most FDG-avid lesion is left axillary lymph node, has a maximum SUV of 3.3, and approximate axial dimensions of 1.1 x [address] findings: Bilateral lens replacements. Moderate atherosclerotic calcifications of the coronary arteries. Moderate atherosclerotic calcifications of the abdominal aorta, which is normal in caliber. Calcified mediastinal lymphadenopathy. Calcified granulomas of the spleen. Calcified uterine fibroids. Unchanged 0.5 cm pulmonary nodule in the left lower lobe without FDG avidity. Scattered areas of mosaic attenuation are present. Procedure Note Yaron Stoner MD - 05/24/2024 EXAMINATION: TUMOR FDG-PET/CT IMAGING DATE OF STUDY: 05/24/2024 SCANNER: [facility] Matternet (SQ1). This is a high-resolution scanner, which can result in higher SUVs (and even detection of previously unrecognized small lesions) compared to older scanners. RADIOPHARMACEUTICAL: 8.53 mCi F-18 Fluorodeoxyglucose (FDG) i.v. Injection site: Right antecubital HISTORY: 73-year-old female with history of treated thyroid cancer, treated skin cancer (squamous and basal cell carcinoma on the face and chest respectively), found to have left breast cancer with hypermetabolic left axillary and subpectoral lymph nodes as well as biopsy-proven osseous metastatic disease. Status post chemoimmunotherapy. The study is requested for treatment monitoring during therapy. Subsequent treatment strategy. TECHNIQUE: The patient's fasting blood glucose level, measured by glucometer before injection of FDG, was 81 mg/dL. After intravenous administration of FDG, noncontrast CT images were obtained for attenuation correction and for fusion with emission PET images to allow for anatomical localization of PET findings. Emission PET images were then obtained. The study was interpreted on the [employer] workstation. The mean liver SUV (reported for quality analyst purposes) is 3.2. The total scanned area was skull vertex to proximal thighs. Images of the body were obtained starting 77 minutes after injection of tracer. All reported SUVs are maximum SUVs, unless otherwise specified. COMPARISON: PET/CT 02/19/2024 DESCRIPTORS OF LESION FDG AVIDITY: Minimal: <= blood pool Mild: > blood pool and <= liver Moderate: > liver and <= 2x SUVmax liver Moderate to marked: >2x SUVmax liver and <= 3x SUVmax liver Marked: > 3x SUVmax liver FINDINGS: There is further interval decrease in the size and avidity of multiple left axillary and subpectoral lymph nodes. For reference, interval decrease in size of a left axillary lymph node now 1.1 x 0.8 cm with a maximum SUV of 3.3 (110/354), previously measuring 1.5 x 1.0 cm with an SUV max of 7.4. There is interval increase in sclerosis involving the posterior left iliac wing with further interval decrease in the degree of FDG avidity now measuring 1.4, similar to blood pool, previously 3.2 (228/354). Multiple additional lesions are also noted involving the lumbar vertebral bodies and posteromedial right ribs. The most FDG-avid lesion is left axillary lymph node, has a maximum SUV of 3.3, and approximate axial dimensions of 1.1 x [address] findings: Bilateral lens replacements. Moderate atherosclerotic calcifications of the coronary arteries. Moderate atherosclerotic calcifications of the abdominal aorta, which is normal in caliber. Calcified mediastinal lymphadenopathy. Calcified granulomas of the spleen. Calcified uterine fibroids. Unchanged 0.5 cm pulmonary nodule in the left lower lobe without FDG avidity. Scattered areas of mosaic attenuation are present. IMPRESSION: Near-complete metabolic response with single residual mildly hypermetabolic left axillary lymph node. All other previously FDG-avid lesions, including numerous osseous metastases, have metabolically resolved. Dictated by: Kayy Ibanez MD, MPH The radiology attending physician has personally reviewed this study, and had reviewed and/or edited this written report and agrees with it. Electronically signed by: Yaron Stoner M.D. Lucille Singh MD IMG PET PROCEDURES F inal Result * eGFR (05/24/2024 12:45 PM CDT) eGFR 64 >=60 mL/min/1. 73 m2 Comment: Interpretive Data Reference Interval Normal >/= 90 mL/min/1.73m2 Mildly decreased* 60 - 89 mL/min/1.73m2 Mildly to moderately decreased 45 - 59 mL/min/1.73m2 Moderately to severely decreased 30 - 44 mL/min/1.73m2 Severely decreased 15 - 29 mL/min/1.73m2 Kidney Failure < 15 mL/min/1.73m2 *Relative to young adult level Estimated glomerular filtration rate is determined by the 2020 CKD-EPI equation recommended by the National Kidney Foundation (A Unifying Approach to GFR Estimation: Recommendations of the NKF-ASK Task Force on Reassessing the Inclusion of Race in Diagnosing Kidney Disease, JASN 2020). The CKD-EPI equation should not be used for patients with unstable renal function and has not been validated in children and those over 70. Current interpretive data was last reviewed 2021. Blood 05/24/2024 12:4 5 PM CDT 05/24/2024 12:50 PM CDT Lucille Singh MD LAB BLOOD ORDERABLES Final Result NIK [facility] Department [place] [address] * (ABNORMAL) Differential, auto (05/24/2024 12:45 PM CDT) Neutrophil abs 2.8 1.5 - 6.5 K/cumm Comment:Testing performed by : [facility], [address] [place] [phone] Lymphocyte abs 0.6(L) 0.8 - 3.3 K/cumm CERNER [facility] Comment:Testing performed by : [facility], [address] [place] [phone] Monocyte abs 0.3 0.2 - 0.8 K/cumm CERNER BJ Comment:Testing performed by : [facility], [address] [place] [phone] Eosinophil abs 0.1 0.0 - 0.5 K/cumm CERNER [facility] Comment:Testing performed by : [facility], [address] [place] [phone] Basophil abs 0.1 0.0 - 0.1 K/cumm CERNER [facility] Comment:Testing performed by : [facility], [address] [place] [phone] Neutrophil pct 72.0 % CERNER BJ Comment: Interpretive Data Percent cell count reference ranges are not reported, since discordance with absolute values may lead to misinterpretation of CBC data. Current Interpretive Data was last revised on 2017. Testing performed by: [facility], [address] [place] [phone] Lymphocyte pct 14.7 % CERNER BJ Comment: Interpretive Data Percent cell count reference ranges are not reported, since discordance with absolute values may lead to misinterpretation of CBC data. Current Interpretive Data was last revised on 2017. Testing performed by: [facility], [address] [place] [phone] Monocyte pct 8.6 % CERNER BJ Comment: Interpretive Data Percent cell count reference ranges are not reported, since discordance with absolute values may lead to misinterpretation of CBC data. Current Interpretive Data was last revised on 2017. Testing performed by: [facility], [address] [place] [phone] Eosinophil pct 2.5 % NIK GONZALEZ Comment: Interpretive Data Percent cell count reference ranges are not reported, since discordance with absolute values may lead to misinterpretation of CBC data. Current Interpretive Data was last revised on 2017. Testing performed by: [facility], [address] [place] [phone] Basophil pct 2.2 % NIK GONZALEZ Comment: Interpretive Data Percent cell count reference ranges are not reported, since discordance with absolute values may lead to misinterpretation of CBC data. Current Interpretive Data was last revised on 2017. Testing performed by: [facility], [address] [place] [phone] Blood 05/24/2024 12:4 5 PM CDT 05/24/2024 12:48 PM CDT us Lucille Singh MD LAB BLOOD ORDERABLES Final Result NIK GONZALEZ [facility] Department [place] [address] * (ABNORMAL) CBC with auto differential (05/24/2024 12:45 PM CDT) WBC 3.9 3.8 - 9.9 K/cumm Comment:Testing performed by : [facility], [address] [place] [phone] Hgb 11.6(L) 11.9 - 15.5 g/dL NIK GONZALEZ Comment:Testing performed by : [facility], [address] [place] [phone] Hct 33.6(L) 35.6 - 45.5 % NIK GONZALEZ Comment:Testing performed by : [facility], [address] [place] [address] Plt 192 150 - 400 K/cumm CERJEANMARIE [facility] Comment:Testing performed by : [facility], [address] [place] [address] MPV 7.3 6.8 - 10.4 fL CERJEANMARIE [facility] Comment:Testing performed by : [facility], [address] [place] [address] RBC 3.27(L) 3.90 - 5.20 M/cumm CERJEANMARIE [facility] Comment:Testing performed by : [facility], [address] [place] [address] MCV 102.8(H) 81.3 - 96.4 fL CERJEANMARIE [facility] Comment:Testing performed by : [facility], [address] [place] [address] MCH 35.4(H) 27.1 - 33.3 pg [facility] Comment:Testing performed by : [facility], [address] [place] [address] MCHC 34.4 32.3 - 35.7 g/dL CERJEANMARIE [facility] Comment:Testing performed by : [facility], [address] [place] [address] RDW CV 13.9 11.1 - 14.9 % [facility] Comment:Testing performed by : [facility], [address] [place] [address] NRBC abs 0.00 0.00 - 0.01 K/cumm [facility] Comment:Testing performed by : [facility], [address] [place] [address] Blood 05/24/2024 12:4 5 PM CDT 05/24/2024 12:48 PM CDT us Lucille Singh MD LAB BLOOD ORDERABLES Final Result [facility] Department [place] [address] * (ABNORMAL) Cancer antigen 15-3 (05/24/2024 12:45 PM CDT) Pathologist [facility] CA 15-3 ag 35.3(H) <=25.0 units/mL Comment: Interpretive Data [employer] CA 15-3 assay procedure was used. Results from different manufacturers or methods may not be comparable. Serial testing should be performed using the same method. Blood 05/24/2024 12:4 5 PM CDT 05/24/2024 2:51 PM CDT Lucille Singh MD LAB BLOOD ORDERABLES Final Result Performing Organization Address [facility] Co de Phone Number [facility] [employer] [place] [address] * (ABNORMAL) CEA (05/24/2024 12:45 PM CDT) [facility] CEA 5.3(H) <=5.0 ng/mL Comment: Interpretive Data: Reference Range: Non-Smokers: 0.0 5.0 ng/mL Smokers: 0.0 6.5 ng/mL [employer] CEA assay procedure was used. Results from different manufacturers or methods may not be comparable. Serial testing should be performed using the same method. Current interpretive data was last revised 2021. Blood 05/24/2024 12:4 5 PM CDT 05/24/2024 2:51 PM CDT Lucille Singh MD LAB BLOOD ORDERABLES Final Result [facility] [place] [address] * Comprehensive metabolic panel (05/24/2024 12:45 PM CDT) Pathologist [facility] Sodium 143 135 - 145 mmol/L Potassium, pl 4.6 3.3 - 4.9 mmol/L [facility] Chloride 107 97 - 110 mmol/L [facility] CO2 28 22 - 32 mmol/L [facility] Anion gap 8 2 - 15 mmol/L [facility] BUN 24 6 - 25 mg/dL [facility] Creatinine 0.94 0.60 - 1.10 mg/dL [facility] Glucose 93 70 - 199 mg/dL [facility] Comment: Interpretive Data Fasting glucose >/= 126 mg/dl is diagnostic for diabetes. Fasting is defined as no caloric intake for at least 8 hours. Fasting glucose between 100 mg/dl to 125 mg/dl is diagnostic of prediabetes. In a patient with classic symptoms of hyperglycemia or hyperglycemic crisis, a random glucose >/= 200 mg/dl is diagnostic for diabetes. In the absence of unequivocal hyperglycemia, results should be confirmed by repeat testing. The classification and Diagnosis of Diabetes Diabetes Care 2021; 46: S19-S40. Current interpretive data was last revised 2022. Calcium 10.3 8.5 - 10.3 mg/dL [facility] Bilirubin, total 0.3 0.1 - 1.2 mg/dL [facility] Protein, pl 7.6 6.5 - 8.5 g/dL [facility] Albumin 4.3 3.5 - 5.0 g/dL [facility] Alk phos 44 40 - 130 Units/L [facility] ALT 10 7 - 45 Units/L [facility] AST 23 10 - 45 Units/L [facility] Blood 05/24/2024 12:4 5 PM CDT 05/24/2024 12:50 PM CDT Lucille Singh MD LAB BLOOD ORDERABLES Final Result [facility] Department [place] [address] * (ABNORMAL) eGFR (04/26/2024 12:50 PM 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) eGFR 45(L) >=60 mL/min/1. 73 m2 Comment: Interpretive Data Reference Interval Normal >/= 90 mL/min/1.73m2 Mildly decreased* 60 - 89 mL/min/1.73m2 Mildly to moderately decreased 45 - 59 mL/min/1.73m2 Moderately to severely decreased 30 - 44 mL/min/1.73m2 Severely decreased 15 - 29 mL/min/1.73m2 Kidney Failure < 15 mL/min/1.73m2 *Relative to young adult level Estimated glomerular filtration rate is determined by the 2020 CKD-EPI equation recommended by the National Kidney Foundation (A Unifying Approach to GFR Estimation: Recommendations of the NKF-ASK Task Force on Reassessing the Inclusion of Race in Diagnosing Kidney Disease, JASN 2020). The CKD-EPI equation should not be used for patients with unstable renal function and has not been validated in children and those over 70. Current interpretive data was last reviewed 2021. Blood 04/26/2024 12:5 0 PM 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 04/26/2024 12:57 PM 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 Mckenna Dangelo [employer] LAB BLOOD ORDERABLES Final Result NIK [facility] Department [place] [address] * (ABNORMAL) Differential, auto (04/26/2024 12:50 PM 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) Neutrophil abs 2.7 1.5 - 6.5 K/cumm Comment:Testing performed by : [facility], [address] [place], [place] [id number] Lymphocyte abs 0.4(L) 0.8 - 3.3 K/cumm CERJEANMARIE [facility] Comment:Testing performed by : [facility], [address] [place], [place] [id number] Monocyte abs 0.3 0.2 - 0.8 K/cumm CERJEANMARIE BJ Comment:Testing performed by : [facility], [address] [place] [phone] Eosinophil abs 0.1 0.0 - 0.5 K/cumm CERJEANMARIE BJ Comment:Testing performed by : [facility], [address] [place] [phone] Basophil abs 0.1 0.0 - 0.1 K/cumm CERJEANMARIE EDMONDS Comment:Testing performed by : [facility], [address] [place] [phone] Neutrophil pct 74.6 % NIK EDMONDS Comment: Interpretive Data Percent cell count reference ranges are not reported, since discordance with absolute values may lead to misinterpretation of CBC data. Current Interpretive Data was last revised on 2017. Testing performed by: [facility], [address] [place] [phone] Lymphocyte pct 12.5 % NIK EDMONDS Comment: Interpretive Data Percent cell count reference ranges are not reported, since discordance with absolute values may lead to misinterpretation of CBC data. Current Interpretive Data was last revised on 2017. Testing performed by: [facility], [address] [place] [phone] Monocyte pct 8.9 % NIK EDMONDS Comment: Interpretive Data Percent cell count reference ranges are not reported, since discordance with absolute values may lead to misinterpretation of CBC data. Current Interpretive Data was last revised on 2017. Testing performed by: [facility], [address] [place] [phone] Eosinophil pct 2.6 % NIK EDMONDS Comment: Interpretive Data Percent cell count reference ranges are not reported, since discordance with absolute values may lead to misinterpretation of CBC data. Current Interpretive Data was last revised on 2017. Testing performed by: [facility], [address] [place] [phone] Basophil pct 1.4 % NIK EDMONDS Comment: Interpretive Data Percent cell count reference ranges are not reported, since discordance with absolute values may lead to misinterpretation of CBC data. Current Interpretive Data was last revised on 2017. Testing performed by: [facility], [address] [place] [phone] Blood 04/26/2024 12:5 0 PM 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 04/26/2024 12:54 PM 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 Mckenna Dangelo CREW TRUCK DRIVER LAB BLOOD ORDERABLES Final Result [facility] Department [place] [address] * (ABNORMAL) CBC with auto differential (04/26/2024 12:50 PM 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) WBC 3.6(L) 3.8 - 9.9 K/cumm Comment:Testing performed by : [facility], [address] [place] [address] Hgb 12.8 11.9 - 15.5 g/dL CERJEANMARIE BJ Comment:Testing performed by : [facility], [address] [place] [address] Hct 37.8 35.6 - 45.5 % CERJEANMARIE BJ Comment:Testing performed by : [facility], [address] [place] [address] Plt 203 150 - 400 K/cumm CERJEANMARIE BJ Comment:Testing performed by : [facility], [address] [place] [address] MPV 7.6 6.8 - 10.4 fL CERNER BJ Comment:Testing performed by : [facility], [address] [place] [address] RBC 3.61(L) 3.90 - 5.20 M/cumm CERJEANMARIE BJ Comment:Testing performed by : [facility], [address] [place] [address] MCV 104.8(H) 81.3 - 96.4 fL CERJEANMARIE BJ Comment:Testing performed by : [facility], [address] [place] [address] MCH 35.5(H) 27.1 - 33.3 pg CERNER BJ Comment:Testing performed by : [facility], [address] [place] [address] MCHC 33.9 32.3 - 35.7 g/dL CERNER BJ Comment:Testing performed by : [facility], [address] [place] [address] RDW CV 13.4 11.1 - 14.9 % CERJEANMARIE BJ Comment:Testing performed by : [facility], [address] [place] [address] NRBC abs 0.00 0.00 - 0.01 K/cumm [facility] Comment:Testing performed by : [facility], [address] [place] [address] Blood 04/26/2024 12:5 0 PM 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 04/26/2024 12:54 PM 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 Mckenna Stovally Antolin CREW TRUCK DRIVER LAB BLOOD ORDERABLES Final Result [facility] Department [place] [address] * (ABNORMAL) Comprehensive metabolic panel (04/26/2024 12:50 PM 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) Sodium 140 135 - 145 mmol/L Potassium, pl 5.1(H) 3.3 - 4.9 mmol/L [facility] Chloride 105 97 - 110 mmol/L [facility] CO2 29 22 - 32 mmol/L [facility] Anion gap 6 2 - 15 mmol/L [facility] BUN 30(H) 6 - 25 mg/dL [facility] Creatinine 1.25(H) 0.60 - 1.10 mg/dL [facility] Glucose 82 70 - 199 mg/dL [facility] Comment: Interpretive Data Fasting glucose >/= 126 mg/dl is diagnostic for diabetes. Fasting is defined as no caloric intake for at least 8 hours. Fasting glucose between 100 mg/dl to 125 mg/dl is diagnostic of prediabetes. In a patient with classic symptoms of hyperglycemia or hyperglycemic crisis, a random glucose >/= 200 mg/dl is diagnostic for diabetes. In the absence of unequivocal hyperglycemia, results should be confirmed by repeat testing. The classification and Diagnosis of Diabetes Diabetes Care 202; 46: S19-S40. Current interpretive data was last revised 2022. Calcium 10.3 8.5 - 10.3 mg/dL [facility] Bilirubin, total 0.2 0.1 - 1.2 mg/dL [facility] Protein, pl 8.0 6.5 - 8.5 g/dL [facility] Albumin 4.6 3.5 - 5.0 g/dL [facility]ERNER [facility] Alk phos 46 40 - 130 Units/L [facility] ALT 12 7 - 45 Units/L [facility] AST 29 10 - 45 Units/L [facility] Blood 04/26/2024 12:5 0 PM 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 04/26/2024 12:57 PM 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 Mckenna Francisco Antolin CREW TRUCK DRIVER LAB BLOOD ORDERABLES Final Result [facility] Department [place] [address] * (ABNORMAL) Screening Mammogram Bilateral W Marcio (09/21/2023 11:19 AM CDT) Anatomical Region Laterality Modality Breast Bilateral Mammography 09/21/2023 11:4 6 AM CDT Impressions 09/21/2023 11:46 AM CDT Mass in the upper outer left breast posteriorly and possible left axillary lymphadenopathy require further evaluation with additional mammographic images and left breast sonography. BI-RADS: 0 - Additional imaging evaluation is necessary. The patient has been or will be contacted. Electronically signed by: Dominic Salas M.D. Narrative 09/21/2023 11:46 AM CDT EXAMINATION: SCREENING MAMMOGRAM BILATERAL W MARCIO ORDERING HEALTHCARE PROVIDER: SELF SCREENING MAMMOGRAM HISTORY: Routine screening mammography. COMPARISON: 06/24/2022, 05/22/2021, 01/03/2020, 02/24/2018 TECHNIQUE: CC and MLO views of the bilateral breasts were obtained with digital technique using breast tomosynthesis with C view. Computer aided detection was utilized. FINDINGS: DENSITY: There are scattered fibroglandular elements in the bilateral breasts. BREASTS: There is a subcentimeter mass in the upper outer left breast posteriorly. There is also a density in the left axilla which may be lymphadenopathy. No other Suspicious masses, suspicious calcifications, or other suspicious findings in either breast. There has been no other suspicious interval change. us Self Screening Mammogram IMG MAMMO PROCEDURES Fi nal Result from Last 3 Months or Most Recently Relevant to Health Maintenance Insurance MEDICARE COMMERCIAL GENERIC MEDICARE COMMERCIAL GENERIC MEDICARE COMMERCIAL GENERIC MEDICARE COMMERCIAL GENERIC Advance Directives For more information, please contact: [phone] Documents on File Type Date Recorded Patient Inside Wireman Expl anation Advance Directives and Livin g Will 03/19/2022 8:00 AM * Full Code (Latest Code Status on File) Date Activated Date Inactivated Comments 07/09/2022 1:22 PM 2022 4:28 PM * Full Code Date Activated Date Inactivated Comments 03/19/2022 1:09 PM 03/20/2022 6:23 PM Care Teams Statistical Methods Professor Relationship Specialty Start Date End Date Bernard Nunez MD [address] [place] [address] PCP - General 01/06/17 Zaire Alba MD [address] [facility] [address] [place] [address] [place] [id number] Surgeon Orthopedic Surgery 03/20/22 Fran Angel MD [address] [place] [address] Referring Physician Ophthalmology 04/07/22
--- OUTSIDE RECORDS SUMMARY | 2024-06-29 14:50 | XMS_ITS | Clinical Summary ---
Author Organization 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,non-owned Affiliates and Associated Physician Practices is amultiple site organization consisting of ambulatory clinics and hospital sitesin [place], [place], [place] and [place]. This disclosure is being madepursuant to the Care Everywhere program and may not contain all information available regarding this patient. 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 Gender Identity Not on file Sexual Orientation Not on file Plan of Treatment Health Maintenance Due Date Last Done Comments BONE DENSITY TESTING 1950 COLOGUARD (AGES 45-75) - COL ON CA SCREENING 1950 COLON MONITORING 1949 COLONOSCOPY - COLON CA SCREENING 1949 CT COLONOGRAPHY - COLON CA SCREENING 1950 Colorectal Cancer Screening 1950 FIT - COLON CA SCREENING 1949 FLEX SIG - COLON CA SCREENING 1949 LIPID TESTING 1950 MAMMOGRAM 1950 MEDICARE AWV 12 MONTHS 1949 HEPATITIS C SCREENING 07/06/1967 DTAP/TDAP/TD VACCINES (1 - Tdap) 1968 PNEUMOCOCCAL VACCINE 50+ (1 of 1 - PCV) 07/11/1999 ZOSTER VACCINE (1 of 2) 07/11/1999 COVID-19 VACCINE (1 - 2023-2 5 season) 2023 DEPRESSION SCREENING 03/16/2024 Respiratory Syncytial Virus (RSV) Vaccine Pt: or over 60 yrs (1 - 1-dose 75+ series) 2024 INFLUENZA VACCINE (Season Ended) 2024 HEPATITIS B VACCINE Aged Out No longe r eligible based on patient's age to complete this topic HIB VACCINE Aged Out No longer eligi ble based on patient's age to complete this topic HPV VACCINE Aged Out No longer eligi ble based on patient's age to complete this topic MENINGOCOCCAL (Group B) VACC INE SHARED DECISION-MAKING Aged Out No longer eligibl e based on patient's age to complete this topic MENINGOCOCCAL GROUPS A/C/Y/W VACCINE Aged Out No longer eligible b ased on patient's age to complete this topic Procedures Procedure Name Priority Date/Time Associated Diagnosis Comments DERMATOPATHOLOGY Routine 06/23/2024 2:38 PM CDT from Last 3 Months Results * DERMATOPATHOLOGY (06/23/2024 2:38 PM CDT) Case Report Dermatopathology Report Case: [id number] Authorizing Provider: Paty Rowe DO Collected: 06/23/2024 02:38 PM Ordering Location: [facility] - Received: 06/24/2024 04:45 PM DermPath Lab Pathologist: Amy Dangelo MD Specimen: Skin, right forehead 1:41 PM CDT DERMATOPATHOLOGY LABORATORY Final Diagnosis Specimen A. 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 The specimen consists of a shave biopsy measuring 5x4x1 mm. Jar 0. 1:41 PM CDT DERMATOPATHOLOGY LABORATORY Microscopic Description Specimen A. SKIN, right forehead: The epidermis shows parakeratosis, full thickness disorderly maturation of keratinocytes, mitoses at different levels, and dyskeratotic cells. 1:41 PM CDT DERMATOPATHOLOGY LABORATORY Disclaimer An external and internal positive and negative controls are appropriate for the histochemical, immunohistochemical and immunofluorescence stain(s) in this case (if any), except where stated explicitly. The performance characteristics of the stain(s) cited in this report were developed and its performance characteristic determined by the Dermatopathology Laboratory at [facility], directed by Dr. Ronnie Waterman. These tests need not be, and therefore are not, approved by the [place] Food and Drug Administration. The tests are used for clinical purposes. Billing Codes Specimen Charges Stain Charges 61155 1 1:41 PM CDT DERMATOPATHOLOGY LABORATORY Embedded Images 1:41 PM CDT DERMATOPATHOLOGY LABORATORY Pathology/Cytolo gy TISSUE SPECIMEN FROM SKIN / Unknown 06/23/2024 2:38 PM CDT 06/24/2024 4:45 PM CDT us Paty Rowe DO LAB - PATHOLOGY/CYTOLOGY ORDERABLES Final Result DERMATOPATHOLOGY LABORATORY [facility] - Department of Dermatology [facility] [address] [place] [address], [address] [place] [address], [facility] [phone] from Last 3 Months Insurance MEDICARE [employer] MEDICARE MEDICARE SUPPLEMENT PAYOR GENERIC Care Teams Plant Operator Control Room Operator Relationship Specialty Start Date End Date Emery Nunez MD [facility] JOSE HAND [phone] PCP - General 02/01/19
--- OUTSIDE RECORDS SUMMARY | 2024-06-29 14:50 | XMS_ITS | Referral Summary ---
Author Organization [facility] [address] Address [address] [place] [address] Care Team Providers Care Grease Worker Name Role Phone Bernard Nunez MD Primary Care Provider [phone] Zaire Alba MD Unavailable [phone] Fran Angel MD Unavailable [phone] Encounters Date Type Department Care Team Description 06/21/2024 2:30 PM CDT Lab [facility] - Lab Collection [address] [facility] 6 [place] [address] Malignant neoplasm of overlapping sites of left breast in female, estrogen receptor positive (HCC) 06/21/2024 3:30 PM CDT Office Visit [facility] On[facility] [address] [place] [address] Floor 8 [place] [id number] Lucille Singh MD Malignant neoplasm of overlapping sites of left breast in female, estrogen receptor positive (HCC) (Primary Dx) 06/06/2024 4:15 PM CDT Office Visit [facility] Cardiology [facility] 8th [place] [address] [place] [address] Jose Escoto MD Essential hypertension (Primary Dx); Palpitations 06/06/2024 Telephone [facility] Card[facility] [address] [facility] 8th [place] [address] [place] [address] Jose Escoto MD 05/24/2024 Orders Only [facility] On[facility] [address] [facility] Floor 8 [place] [address] Shani Parekh RN 05/24/2024 Orders Only [facility] [address] [place] [address] Floor 8 [place] [address] Shani Parekh RN Malignant neoplasm of overlapping sites of left breast in female, estrogen receptor positive (HCC) (Primary Dx) 05/24/2024 2:00 PM CDT Office Visit [facility] Oncology [facility] Floor 8 [place] [address] Lucille Singh MD Malignant neoplasm of overlapping sites of left breast in female, estrogen receptor positive (HCC) (Primary Dx) 05/24/2024 3:15 PM CDT Research Med Pick-Up/CTRU Psychology Department Chair [facility] [address] Floor 6 [place] [address] Malignant neoplasm of overlapping sites of left breast in female, estrogen receptor positive (HCC) (Primary Dx) 05/24/2024 1:00 PM CDT Clinical Support [facility] [address] [facility] Floor 5 [place] [address] Malignant neoplasm of overlapping sites of left breast in female, estrogen receptor positive (HCC) 05/24/2024 10:33 AM CDT - 05/24/2024 11:59 PM CDT Hospital Encounter [facility] - PET [address] Floor 8 [place] [address] Discharge Disposition: Discharge to home or self care 05/24/2024 10:30 AM CDT - 05/24/2024 11:59 PM CDT Hospital Encounter [facility] - PET [address] Floor 8 [place] [address] Malignant neoplasm of overlapping sites of left breast in female, estrogen receptor positive (HCC) Discharge Disposition: Discharge to home or self care 04/26/2024 Orders Only [facility] On[facility] Floor 8 [place] [address] Shani Parekh RN 04/26/2024 3:00 PM MARINE [employer]MAN Infusion [facility] [address] [facility] Floor 5 [place] [address] Malignant neoplasm metastatic to bone (HCC) (Primary Dx); Malignant neoplasm of overlapping sites of left breast in female, estrogen receptor positive (HCC) 04/26/2024 1:00 PM MARINE FIREMAN Clinical Support [facility] Collection [address] [facility] Floor 5 [place] [address] Malignant neoplasm of overlapping sites of left breast in female, estrogen receptor positive (HCC) 04/26/2024 2:00 PM MARINE FIREMAN Office Visit [facility] On[facility] [address] [facility] Floor 8 [place] [address] Lucille Singh MD Malignant neoplasm of overlapping sites of left breast in female, estrogen receptor positive (HCC) (Primary Dx); Malignant neoplasm metastatic to bone (HCC) from Last 3 Months Allergies Active Allergy Reactions Criticality Noted Date [...] mcg total) by mouth daily 5 Active [facility] Abemaciclib (/TB CRC-060) 50 mg tablet Take 2 tablets (100 mg total) by mouth 2 (two) times a day Take at about the same times each day with or without food. Missed or vomited doses may not be made up. Avoid grapefruit juice/products, pomelos, Wood[place] oranges, Jeddo's Wort. Active calcium carbonate-vitam in D3 1,250mg [...] 1 3 025 Discontin ued(Alter carter therapy) [facility] [place] Abemaciclib (/TB CRC-060) 50 mg tablet Take 3 tablets (150 mg total) by mouth 2 (two) times a day Take at about the same times each day with or without food. Missed or vomited doses may not be made up. Avoid grapefruit juice/products, pomelos, [place]ford oranges, Jeddo's Wort. 025 Discontin ued(Alter carter therapy) letrozole [...] total) by mouth daily 5 025 Discontin ued(Helenefelicitas michel order) Hospital, Clinic, or Other Facility [...] (03/04/2022): Added automatically from request for surgery [id number] Basal cell carcinoma (BCC) of left lower eyelid 01/06/2022 Lesion of left lower eyelid 11/07/2021 Overview (11/07/2021): Added automatically from request for surgery [id number] Resolved Problems Problem Noted Date Diagnosed Date Resolved Date Primary osteoarthritis of left knee 06/23/2022 07/17/2022 Overview (06/23/2022): Added automatically from request for surgery [id number] Social History Tobacco Use Types Packs/Day Years Used Date Smoking Tobacco: Former Cigarettes 1 1 2 - 1991 Smokeless Tobacco: Never Tobacco Cessation:Counseling [...] on file Legal Sex Female 2:02 PM MARINE FI[employer]MAN Gender Identity Not on file Sexual Orientation Not on file Last Filed Vital Signs Vital Sign Reading [...] 06/21/2024 3:04 PM CDT Plan of Treatment Not on file Medical Devices Implanted Type Area Automation Technician Device Identifier Shelf Expiration Date Model / Serial / Lot Aundrea Craniomaxillofa cial Impl Soft Tissue [id number] Moist Tough Flex Sheet Enduragen [id number] - S0 - [id number] Implanted:Qty: 1 on 01/06/2022 by Bhanu Buchanan MD at [facility] Other - see comments Left: Eyelid [employer] Craniomaxillofacia l 04/15/2026 [id number] / 0 / [employer] Cement Bone Simplex Gentamicin High Viscosity 40 6195-1-001 - [id number] Implanted:Qty: 1 on 03/19/2022 by Zaire Alba MD at [facility] Right: Knee [employer] 06/14/2023 6195-1-001 / / [id number] [employer] Cement Bone Simplex Gentamicin High Viscosity 40 6195-1-001 - [id number] Implanted:Qty: 1 on 03/19/2022 by Zaire Alba MD at [facility] Right: Knee [employer] 06/14/2023 6195-1-001 / / [id number] [employer] Attune 32mm Cemented Medialize Knee Dome Patellar Aox Sterile [id number] - [id number] Implanted:Qty: 1 on 03/19/2022 by Zaire Alba MD at [facility] Right: Knee [employer] 03/15/2026 [id number] / / [id number] [employer] Attune Cemented Posterior Stabilize Knee Right 4 Narrow Component [id number] - [id number] Implanted:Qty: 1 on 03/19/2022 by Zaire Alba MD at [facility] Right: Knee [employer] 10/14/2031 [id number] / / [id number] [employer] Attune S+ Cement Fix Bearing Knee 3 Baseplate Tibial [id number] - [id number] Implanted:Qty: 1 on 03/19/2022 by Zaire Alba MD at [facility] Right: Knee [employer] 01/14/2032 [id number] / / [id number] [employer] Attune 8mm Posterior Stabilize Fix Bearing Knee 4 Insert Tibial [id number] - [id number] Implanted:Qty: 1 on 03/19/2022 by Zaire Alba MD at [facility] Right: Knee [employer] 11/12/2026 [id number] / / [id number] [employer] Attune 32mm Cemented Medialize Knee Dome Patellar Aox Sterile 595435058 - [id number] Implanted:Qty: 1 on 07/09/2022 by Zaire Alba MD at [facility] Left: Knee [employer] 04/15/2027 [id number] / / [id number] [employer] Attune Cemented Posterior Stabilize Knee Left 4 Narrow Component [id number] - [id number] Implanted:Qty: 1 on 07/09/2022 by Zaire Alba MD at [facility] Left: Knee [employer] 04/15/2032 [id number] / / [id number] [employer] Attune S+ Cement Fix Bearing Knee 3 Baseplate Tibial [id number] - [id number] Implanted:Qty: 1 on 07/09/2022 by Zaire Alba MD at [facility] Left: Knee [employer] 04/15/2032 [id number] / / [id number] [employer] Attune 6mm Posterior Stabilize Fix Bearing Knee 4 Insert Tibial [id number] - [id number] Implanted:Qty: 1 on 07/09/2022 by Zaire Alba MD at [facility] Left: Knee [employer] 03/15/2027 [id number] / / [id number] [employer] Cement Bone Simplex Gentamicin High Viscosity 40 6195-1-001 - [id number] Implanted:Qty: 1 on 07/09/2022 by Zaire Alba MD at [facility] Left: Knee [employer] 11/14/2023 6195-1-001 / / [id number] [employer] Cement Bone Simplex Gentamicin High Viscosity 40 6195-1-001 - [id number] Implanted:Qty: 1 on 07/09/2022 by Zaire Alba MD at [facility] Left: Knee [employer] 11/14/2023 6195-1-001 / / [id number] [employer] Ultraclip Bard 17ga 10cm 2 Trigger Permanent Ultrasound [id number] - [id number] Implanted:Qty: 1 on 10/08/2023 at [facility] Left: Breast [employer] [id number] / / [employer] Marker Image Hydromark Plus T5 Titanium 15ga Radiological Implant Sterile 4642-95-28-T5 - [id number] Implanted:Qty: 1 on 10/08/2023 at [facility] Left: Axilla [employer] [id number] 4009-04-30 -T5 / / [id number] [employer] Marker Tissue Rigid Needle Open Coil Radiopaque Clip Hydromark 18ga Titanium Hydrogel 5069-28-67-T3 - [id number] Implanted:Qty: 1 on 10/08/2023 at [facility] Left: Axilla [employer] [id number] 4009-05-03 -T3 / / [id number] Procedures Procedure Name Priority Date/Time Associated Diagnosis [...] positive (HCC) EGFR STAT 04/26/2024 12:50 PM MARINE FIREMAN Malignant neoplasm of overlapping sites of left breast in female, estrogen receptor positive (HCC) DIFFERENTIAL AUTO STAT 04/26/2024 12: 50 PM MARINE FIREMAN Malignant neoplasm of overlapping sites of left breast in female, estrogen receptor positive (HCC) CBC WITH AUTO DIFFERENTIAL STAT 04/26/2024 12:50 PM MARINE FIREMAN Malignant neoplasm of overlapping sites of left breast in female, estrogen receptor positive (HCC) COMPREHENSIVE METABOLIC PANEL STAT 04/26/2024 12:50 PM MARINE FIREMAN Malignant neoplasm of overlapping sites of left breast in female, estrogen receptor positive (HCC) SCREENING MAMMOGRAM BILATERAL W AMRCIO Schedule Routine, Read Routine (OP Routine) 09/21/2023 [...] 2:53 PM CDT 06/21/2024 3:15 PM CDT Lucille Singh MD LAB BLOOD ORDERABLES Final Result [facility] Department [place] [address] * (ABNORMAL) Differential, auto (06/21/2024 2:53 PM CDT) Neutrophil abs 2.23 1.50 - 6.50 K/cumm Comment:Testing performed by : [facility], [address] [place], [place] [id number] Lymphocyte abs 0.52(L) 0.80 - 3.30 K/cumm NIK [facility] Comment:Testing performed by : [facility], [address] [place] [address] Monocyte abs 0.32 0.20 - 0.80 K/cumm NIK [facility] Comment:Testing performed by : [facility], [address] [place] [address] Eosinophil abs 0.09 0.00 - 0.50 K/cumm NIK [facility] Comment:Testing performed by : [facility], [address] [place], [place] [phone] Basophil abs 0.05 0.00 - 0.10 K/cumm [facility] Comment:Testing performed by : [facility], [address] [place] [address] Neutrophil pct 69.4 % [facility] Comment: Interpretive Data Percent cell count reference ranges are not reported, since discordance with absolute values may lead to misinterpretation of CBC data. Current Interpretive Data was last revised on 2017. Testing performed by: [facility], [address] [place], [place] [phone] Lymphocyte pct 16.2 % CERN[facility] Comment: Interpretive Data Percent cell count reference ranges are not reported, since discordance with absolute values may lead to misinterpretation of CBC data. Current Interpretive Data was last revised on 2017. Testing performed by: [facility], [address] [place] [phone] Monocyte pct 10.0 % [facility] Comment: Interpretive Data Percent cell count reference ranges are not reported, since discordance with absolute values may lead to misinterpretation of CBC data. Current Interpretive Data was last revised on 2017. Testing performed by: [facility], [address] [place] [phone] Eosinophil pct 2.9 % [facility] Comment: Interpretive Data Percent cell count reference ranges are not reported, since discordance with absolute values may lead to misinterpretation of CBC data. Current Interpretive Data was last revised on 2017. Testing performed by: [facility], [address] [place] [phone] Basophil pct 1.5 % [facility] Comment: Interpretive Data Percent cell count reference ranges are not reported, since discordance with absolute values may lead to misinterpretation of CBC data. Current Interpretive Data was last revised on 2017. Testing performed by: [facility], [address] [place] [phone] Blood 06/21/2024 2:53 PM CDT 06/21/2024 3:16 PM CDT Lucille Singh MD LAB BLOOD ORDERABLES Final Result [facility] Department [place] [address] * (ABNORMAL) CBC with auto differential (06/21/2024 2:53 PM CDT) WBC 3.21(L) 3.80 - 9.90 K/cumm Comment:Testing performed by : [facility], [address] [place] [phone] Hgb 11.5(L) 11.9 - 15.5 g/dL [facility] Comment:Testing performed by : [facility], [address] [place], [place] [phone] Hct 33.2(L) 35.6 - 45.5 % [facility] Comment:Testing performed by : [facility], [address] [place], [place] [phone] Plt 186 150 - 400 K/cumm [facility] Comment:Testing performed by : [facility], [address] [place], [place] [phone] MPV 7.9 6.8 - 10.4 fL [facility] Comment:Testing performed by : [facility], [address] [place], [place] [phone] RBC 3.17(L) 3.90 - 5.20 M/cumm [facility] Comment:Testing performed by : [facility], [address] [place], [place] [phone] MCV 104.8(H) 81.3 - 96.4 fL [facility] Comment:Testing performed by : [facility], [address] [place], [place] [phone] MCH 36.4(H) 27.1 - 33.3 pg [facility] Comment:Testing performed by : [facility], [address] [place], [place] [phone] MCHC 34.8 32.3 - 35.7 g/dL [facility] Comment:Testing performed by : [facility], [address] [place], [place] [phone] RDW CV 14.7 11.1 - 14.9 % [facility] Comment:Testing performed by : [facility], [address] [place], [place] [phone] NRBC abs 0.00 0.00 - 0.01 K/cumm [facility] Comment:Testing performed by : [facility], [address] [place], [place] [phone] Blood 06/21/2024 2:53 PM CDT 06/21/2024 3:16 PM CDT us Foluso Cathy Maycolwa MD LAB BLOOD ORDERABLES Final Result [facility] Department [place] [address] * (ABNORMAL) Comprehensive metabolic panel (06/21/2024 2:53 PM CDT) Sodium 142 135 - 145 mmol/L Potassium, pl 4.6 3.3 - 4.9 mmol/L [facility] Chloride 107 97 - 110 mmol/L [facility] CO2 28 22 - 32 mmol/L [facility] Anion gap 7 2 - 15 mmol/L [facility] BUN 34(H) 6 - 25 mg/dL [facility] Creatinine 0.96 0.60 - 1.10 mg/dL [facility] Glucose 84 70 - 199 mg/dL [facility] Comment: Interpretive Data Fasting glucose >/= 126 [...] 2022. Calcium 10.0 8.5 - 10.3 mg/dL [facility] Bilirubin, total 0.2 0.1 - 1.2 mg/dL [facility] Protein, pl 7.4 6.5 - 8.5 g/dL [facility] Albumin 4.3 3.5 - 5.0 g/dL [facility] Alk phos 44 40 - 130 Units/L [facility] ALT 7 7 - 45 Units/L [facility] AST 21 10 - 45 Units/L [facility] Blood 06/21/2024 2:53 PM CDT 06/21/2024 3:15 PM CDT Lucille Singh MD LAB BLOOD ORDERABLES Final Result NIK [facility] Department [place] [address] * PET/CT FDG Skull to Thigh (05/24/2024 [...] FDG-PET/CT IMAGING DATE OF STUDY: 05/24/2024 SCANNER: [employer] (SQ1). This is a high-resolution scanner, which [...] obtained. The study was interpreted on the Munchkin workstation. The mean liver SUV (reported for quality assurance analyst purposes) is 3.2. The total scanned [...] FDG-PET/CT IMAGING DATE OF STUDY: 05/24/2024 SCANNER: [facility] [employer] (SQ1). This is a high-resolution scanner, which [...] obtained. The study was interpreted on the [employer] workstation. The mean liver SUV (reported for quality assurance analyst purposes) is 3.2. The total scanned [...] BLOOD ORDERABLES Final Result [facility] Department [place] [address] * (ABNORMAL) Differential, auto (05/24/2024 12:45 PM CDT) Neutrophil abs 2.8 1.5 - 6.5 K/cumm Comment:Testing performed by : [facility], [address] [place] [phone] Lymphocyte abs 0.6(L) 0.8 - 3.3 K/cumm [facility] Comment:Testing performed by : [facility], [address] [place] [phone] Monocyte abs 0.3 0.2 - 0.8 K/cumm [facility] Comment:Testing performed by : [facility], [address] [place], [place] [phone] Eosinophil abs 0.1 0.0 - 0.5 K/cumm [facility] Comment:Testing performed by : [facility], [address] [place] [address] Basophil abs 0.1 0.0 - 0.1 K/cumm [facility] Comment:Testing performed by : [facility], [address] [place] [address] Neutrophil pct 72.0 % [facility] Comment: Interpretive Data Percent cell count reference ranges are not reported, since discordance with absolute values may lead to misinterpretation of CBC data. Current Interpretive Data was last revised on 2017. Testing performed by: [facility], [address] [place] [phone] Lymphocyte pct 14.7 % [facility] Comment: Interpretive Data Percent cell count reference ranges are not reported, since discordance with absolute values may lead to misinterpretation of CBC data. Current Interpretive Data was last revised on 2017. Testing performed by: [facility], [address] [place] [phone] Monocyte pct 8.6 % [facility] Comment: Interpretive Data Percent cell count reference ranges are not reported, since discordance with absolute values may lead to misinterpretation of CBC data. Current Interpretive Data was last revised on 2017. Testing performed by: [facility], [address] [place] [phone] Eosinophil pct 2.5 % [facility] Comment: Interpretive Data Percent cell count reference ranges are not reported, since discordance with absolute values may lead to misinterpretation of CBC data. Current Interpretive Data was last revised on 2017. Testing performed by: [facility], [address] [place] [phone] Basophil pct 2.2 % [facility] Comment: Interpretive Data Percent cell count reference ranges are not reported, since discordance with absolute values may lead to misinterpretation of CBC data. Current Interpretive Data was last revised on 2017. Testing performed by: [facility], [address] [place] [address] Blood 05/24/2024 12:4 5 PM CDT 05/24/2024 12:48 PM CDT us Lucille Singh MD LAB BLOOD ORDERABLES Final Result [facility] Department [place] [address] * (ABNORMAL) CBC with auto differential (05/24/2024 12:45 PM CDT) WBC 3.9 3.8 - 9.9 K/cumm Comment:Testing performed by : [facility], [address] [place] [address] Hgb 11.6(L) 11.9 - 15.5 g/dL [facility] Comment:Testing performed by : [facility], [address] [place] [address] Hct 33.6(L) 35.6 - 45.5 % NIK [facility] Comment:Testing performed by : [facility], [address] [place] [address] Plt 192 150 - 400 K/cumm [facility] Comment:Testing performed by : [facility], [address] [place] [address] MPV 7.3 6.8 - 10.4 fL [facility] Comment:Testing performed by : [facility], [address] [place] [address] RBC 3.27(L) 3.90 - 5.20 M/cumm [facility] Comment:Testing performed by : [facility], [address] [place] [address] MCV 102.8(H) 81.3 - 96.4 fL [facility] Comment:Testing performed by : [facility], [address] [place], [place] [phone] MCH 35.4(H) 27.1 - 33.3 pg [facility] Comment:Testing performed by : [facility], [address] [place] [address] MCHC 34.4 32.3 - 35.7 g/dL [facility] Comment:Testing performed by : [facility], [address] [place] [address] RDW CV 13.9 11.1 - 14.9 % [facility] Comment:Testing performed by : [facility], [address] [place] [address] NRBC abs 0.00 0.00 - 0.01 K/cumm [facility] Comment:Testing performed by : [facility], [address] [place] [address] Blood 05/24/2024 12:4 5 PM CDT 05/24/2024 12:48 PM CDT Lucille Singh MD LAB BLOOD ORDERABLES Final Result [facility] Department [place] [address] * (ABNORMAL) Cancer antigen 15-3 (05/24/2024 12:45 PM CDT) CA 15-3 ag 35.3(H) <=25.0 units/mL Comment: Interpretive Data The [employer] CA 15-3 assay procedure was used. Results from different manufacturers or methods may not be comparable. Serial testing should be performed using the same method. Blood 05/24/2024 12:4 5 PM CDT 05/24/2024 2:51 PM CDT Lucille Singh MD LAB BLOOD ORDERABLES Final Result Performing Organization Address [facility] de Phone Number [facility] [place] [address] * (ABNORMAL) CEA (05/24/2024 12:45 PM CDT) Pathologist [facility] [place] CEA 5.3(H) <=5.0 ng/mL Comment: Interpretive Data: [...] BLOOD ORDERABLES Final Result Performing Organization Address [facility] [place] [address] * Comprehensive metabolic panel (05/24/2024 12:45 PM CDT) [facility] Sodium 143 135 - 145 mmol/L Potassium, pl 4.6 3.3 - 4.9 mmol/L [facility] Chloride 107 97 - 110 mmol/L [facility] CO2 28 22 - 32 mmol/L [facility] Anion gap 8 2 - 15 mmol/L [facility] BUN 24 6 - 25 mg/dL [facility] Creatinine 0.94 0.60 - 1.10 mg/dL [facility] Glucose 93 70 - 199 mg/dL [facility] Comment: Interpretive Data Fasting glucose >/= 126 [...] 2022. Calcium 10.3 8.5 - 10.3 mg/dL [facility] Bilirubin, total 0.3 0.1 - 1.2 mg/dL [facility] Protein, pl 7.6 6.5 - 8.5 g/dL [facility] Albumin 4.3 3.5 - 5.0 g/dL [facility] Alk phos 44 40 - 130 Units/L [facility] ALT 10 7 - 45 Units/L [facility] AST 23 10 - 45 Units/L [facility] Blood 05/24/2024 12:4 5 PM CDT 05/24/2024 12:50 PM CDT us Lucille Singh MD LAB BLOOD ORDERABLES Final Result [facility] Department [place] [address] * (ABNORMAL) eGFR (04/26/2024 12:50 PM MARINE FIREMAN) eGFR 45(L) >=60 mL/min/1. 73 m2 Comment: [...] Inclusion of Race in Diagnosing Kidney Disease, GENEVASMaria Ines 2020). The CKD-EPI equation should not be used for patients with unstable renal function and has not been validated in children and those over 70. Current interpretive data was last reviewed 2021. Blood 04/26/2024 12:5 0 PM MARINE FIREMAN 04/26/2024 12:57 PM MARINE FIREMAN Mckenna Francisco Antolin CREDIT CONTROL CLERK LAB BLOOD ORDERABLES Final Result [facility] Department [place] [address] * (ABNORMAL) Differential, auto (04/26/2024 12:50 PM MARINE FIREMAN) Neutrophil abs 2.7 1.5 - 6.5 K/cumm Comment:Testing performed by : [facility], [address] [place] [phone] Lymphocyte abs 0.4(L) 0.8 - 3.3 K/cumm [facility] Comment:Testing performed by : [facility], [address] [place] [phone] Monocyte abs 0.3 0.2 - 0.8 K/cumm [facility] Comment:Testing performed by : [facility], [address] [place] [phone] Eosinophil abs 0.1 0.0 - 0.5 K/cumm [facility] Comment:Testing performed by : [facility], [address] [place] [phone] Basophil abs 0.1 0.0 - 0.1 K/cumm [facility] Comment:Testing performed by : [facility], [address] [place] [phone] Neutrophil pct 74.6 % [facility] Comment: Interpretive Data Percent cell count reference ranges are not reported, since discordance with absolute values may lead to misinterpretation of CBC data. Current Interpretive Data was last revised on 2017. Testing performed by: [facility], [address] [place] [phone] Lymphocyte pct 12.5 % [facility] Comment: Interpretive Data Percent cell count reference ranges are not reported, since discordance with absolute values may lead to misinterpretation of CBC data. Current Interpretive Data was last revised on 2017. Testing performed by: [facility], [address] [place] [phone] Monocyte pct 8.9 % [facility] EDMON[facility] Comment: Interpretive Data Percent cell count reference ranges are not reported, since discordance with absolute values may lead to misinterpretation of CBC data. Current Interpretive Data was last revised on 2017. Testing performed by: [facility], [address] [place] [phone] Eosinophil pct 2.6 % [facility]ER[facility]AN[facility] EDMON[facility] Comment: Interpretive Data Percent cell count reference ranges are not reported, since discordance with absolute values may lead to misinterpretation of CBC data. Current Interpretive Data was last revised on 2017. Testing performed by: [facility], [address] [place] [phone] Basophil pct 1.4 % [facility]ER[facility]AN[facility]IE EDMON[facility] Comment: Interpretive Data Percent cell count reference ranges are not reported, since discordance with absolute values may lead to misinterpretation of CBC data. Current Interpretive Data was last revised on 2017. Testing performed by: [facility], [address] [place] [phone] Blood 04/26/2024 12:5 0 PM MARINE FIREMAN 04/26/2024 12:54 PM MARINE FIREMAN Mckenna Dangelo CREDIT CONTROL CLERK LAB BLOOD ORDERABLES Final Result NIK EDMON[facility] Department [place] [address] * (ABNORMAL) CBC with auto differential (04/26/2024 12:50 PM MARINE FIREMAN) WBC 3.6(L) 3.8 - 9.9 K/cumm Comment:Testing performed by : [facility], [address] [place] [address] Hgb 12.8 11.9 - 15.5 g/dL [facility] Comment:Testing performed by : [facility], [address] [place] [address] Hct 37.8 35.6 - 45.5 % [facility] Comment:Testing performed by : [facility], [address] [place], [place] [phone] Plt 203 150 - 400 K/cumm [facility] Comment:Testing performed by : [facility], [address] [place] [address] MPV 7.6 6.8 - 10.4 fL [facility] Comment:Testing performed by : [facility], [address] [place], [place] [phone] RBC 3.61(L) 3.90 - 5.20 M/cumm [facility]J Comment:Testing performed by : [facility], [address] [place] [address] MCV 104.8(H) 81.3 - 96.4 fL [facility] Comment:Testing performed by : [facility], [address] [place] [address] MCH 35.5(H) 27.1 - 33.3 pg [facility] Comment:Testing performed by : [facility], [address] [place] [address] MCHC 33.9 32.3 - 35.7 g/dL [facility] Comment:Testing performed by : [facility], [address] [place] [address] RDW CV 13.4 11.1 - 14.9 % [facility] Comment:Testing performed by : [facility], [address] [place] [address] NRBC abs 0.00 0.00 - 0.01 K/cumm [facility] Comment:Testing performed by : [facility], [address] [place] [address] Blood 04/26/2024 12:5 0 PM MARINE FIREMAN 04/26/2024 12:54 PM MARINE FIREMAN Mckenna Singh Antolin HERRERA LAB BLOOD ORDERABLES Final Result [facility] Department [place] [address] * (ABNORMAL) Comprehensive metabolic panel (04/26/2024 12:50 PM MARINE FIREMAN) Sodium 140 135 - 145 mmol/L Potassium, pl 5.1(H) 3.3 - 4.9 mmol/L [facility] Chloride 105 97 - 110 mmol/L [facility] CO2 29 22 - 32 mmol/L [facility] Anion gap 6 2 - 15 mmol/L [facility] BUN 30(H) 6 - 25 mg/dL [facility] Creatinine 1.25(H) 0.60 - 1.10 mg/dL [facility] Glucose 82 70 - 199 mg/dL [facility] Comment: Interpretive Data Fasting glucose >/= 126 [...] 2022. Calcium 10.3 8.5 - 10.3 mg/dL [facility] Bilirubin, total 0.2 0.1 - 1.2 mg/dL [facility] Protein, pl 8.0 6.5 - 8.5 g/dL [facility] Albumin 4.6 3.5 - 5.0 g/dL [facility] Alk phos 46 40 - 130 Units/L [facility] ALT 12 7 - 45 Units/L [facility] AST 29 10 - 45 Units/L [facility] Blood 04/26/2024 12:5 0 PM MARINE FIREMAN 04/26/2024 12:57 PM MARINE FIREMAN Mckenna Dangelo CREDIT CONTROL CLERK LAB BLOOD ORDERABLES Final Result [facility] Department [place] [address] * (ABNORMAL) Screening Mammogram Bilateral W Marcio [...] Advance Directives For more information, please contact: [phone] Documents on File Type Date 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 Advance Directives and Nagi salas Will 03/19/2022 8:00 AM * Full Code (Latest Code Status on File) Date Activated Date Inactivated Comments 07/09/2022 1:22 PM 2022 4:28 PM * Full Code Date Activated Date Inactivated Comments 03/19/2022 1:09 PM 03/20/2022 6:23 PM Care Teams Grease Worker Relationship Specialty Start Date End Date Bernard Nunez MD [address] [place] [address] PCP - General 01/06/17 Zaire Alba MD [address] [facility] [address] [place] [address] Surgeon Orthopedic Surgery 03/20/22 Fran Angel MD [address] [place] [address] Referring Physician Ophthalmology 04/07/22
--- OUTSIDE RECORDS SUMMARY | 2024-06-29 14:50 | XMS_ITS | Encounter Summary ---
Author Organization [facility] Address [address] [place] [address] Care Team Providers Care Wan Support Specialist Name Role Phone Emery Nunez MD Primary Care Provider [phone] Encounter Details Date Type Department Care Team (Late st Contact Info) Description 01/14/2023 Lab Requisition [facility] - DermPath Lab [address] [facility] [address] [facility] [place] [phone] Paty Rowe DO [address] [facility] [address] [place] [address] Social History Tobacco Use Types Packs/Day Years Used Date Smoking Tobacco: Never Assessed Comments Unknown Sex and Gender Information Value Date Recorded Sex Assigned at Not on file Legal Sex Female 5:48 PM BUSINESS SUPPORT SPECIALIST Gender Identity Not on file Sexual Orientation Not on file documented as of this encounter Plan of Treatment Not on file documented as of this encounter Procedures Procedure Name Priority Date/Time Associated Diagnosis Comments DERMATOPATHOLOGY Routine 01/14/2023 9:31 AM CDT documented in this encounter Results * DERMATOPATHOLOGY (01/14/2023 9:31 AM CDT) Case Report Dermatopathology Report Case: [id number] Authorizing Provider: Paty Rowe DO Collected: 01/14/2023 09:31 AM Ordering Location: [facility] DermPath Lab Received: 01/14/2023 03:24 PM Pathologist: Clari Dangelo MD Specimen: Skin, right chest 2:29 PM T DERMATOPATHOLOGY LABORATORY Final Diagnosis Specimen A. SKIN, right chest: BASAL CELL CARCINOMA, INFILTRATIVE PATTERN (C44.519) PRESENT AT DEEP MARGIN, FOCAL (see microscopic description) DERMAL SCAR (L90.5) 2:29 PM T DERMATOPATHOLOGY LABORATORY Clinical History Bx Proven BCC 2:29 PM T DERMATOPATHOLOGY LABORATORY Gross Description Specimen A: Received is one formalin filled container labeled with the patient's name and designated right chest. The specimen consists of a non-oriented ellipse of skin measuring 80r70w3 mm.The margin is inked green. The 12 o'clock and 6 o'clock tips are submitted in cassette 1. The remainder of the ellipse is serially sectioned and submitted in cassette 2 - 3. Jar 0. 2:29 PM T DERMATOPATHOLOGY LABORATORY Microscopic Description Specimen A. SKIN, right chest: Within the dermis there are nodular aggregates of basaloid cells associated with fibromyxoid stroma and epithelial-stromal clefts. At the advancing margin of the neoplasm, there are smaller angulated nests that infiltrate the dermis and display neurotropism. Small angulated nests are very focally present at the deep margin of the specimen. Adjacent to this, there is dermal fibrosis with vertically oriented vessels. Additional deeper sections were obtained and reviewed. 2:29 PM T DERMATOPATHOLOGY LABORATORY Disclaimer An external and internal positive and negative controls are appropriate for the histochemical, immunohistochemical and immunofluorescence stain(s) in this case (if any), except where stated explicitly. The performance characteristics of the stain(s) cited in this report were developed and its performance characteristic determined by the Dermatopathology Laboratory at [facility], directed by Dr. Ronnie Waterman. These tests need not be, and therefore are not, approved by the [place] Food and Drug Administration. The tests are used for clinical purposes. Billing Codes Specimen Charges Stain Charges 56904 1 2:29 PM CDT DERMATOPATHOLOGY LABORATORY Embedded Images 2:29 PM CDT DERMATOPATHOLOGY LABORATORY Pathology/Cytolo gy TISSUE SPECIMEN FROM SKIN / Unknown 01/14/2023 9:31 AM CDT 01/14/2023 3:24 PM CDT us Paty Rowe DO LAB - PATHOLOGY/CYTOLOGY ORDERABLES Final Result DERMATOPATHOLOGY LABORATORY [facility] - Department of Dermatology [facility] Medicine [address] [place] [address], [address] [phone] documented in this encounter Visit Diagnoses Not on filedocumented in this encounter Care Teams Wan Support Specialist Relationship Specialty Start Date End Date Emery Nunez MD [address] [place], [place] [phone] PCP - General 02/01/19 documented as of this encounter
--- OUTSIDE RECORDS SUMMARY | 2024-06-29 14:50 | XMS_ITS | Encounter Summary ---
Author Organization [facility] Address [address] [facility] [place] [address] Care Team Providers Care Wic Site Coordinator Name Role Phone Emery Nunez MD Primary Care Provider [phone] Encounter Details Date Type Department Care Team (Late st Contact Info) Description 06/23/2024 Lab Requisition [facility] - DermPath Lab [address] [facility] [place] [address] Paty Rowe DO [address] [facility] [address] [place] [address] Social History Tobacco Use Types Packs/Day Years Used Date Smoking Tobacco: Never Assessed Comments Unknown Sex and Gender Information Value Date Recorded Sex Assigned at Not on file 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 Gender Identity Not on file Sexual Orientation Not on file documented as of this encounter Plan of Treatment Not on file documented as of this encounter Procedures Procedure Name Priority Date/Time Associated Diagnosis Comments DERMATOPATHOLOGY Routine 06/23/2024 2:38 PM CDT documented in this encounter Results * DERMATOPATHOLOGY (06/23/2024 2:38 PM CDT) Case Report Dermatopathology Report Case: [id number] Authorizing Provider: Paty Rowe DO Collected: 06/23/2024 02:38 PM Ordering Location: [facility] - Received: 06/24/2024 04:45 PM DermPath Lab Pathologist: Amy Dangelo MD Specimen: Skin, right forehead 1:41 PM CDT DERMATOPATHOLOGY LABORATORY Final Diagnosis Specimen A. 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 Ronnie Waterman. These tests need not be, and therefore are not, approved by the [place] Food and Drug Administration. The tests are used for clinical purposes. Billing Codes Specimen Charges Stain Charges 83044 1 1:41 PM CDT DERMATOPATHOLOGY LABORATORY Embedded Images 1:41 PM CDT DERMATOPATHOLOGY LABORATORY Pathology/Cytolo gy TISSUE SPECIMEN FROM SKIN / Unknown 06/23/2024 2:38 PM CDT 06/24/2024 4:45 PM CDT us Paty Rowe DO LAB - PATHOLOGY/CYTOLOGY ORDERABLES Final Result DERMATOPATHOLOGY LABORATORY [facility] - Department of Dermatology [address], [address] [phone] documented in this encounter Visit Diagnoses Not on filedocumented in this encounter Care Teams Wic Site Coordinator Relationship Specialty Start Date End Date Emery Nunez MD [address] [phone] PCP - General 02/01/19 documented as of this encounter
--- OUTSIDE RECORDS SUMMARY | 2024-06-29 14:50 | XMS_ITS | Encounter Summary ---
Author Organization [facility] Address [address] [place] [address] Phone Care Team Providers Care Machine Binder Stripper Name Role Phone Bernard Nunez MD Primary Care Provider [phone] Teresa Santana RN Unavailable Unavailable [facility] langford APRN, SLOTTER OPERATOR HELPER Unavailable Matt Paul MD Unavailable [phone] Reason for Visit * Reason Onset Date Comments Medication Refill 05/31/2020 Encounter Details Date Type Department Care Team (Late st Contact Info) Description 05/31/2020 Refill [facility] [address] [place] [address] Angela Cary, PAC [address] [place] [address] Medication Refill Social History Tobacco Use Types [...] encounter Miscellaneous Notes * Telephone Encounter - Trini Deras RN - 06/01/2020 12:20 PM CDT Please review and sign. * Telephone Encounter - Dolly Nolan - 05/31/2020 1:29 PM CDT Images from the original note were not included. Received a faxed Rx request from pharmacy. Reordered refill medication(s) requested and pended for nurse and physician/ROCIO review. Refill encounter routed to nurse [facility] pool for processing. documented in this encounter Plan of Treatment Upcoming Encounters Date Type Department Care Team (Late st Contact Info) Description 07/12/2024 10:15 AM CDT Office Visit [facility] - Internal Medicine - [place] [address] [place] [address] Bernard Nunez MD [address] [place] [address] documented as of this encounter Visit Diagnoses Not on filedocumented in this encounter Additional Health Concerns Infection Onset Date Last Indicated Resolved Time Respiratory Rule-Out 05/27/2023 05/27/2023 024 3:03 PM CDT COVID - 19 05/27/2023 05/27/2023 05/27/2023 3:03 PM CDT Assessment Noted Time PHQ-9 Depression Total Score: 0 04/12/19 21 9:00 AM IRONWORKER WIRE FENCE ERECTOR documented as of this encounter Care Teams Machine Binder Stripper Relationship Specialty Start Date End Date Bernard Nunez MD [address] [place] [address] PCP - General Internal Medicine 06/27/15 Teresa Santana, RN [place] Nurse Caustic Room Attendant 04/15/23 04/15/24 Trini Shoemaker APRN, SLOTTER OPERATOR HELPER [address] [place] [address] Nurse Practitioner Advanced Practice Nurse 12/10/22 Matt Paul MD [address] [place] [address] Consulting Physician Gastroenterology 01/23/22 documented as of this encounter
--- OUTSIDE RECORDS SUMMARY | 2024-06-29 14:50 | XMS_ITS | Continuity of Care Document ---
Author Organization [facility] [employer] [facility] Address [address] [place] [address] Phone Care Team Providers Care Criminal Legal Assistant Name Role Phone Km Teresa MD, MD Unavailable Unavailab le Allergies, Adverse Reactions, Alerts Substance Reaction Status Criticality Penicillins Active No Information Medications Medication Instructions Dosage Effective Dates (start - stop) Status Comments metoprolol succinate ER 50 mg tablet,extended release 24 hr take 1 tablet (50MG) by oral route every day 50 MG - Active levothyroxine 125 mcg capsule take 1 capsule (125MCG) by oral route every day 125 MCG - Active Effexor XR 150 mg capsule,extended release take 1 capsule (150MG) by oral route every day 150 MG - Active Fish Oil 120 mg-180 mg capsule - Active calcium 500 mg tablet - Active OSTEO BI-FLEX (unknown strength) Not Available - Active Procedures Procedure Date Office/outpatient Visit, Est Advance Directives Directive Yes / No Effective Date File Name Resuscitation Not Answered N/A N/A Life Support Not Answered N/A N/A Intubation Not Answered N/A N/A Antibiotics Not Answered N/A N/A IV Fluid Support Not Answered N/A N/A Tube Feed Not Answered N/A N/A Other Directive N/A N/A WARNING:The information contained in this section is historical and is provided for information only and does not constitute a legal document or any assurance that the information is still accurate. Please verify the information with the acosta of the legal document before using it for clinical purposes. Encounters Encounter Description Practice Location Reason(s) For Visit Diagnoses Date Provider Providers Copied on Encounter Office/outpat ient Visit, Est [facility], [address], [place], [place], [id number], [place] tel:[phone] SEC Edmund GARCIA Professional [employer] [facility] [address], [address], [place], [address], [place]. tel:[phone] Referring Provider: Km Teresa MD P, [address], [place], [address]. tel:[phone] Family History Family Member Type Diagnosis Age At Onset Problem (finding) Mother Problem (finding) glaucoma Payers Payer name Insurance type Covered green party ID Kenn villalpando(s) [facility] Commercial CI [id number] Social History Type Description Quantity Date Captured Comments Alcohol Use Details No Caffeine Use Details Tobacco Use Status No Information Smoking Status No Information Non-Smoking Tobacco Use Details : No Details Available : No Details Available Sex Female Chief Complaint And Reason For Visit No Information Reason For Referral Reason For Referral No Information History Of Present Illness Encounter Date Complaint History Of Prese nt Illness No Information Functional Status Date Functional Assessmen t No Information Instructions Date Instruction Additional Infor mation VISUAL DISTORTIONS N EC - NO HOLES OR TEARS OD - HAS PVD, RTC ROUTINE. Related to [employer] NEC Assessments Type Assessment Date No Information Patient Care Teams Name Effective Dates (start - stop) Status Members No Information
--- OUTSIDE RECORDS SUMMARY | 2024-06-29 14:50 | XMS_ITS | Clinical Summary ---
Author Organization [facility] Address [address] [place] [address] Phone Care Team Providers Care Bread Supervisor Name Role Phone Bernard Nunez MD Primary Care Provider Trini Shoemaker APRN, GRAPHICS EDIT TECHNICIAN Unavailable Matt Paul MD Unavailable [phone] Allergies Active Allergy Reactions Criticality Noted Date Comments Penicillins Hives 01/20/2011 Medications [place]-Glucosam ine-Vit D (Osteo Bi-Flex One Per Day) Tablet Take by mouth daily. Active [place]-3 Fatty Acids (FISH OIL PO) Take by mouth daily. Active Biotin 1 MG Capsule Take 1 Capsule by mouth. Active Acetaminophen (TYLENOL ARTHRITIS PAIN PO)Indications:Eso phageal dysphagia,Gastroes ophageal reflux disease with esophagitis without hemorrhage Take by mouth. Active Ascorbic Acid 500 MG Chewable Tablet Take by mouth. 03/20/19 23 Active Calcium Carbonate-Vitamin D 500-5 MG-MCG Tablet Take 1 Tablet by mouth. Active senna-docusate (SENOKOT S) 8.6-50 MG Tablet Take 2 Tablets by mouth. 03/20/19 23 Active Vitamin D3 1000 UNIT Tablet Take 1,000 Units by mouth. Active MAGNESIUM PO Take by mouth. Active hydrALAZINE 50 MG Tablet 1 1/2 tab po bid 270 Tablet 1 06/02/19 24 Active aspirin EC 81 MG Tablet Delayed Response Take 81 mg by mouth daily. Active metoprolol tartrate (LOPRESSOR) 50 MG Tablet TAKE ONE AND ONE-HALF TABLETS IN THE MORNING AND 1 TABLET IN THE EVENING 225 Tablet 3 12/02/19 24 Active levothyroxine (SYNTHROID) 125 MCG TabletIndications: Other specified hypothyroidism Take 1 Tablet by mouth daily. 90 Tablet 3 01/18/20 24 Active venlafaxine (EFFEXOR-XR) 150 MG CAPSULE SR 24 HR TAKE 1 CAPSULE DAILY 90 Capsule 3 03/14/20 24 Active atorvastatin (LIPITOR) 10 MG Tablet TAKE 1 TABLET NIGHTLY 90 Tablet 1 03/22/19 25 Active pantoprazole (PROTONIX) 40 MG Tablet Delayed ResponseIndication s:Gastroesophageal reflux disease with esophagitis without hemorrhage TAKE 1 TABLET DAILY 90 Tablet 1 03/22/19 25 Active ALPRAZolam (XANAX) 0.25 MG TabletIndications: Generalized anxiety disorder TAKE 1 TABLET BY MOUTH ONCE DAILY NEEDED FOR ANXIETY 30 Tablet 05/24/19 25 Active zolpidem (AMBIEN) 5 MG TabletIndications: Primary insomnia TAKE 1 TABLET BY MOUTH NIGHTLY NEEDED FOR SLEEP 30 Tablet 06/28/19 25 Active zolpidem (AMBIEN) 5 MG TabletIndications: Primary insomnia TAKE 1 TABLET BY MOUTH NIGHTLY NEEDED FOR SLEEP 30 Tablet 05/24/19 25 025 Discontinued Active Problems Problem Noted Date Diagnosed Date Gastroesophageal reflux dise ase with esophagitis without hemorrhage 09/29/2022 Other hyperlipidemia 01/18/2021 Generalized anxiety disorder 06/08/2020 Other specified hypothyroidism 04/12/2020 Dysthymic disorder 04/12/2020 Age-related osteoporosis wit hout current pathological fracture 04/12/2020 Obstructive sleep apnea 09/26/2016 Essential (primary) hypertension 01/20/2011 Encounters Date Type Department Care Team Description 06/29/2024 Telephone [facility] Medical [facility] - Internal Medicine [facility] [address] [place] [address] Bernard Nunez MD 06/27/2024 Refill [facility] - Internal Medicine - [place] [address] [place] [address] Bernard Nunez MD Medication Refill 05/21/2024 [facility] [address] [address] Bernard Nunez MD Medication Refill 04/15/2024 Patient Outreach [facility] HealthCare Guest Laundry Attendant Management [address] [place] [id number] Teresa Santana, SMITH Care Management ( RN Graduated) 04/12/2024 10:15 AM BLEACH TESTER Office Visit [facility] Internal [facility] [address] [place] [phone] Bernard Nunez MD Essential (primary) hypertension (Primary Dx); Generalized anxiety disorder; Primary insomnia; Other hyperlipidemia; Other specified hypothyroidism Discharge Disposition: Discharged to home or Selfcare 04/12/2024 Travel from Last 3 Months Immunizations Immunization Administration Dates Next Due Covid-19, Mrna, Lnp-s, PF, 1 00 mcg/0.5 mL Dose (Moderna) 06/22/2020,05/23/2020 Covid-19, Mrna, Lnp-s, PF, 5 0 mcg/0.25 mL dose (Moderna) 02/16/2021 Covid-19, Mrna, Lnp-s, Pf, 3 0 Mcg/0.3 Ml Dose (Pfizer) 11/24/2023 DTAP VACCINE 09/15/2011 Influenza Vaccine greater than 3 yrs 11/25/2022, 01/04/2020 Influenza Vaccine less than 3 yrs 11/24/2023 Influenza, High-dose, Quadrivalent 12/25/2021,,01/04/2020 Influenza, high-dose, trivalent, PF 12/25/2021,1 ,02/24/2019 MMR Vaccine 02/12/2015 Pneumococcal Vaccine - 13 Valent 01/04/2020,06/15 Pneumococcal Vaccine Adult - 23 Valent RSV, Recombinant, Protein Yates bunit Rsvpref, Adjuvant Recon (Arexvy) 11/25/2022 Family History Medical History Relation Name Comments Cancer Brother thyroid Bipolar Disorder Daughter Cancer Father henri pancreatic Cancer Mother guero Ovarian Cancer Mother guero Breast Cancer Paternal Grandmother Cancer Son Lung Relation Name Status Comments Brother Alive Daughter Alive Father henri Mother guero Paternal Grandmother Son Social History Tobacco Use Types Packs/Day Years Used Date Smoking Tobacco: Former Cigarettes 1 10 1984 Passive Smoke Exposure: Past Smokeless Tobacco: Never Tobacco Cessation:Counseling Given: No Alcohol Use Standard Drinks/Week Comments Never 0 (1 standard drink = 0.6 oz pur e alcohol) [facility] Utilities Answer Date Recorded In the past 12 months has th e [employer], gas, oil, or water [employer] threatened to shut off services in your [...] week 01/11/2024 How often do you attend [facility] or pentecostal services? More than 4 times per year 01/11/2024 Do you belong to any clubs o r organizations such as restorationism groups, unions, fraternal or athletic groups, or [...] Total Score - Questions 1-9 0 03/17 [facility] [place] of Occupat ional Health - Occupational Stress Questionnaire Answer Date Recorded [...] place to sleep or slept in a long term (including now)? No 06/30/2023 Housing Stability Vital [...] any time in the past 12 m [facility], were you homeless or living in a long term (including now)? No 01/11/2024 Sexually Active Control Partners Comments Not Currently Male Comments No Sex and Gender Information Value Date Recorded Sex Assigned at Not on file Legal Sex Female 12:02 AM CDT Gender Identity Not on file Sexual Orientation Not on file Last Filed Vital Signs Vital Sign Reading Time Taken Comments Blood Pressure 138/68 04/12/2024 10:17 AM BLEACH TESTER Pulse 52 04/12/2024 10:17 AM BLEACH TESTER Temperature 36.6 C (97.9 F) 04/12/2024 10:17 AM BLEACH TESTER Respiratory Rate 12 10/01/2023 10:48 AM CDT Oxygen Saturation 97% 04/12/2024 10:17 AM BLEACH TESTER Inhaled Oxygen Concentration - - Weight 95.3 kg (210 lb) 04/12/2024 10:17 AM BLEACH TESTER Height 154.9 cm (5' 1 ) 04/12/2024 10:17 AM BLEACH TESTER Body Mass Index 39.68 04/12/2024 10:17 AM BLEACH TESTER Plan of Treatment Upcoming Encounters Date Type Department Care Team (Late st Contact Info) Description 07/12/2024 10:15 AM CDT Office Visit [facility] - Internal Medicine - [place] [address] [place] [phone] Bernard Nunez MD [address] [facility] [facility] [address] Health Maintenance Due Date Last Done Comments Hepatitis C Virus (HCV) Screening 1950 Cologuard 07/11/1999 Immunochemical Fecal Occult Blood 07/11/1999 Zoster Immunization (1 of 2) 07/11/1999 Hepatitis B Immunization (1 of 3 - Risk 3-dose series) 2009 SARS-COV-2 Immunization ( season) 2024 11/24/2023, 02/16/2021, 06/22/2020, Additional history exists DEXA Bone Density 02/25/2024 02/24/2022 Discussion re Stopping Mammograms 2024 Mammogram 10/15/2024 10/16/2023, 09/14, 09/28/2023, Additional history exists Colonoscopy 01/27/2033 01/27/2023, 07/2021, 05/19/2011, Additional history exists Colorectal Cancer Screening 01/27/2033 01/27/2023, 07/2021, 05/19/2011 DTaP/Tdap/Td Immunization Discontinued 09/15/2011 Pneumococcal Immunization (50+ years) Completed 06/11/2021, 01/04/2020, 07/05/2015 Pneumococcal Immunization Combined Discontinued 06/11/2021, 01/04/2020, 07/05/2015 Respiratory Syncytial Virus (RSV) Immunization (Adult) Completed 11/25/2022 Influenza Immunization Completed , 11/25/2022, 12/25/2021, Additional history exists Meningococcal Immunization (ACWY) Aged Out No longer eligible based on patient's age to complete this topic Rotavirus Immunization Aged Out No lo nger eligible based on patient's age to complete this topic Goals Goal Patient Goal Type Associated Problems Recent Progress Patient-Stated? Author Behavioral Health Behavioral Health On track( 024 9:58 AM CDT) Yes Angel Trujillo, RIVET TESTER Note: I want to get through this grief. Goal/Objective: Increase coping skills. Anticipated Time Frame for Goal Completion: 6 months Goal Reviewed with: patient Readiness to change: Ready to change Department associated with goal: [facility] Steps to achieve goal: [...] aid in managing problematic responses to grief. Procedures Procedure Name Priority Date/Time Associated Diagnosis Comments MAMMOGRAM BILATERAL GENERIC 09/28/2023 12:00 AM CDT [place] BONE DENSITOMETRY AXIAL SKELETON Routine 02/24/2022 2:25 PM BLEACH TESTER Age-related osteoporosis without current pathological fracture HM COLONOSCOPY Routine 05/19/2011 from Last 3 Months or Most Recently Relevant to Health Maintenance Results * MAMMOGRAM BILATERAL MISCELLANEOUS (09/28/2023 12:00 AM CDT) 09/28/2023 us Provider Scan IMG MAMMO ORDERABLES Final Resul t SCAN * [facility] BONE DENSITOMETRY AXIAL SKELETON (02/24/2022 2:25 PM BLEACH TESTER) Anatomical Region Laterality Modality BODY N/A Computed Radiogr aphy 02/25/2022 8:34 AM BLEACH TESTER Impressions 02/25/2022 8:37 AM BLEACH TESTER IMPRESSION: Low bone mass REFERENCE: Bone mineral density: Normal (T-score above or = -1.0) Low bone mass (T-score between -1.0 and -2.5) replaces the previously used term osteopenia Osteoporosis (T-score = or below -2.5) Medical evaluation for secondary causes of low bone mineral density may be appropriate. FRAX is a World Health Organization validated fracture risk assessment tool that calculates a person's 10 year probability of a major osteoporosis related fracture and hip fracture. According to the National Osteoporosis Foundation guidelines, postmenopausal women and men age 50 or older with low bone mass and a 10 year probability of a major osteoporosis related fracture = or greater than 20% or a 10 year probability of a hip fracture = or greater than 3% should be considered for treatment. For further information, including treatment recommendations, please refer to the 2013 ISCD Official Positions (http://www.iscd.org) and the NOF's Clinician's Guide to Prevention and Treatment of Osteoporosis (http://www.nof.org/professionals/clinical-guidelines) Narrative 02/25/2022 8:37 AM BLEACH TESTER EXAM DESCRIPTION: [facility] BONE DENSITOMETRY AXIAL SKELETON REASON FOR STUDY: 71 y/o year old F with given history of screening. Galvanizing Pot Runner/Model: [employer] (S/N [id number]) CLINICAL INFORMATION: Current height: 60 inches Maximum height: 61 inches Weight: 180 pounds Risk factors: None COMPARISON: None available. FINDINGS: AP LUMBAR SPINE L1-L4: Total BMD is 0.897 g/cm2 T-score is -2.4 LEFT HIP: Total BMD is 0.871 g/cm2 T-score is -1.1 Femoral neck BMD is 0.777 g/cm2 T-score is -1.9 FRAX: 10 year risk for a major osteoporotic fracture is 11.1 %, 10 year risk for a hip fracture is 2.2 % THIS IS AN ELECTRONICALLY VERIFIED FINAL REPORT 02/25/2022 8:34 AM - Electronically signed by Thania Naylor M.D. TW: Report ID: [id number] Reading Location: [place] [address] Procedure Note Thania Naylor MD - 02/25/2022 EXAM DESCRIPTION: [facility] BONE DENSITOMETRY AXIAL SKELETON REASON FOR STUDY: 71 y/o year old F with given history of screening. Galvanizing Pot Runner/Model: [employer] (S/N [id number]) CLINICAL INFORMATION: Current height: 60 inches Maximum height: 61 inches Weight: 180 pounds Risk factors: None COMPARISON: None available. FINDINGS: AP LUMBAR SPINE L1-L4: Total BMD is 0.897 g/cm2 T-score is -2.4 LEFT HIP: Total BMD is 0.871 g/cm2 T-score is -1.1 Femoral neck BMD is 0.777 g/cm2 T-score is -1.9 FRAX: 10 year risk for a major osteoporotic fracture is 11.1 %, 10 year risk for a hip fracture is 2.2 % THIS IS AN ELECTRONICALLY VERIFIED FINAL REPORT 02/25/2022 8:34 AM - Electronically signed by Thania Naylor M.D. TW: Report ID: [id number] Reading Location: [place] [address] IMPRESSION: Low bone mass REFERENCE: Bone mineral density: Normal (T-score above or = -1.0) Low bone mass (T-score between -1.0 and -2.5) replaces the previously used term osteopenia Osteoporosis (T-score = or below -2.5) Medical evaluation for secondary causes of low bone mineral density may be appropriate. FRAX is a World Health Organization validated fracture risk assessment tool that calculates a person's 10 year probability of a major osteoporosis related fracture and hip fracture. According to the National Osteoporosis Foundation guidelines, postmenopausal women and men age 50 or older with low bone mass and a 10 year probability of a major osteoporosis related fracture = or greater than 20% or a 10 year probability of a hip fracture = or greater than 3% should be considered for treatment. For further information, including treatment recommendations, please refer to the 2013 ISCD Official Positions (http://www.iscd.org) and the NOF's Clinician's Guide to Prevention and Treatment of Osteoporosis (http://www.nof.org/professionals/clinical-guidelines) us Bernard Nunez MD IMG DEXA ORDERABLES Final R esult * HM COLONOSCOPY (05/19/2011) us Cb Grant DO PROCEDURE/MINOR SURGICAL ORDERA BLES Final Result from Last 3 Months or Most Recently Relevant to Health Maintenance Insurance [employer]ICARE [employer] 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 Advance Care Planning Discussion 10/31/2020 9:53 AM Advance Care Plancourtn maritza POL/POST/NH DNR 10/31/2020 9:52 AM DNR Power of Administration Professional for Health Care 10/31/2020 9:51 AM POA for Healthcare Care Teams Bread Supervisor Relationship Specialty Start Date End Date Beranrd Nunez MD [address] [place] [place] [address] PCP - General Internal Medicine 06/27/15 Trini Shoemaker APRN, GRAPHICS EDIT TECHNICIAN [address] [place] [address] Nurse Practitioner Advanced Practice Nurse 12/10/22 Matt Paul MD [address] [place] [address] Consulting Physician Gastroenterology 01/23/22
[2024-06-29 15:21] VITALS: BP 169/60; PULSE 60; RESP 18; O2SAT 99
[2024-06-29] MEDS: MAG HYDROX/AL HYDROX/SIMETH 30 ML UDC PO (15:24)
[2024-06-29] MEDS: FAMOTIDINE 20 MG TABLET PO (15:25)
[2024-06-29 16:27] VITALS: BP 147/56; PULSE 56; RESP 16; O2SAT 100
--- OUTSIDE RECORDS SUMMARY | 2024-06-29 16:30 | XMS_ITS | Encounter Summary ---
Author Organization [facility] Address [address] [place] [address] Phone Care Team Providers Care Engineering Manager Name Role Phone Bernard Nunez MD Primary Care Provider [phone] Teresa Santana RN Unavailable Unavailable [facility] langford APRN, STATIC BALANCER Unavailable Matt Paul MD Unavailable [phone] Reason for Visit * Reason Onset Date Comments Medication Refill 05/31/2020 Encounter Details Date Type Department Care Team (Late st Contact Info) Description 05/31/2020 Refill [facility] [place] [address] [place] [address] Angela Cary, PAC [address] [place] [address] Medication Refill Social History Tobacco Use Types [...] [facility] - [place] [address] [place] [phone] Bernard Nunez MD [address] [place] [address] documented as of this encounter Visit Diagnoses Not on filedocumented in this encounter Additional Health Concerns Infection Onset Date Last Indicated Resolved Time Respiratory Rule-Out 05/27/2023 05/27/2023 024 3:03 PM CDT COVID - 19 05/27/2023 05/27/2023 05/27/2023 3:03 PM CDT Assessment Noted Time PHQ-9 Depression Total Score: 0 04/12/19 21 9:00 AM SITE INSPECTOR documented as of this encounter Care Teams Engineering Manager Relationship Specialty Start Date End Date Bernard Nunez MD [address] [place] [address] PCP - General Internal Medicine 06/27/15 Teresa Santana, SMITH [place] Nurse Director Of Student Financial Services 04/15/23 04/15/24 Trini Shoemaker APRN, STATIC BALANCER [address] [place] [address] Nurse Practitioner Advanced Practice Nurse 12/10/22 Matt Paul MD [address] [place] [address] Consulting Physician Gastroenterology 01/23/22 documented as of this encounter
--- OUTSIDE RECORDS SUMMARY | 2024-06-29 16:30 | XMS_ITS | Encounter Summary ---
Author Organization [facility] Address [address] [facility] [place] [address] Care Team Providers Care Molder Bench Name Role Phone Emery Nunez MD Primary Care Provider [phone] Encounter Details Date Type Department Care Team (Late st Contact Info) Description 01/14/2023 Lab Requisition [facility] - DermPath Lab [address] [facility] [address] [facility] [address] [place] [phone] Paty Rowe DO [address] [address] [place] [address] Social History Tobacco Use Types Packs/Day Years Used Date Smoking Tobacco: Never Assessed Comments Unknown Sex and Gender Information Value Date Recorded Sex Assigned at Not on file Legal Sex Female 5:48 PM 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 Gender Identity Not on file Sexual Orientation Not on file documented as of this encounter Plan of Treatment Not on file documented as of this encounter Procedures Procedure Name Priority Date/Time Associated Diagnosis Comments DERMATOPATHOLOGY Routine 01/14/2023 9:31 AM CDT documented in this encounter Results * DERMATOPATHOLOGY (01/14/2023 9:31 AM CDT) Case Report Dermatopathology Report Case: [id number] Authorizing Provider: Paty Rowe DO Collected: 01/14/2023 09:31 AM Ordering Location: [facility] DermPath Lab Received: 01/14/2023 03:24 PM [...] of a non-oriented ellipse of skin measuring [id number] mm.The margin is inked green. The 12 [...] characteristic determined by the Dermatopathology Laboratory at [facility], directed by Dr. Ronnie Waterman. These tests need not be, and therefore are not, approved by the [place] Food and Drug Administration. The tests are used for clinical purposes. Billing Codes Specimen Charges Stain Charges 77823 1 2:29 PM CDT DERMATOPATHOLOGY LABORATORY Embedded Images 2:29 PM CDT DERMATOPATHOLOGY LABORATORY Pathology/Cytolo gy TISSUE SPECIMEN FROM SKIN / Unknown 01/14/2023 9:31 AM CDT 01/14/2023 3:24 PM CDT us Paty Rowe DO LAB - PATHOLOGY/CYTOLOGY ORDERABLES Final Result DERMATOPATHOLOGY LABORATORY [facility] - Department of Dermatology [facility] Medicine [address] [place] [address], [address] [phone] documented in this encounter Visit Diagnoses Not on filedocumented in this encounter Care Teams Molder Bench Relationship Specialty Start Date End Date Emery Nunez MD [address] [place], [place] [id number] PCP - General 02/01/19 documented as of this encounter
--- OUTSIDE RECORDS SUMMARY | 2024-06-29 16:30 | XMS_ITS | Encounter Summary ---
Author Organization [facility] Address [address] [place] [address] Phone Care Team Providers Care Metal Off Bearer Name Role Phone Bernard Nunez MD Primary Care Provider [phone] Zaire Alba MD Unavailable [phone] Fran Angel MD Unavailable [phone] Encounter Details Date Type Department Care Team (Late st Contact Info) Description 06/06/2024 Telephone [facility] Cardiology [address] [facility] Advanced Medicine 8th [place] [address] [place] [address] Jose Escoto MD [address] [place], [place] [id number] Social History Tobacco Use Types Packs/Day Years [...] on file Legal Sex Female 2:02 PM EYEGLASS MAKER Gender Identity Not on file Sexual Orientation Not on file documented as of this encounter Miscellaneous Notes * Telephone Encounter - Rosa Wei - 06/06/2024 12:19 PM CDT LMOR @ [phone] for pt to c/b to reschedule her 06/06/24 appt (cancelled the 06/06/24 appt). Tried to call pt at [phone] but it was a wrong number. Took [...] on filedocumented in this encounter Care Teams Metal Off Bearer Relationship Specialty Start Date End Date Bernard Nunez MD [address] [place] [address] PCP - General 01/06/17 Zaire Alba MD [address] [place] [address] [place] [address] Surgeon Orthopedic Surgery 03/20/22 Fran Angel MD [address] [place] [address] Referring Physician Ophthalmology 04/07/22 documented as of this encounter
--- OUTSIDE RECORDS SUMMARY | 2024-06-29 16:30 | XMS_ITS | Encounter Summary ---
Author Organization [facility] Address [address] [facility] [address] Phone Care Team Providers Care Transportation Security Officer Name Role Phone Bernard Nunez MD Primary Care Provider [phone] Trini Shoemaker APRN, ARCHIVIST [employer]PROFIT FOUNDATION Unavailable Matt Paul MD Unavailable [phone] Encounter Details Date Type Department Care Team (Late st Contact Info) Description 06/29/2024 Telephone [facility] [address] [place] [address] Bernard Nunez MD [address] [place] [address] Social History Tobacco Use Types Packs/Day Years Used Date Smoking Tobacco: Former Cigarettes 1 12 14 965 - 1984 Passive Smoke Exposure: Past Smokeless Tobacco: Never Alcohol Use Standard Drinks/Week Comments Never 0 (1 standard drink = 0.6 oz pur e alcohol) [facility] Utilities Answer Date Recorded In the past [...] How often do you attend chur or jewish services? More than 4 times per year 01/11/2024 Do you belong to any clubs o r organizations such as zoroastrian groups, unions, fraternal or athletic groups, or [...] Total Score - Questions 1-9 0 03/17 [facility] - Occupational Stress Questionnaire Answer Date Recorded [...] place to sleep or slept in a longterm (including now)? No 06/30/2023 Housing Stability Vital [...] any time in the [facility], were you homeless or living in a longterm (including now)? No 01/11/2024 Sexually Active Control [...] to go to the ER. Phone - [phone] documented in this encounter Plan of Treatment Upcoming Encounters Date Type Department Care Team (Late st Contact Info) Description 07/12/2024 10:15 AM CDT Office Visit [facility] - Internal Medicine - [place] [address] [place] [address] Bernard Nunez MD [address] [place] [address] documented as of this encounter Goals Goal Patient Goal Type Associated Problems Recent Progress Patient-Stated? Author Behavioral Health Behavioral Health On track( 024 9:58 AM CDT) Yes Angel Trujillo, WATER PURIFIER OPERATOR Note: I want to get through this grief. Goal/Objective: Increase coping skills. Anticipated Time Frame for Goal Completion: 6 months Goal Reviewed with: patient Readiness to change: Ready to change Department associated with goal: [facility] Steps to achieve [...] Total Score: 0 04/12/19 25 10:21 AM SILK SCREEN PRINTING RACKER documented as of this encounter Care Teams Transportation Security Officer Relationship Specialty Start Date End Date Bernard Nunez MD [address] [place] [address] PCP - General Internal Medicine 06/27/15 Trini Shoemaker APRN, ARCHIVIST [employer] FOUNDATION [address] [place] [address] Nurse Practitioner Advanced Practice Nurse 12/10/22 Matt Paul MD [address] [place] [address] Consulting Physician Gastroenterology 01/23/22 documented as of this encounter
--- OUTSIDE RECORDS SUMMARY | 2024-06-29 16:30 | XMS_ITS | Encounter Summary ---
Author Organization [facility] Address [address] [facility] [place] [address] Care Team Providers Care Composition Floor Layer Name Role Phone Emery Nunez MD Primary Care Provider Encounter Details Date Type Department Care Team (Late st Contact Info) Description 06/11/2023 Lab Requisition [facility] - DermPath Lab [address] [facility], [place] [address] Paty Rowe DO [address] [facility] 3 [place] [address] Social History Tobacco Use Types Packs/Day Years Used Date Smoking Tobacco: Never Assessed Comments Unknown Sex and Gender Information Value Date Recorded Sex Assigned at Not on file 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 - Received: 06/12/2023 01:46 PM DermPath Lab [...] characteristic determined by the Dermatopathology Laboratory at [facility], directed by Dr. Ronnie Waterman. These tests need not be, and therefore are not, approved by the [place] Food and Drug Administration. The tests are used for clinical purposes. Billing Codes Specimen Charges Stain Charges [id number] 1 12:21 PM CDT DERMATOPATHOLOGY LABORATORY Embedded Images 12:21 PM CDT DERMATOPATHOLOGY LABORATORY Pathology/Cytolo gy TISSUE SPECIMEN FROM SKIN / Unknown 06/11/2023 2:05 PM CDT 06/12/2023 1:46 PM CDT us Paty Rowe DO LAB - PATHOLOGY/CYTOLOGY ORDERABLES Final Result DERMATOPATHOLOGY LABORATORY [facility] - Department of Dermatology [address], [address] Floor [address] [phone] documented in this encounter Visit Diagnoses Not on filedocumented in this encounter Care Teams Composition Floor Layer Relationship Specialty Start Date End Date Emery Nunez MD [address] [id number] PCP - General 02/01/19 documented as of this encounter
--- OUTSIDE RECORDS SUMMARY | 2024-06-29 16:30 | XMS_ITS ---
Author Organization [facility] Address [address] [place] [address] Care Team Providers Care Gemologist Name Role Phone Bernard Nunez MD Primary Care Provider [phone] Zaire Alba MD Unavailable Fran Angel MD Unavailable [phone] Active Problems Problem Noted Date Diagnosed Date Malignant neoplasm metastatic to bone 12/29/2023 Malignant neoplasm of overla pping sites of left breast in female, estrogen receptor positive 10/15/2023 Aftercare following left knee joint replacement surgery 07/17/2022 Primary osteoarthritis of right knee 03/04/2022 Overview (03/04/2022): Added automatically from request for surgery [id number] Basal cell carcinoma (BCC) of left lower eyelid 01/06/2022 Lesion of left lower eyelid 11/07/2021 Overview (11/07/2021): Added automatically from request for surgery [id number] Current Treatment and Therapy Plans [id number] - [facility] - Breast - [id number] - Aromatase Inhibitor [...] (06/23/2022): Added automatically from request for surgery [id number]
--- OUTSIDE RECORDS SUMMARY | 2024-06-29 16:30 | XMS_ITS | Encounter Summary ---
Author Organization [facility] Address [address] [place] [address] Care Team Providers Care Nurse Charge Rn Name Role Phone Emery Nunez MD Primary Care Provider [phone] Encounter Details Date Type Department Care Team (Late st Contact Info) Description 06/23/2024 Lab Requisition [facility] - DermPath Lab [address] [facility], [place] [address] Paty Rowe DO [address] [facility] 3 [place] [address] Social History Tobacco Use Types Packs/Day Years Used Date Smoking Tobacco: Never Assessed Comments Unknown Sex and Gender Information Value Date Recorded Sex Assigned at Not on file 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 Gender Identity Not on file Sexual Orientation Not on file documented as of this encounter Plan of Treatment Not on file documented as of this encounter Procedures Procedure Name Priority Date/Time Associated Diagnosis Comments DERMATOPATHOLOGY Routine 06/23/2024 2:38 PM CDT documented in this encounter Results * DERMATOPATHOLOGY (06/23/2024 2:38 PM CDT) Case Report Dermatopathology Report Case: [id number] Authorizing Provider: Paty Rowe DO Collected: 06/23/2024 02:38 PM Ordering Location: [facility] - Received: 06/24/2024 04:45 [...] characteristic determined by the Dermatopathology Laboratory at [facility], directed by Dr. Ronnie Waterman. These tests need not be, and therefore are not, approved by the [place] Food and Drug Administration. The tests are used for clinical purposes. Billing Codes Specimen Charges Stain Charges [id number] 1 1:41 PM CDT DERMATOPATHOLOGY LABORATORY Embedded Images 1:41 PM CDT DERMATOPATHOLOGY LABORATORY Pathology/Cytolo gy TISSUE SPECIMEN FROM SKIN / Unknown 06/23/2024 2:38 PM CDT 06/24/2024 4:45 PM CDT us Paty Rowe DO LAB - PATHOLOGY/CYTOLOGY ORDERABLES Final Result DERMATOPATHOLOGY LABORATORY [facility] - Department of Dermatology [address], [address] Floor [address] [phone] documented in this encounter Visit Diagnoses Not on filedocumented in this encounter Care Teams Nurse Charge Rn Relationship Specialty Start Date End Date Emery Nunez MD [address] [id number] PCP - General 02/01/19 documented as of this encounter
--- OUTSIDE RECORDS SUMMARY | 2024-06-29 16:30 | XMS_ITS | Clinical Summary ---
Author Organization [facility] Address [address] [place] [address] Care Team Providers Care Ranch Helper Name Role Phone Emery Nunez MD Primary Care Provider [phone] Source Comments [facility],non-owned Affiliates and Associated Physician Practices is amultiple site organization consisting of ambulatory clinics and hospital sitesin [place], [place], [place] and [place]. This disclosure is being madepursuant to the Care Everywhere program and may not contain all information available regarding this patient. 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 Ronnie Waterman. These tests need not be, and therefore are not, approved by the [place] Food and Drug Administration. The tests are used for clinical purposes. Billing Codes Specimen Charges Stain Charges [id number] 1 1:41 PM CDT DERMATOPATHOLOGY LABORATORY Embedded Images 1:41 PM CDT DERMATOPATHOLOGY LABORATORY Pathology/Cytolo gy TISSUE SPECIMEN FROM SKIN / Unknown 06/23/2024 2:38 PM CDT 06/24/2024 4:45 PM CDT us Paty Rowe DO LAB - PATHOLOGY/CYTOLOGY ORDERABLES Final Result DERMATOPATHOLOGY LABORATORY [facility] - Department of Dermatology [facility] Special[facility] [address] [place] [address], [address]rd [place] [address], [facility] [phone] from Last 3 Months Insurance MEDICARE [employer] MEDICARE MEDICARE SUPPLEMENT PAYOR GENERIC Care Teams Ranch Helper Relationship Specialty Start Date End Date Emery Nunez MD [facility] [address] [phone] PCP - General 02/01/19
--- OUTSIDE RECORDS SUMMARY | 2024-06-29 16:30 | XMS_ITS | Encounter Summary ---
Author Organization [facility] Address [address] [place] [address] Phone Care Team Providers Care Heel Edge Inker Machine Name Role Phone Bernard Nunez MD Primary Care Provider [phone] Teresa Santana RN Unavailable Unavailable [facility] APRN, HOME HEALTH CARE CASE MANAGER Unavailable Matt Paul MD Unavailable [phone] Reason for Visit * Reason Onset Date Comments Medication Refill 05/31/2020 Encounter Details Date Type Department Care Team (Late st Contact Info) Description 05/31/2020 Refill [facility] [address] [place] [address] Angela Cary, PAC [address] [place] [address] Medication Refill Social History Tobacco Use Types [...] physician/ROCIO review. Refill encounter routed to nurse DeRev's pool for processing. documented in this encounter Plan of Treatment Upcoming Encounters Date Type Department Care Team (Late st Contact Info) Description 07/12/2024 10:15 AM CDT Office Visit [facility] - Internal Medicine - [place] [address] [place] [address] Bernard Nunez MD [address] [place] [address] documented as of this encounter Visit Diagnoses Not on filedocumented in this encounter Additional Health Concerns Infection Onset Date Last Indicated Resolved Time Respiratory Rule-Out 05/27/2023 05/27/2023 024 3:03 PM CDT COVID - 19 05/27/2023 05/27/2023 05/27/2023 3:03 PM CDT Assessment Noted Time PHQ-9 Depression Total Score: 0 04/12/19 21 9:00 AM TANKERMAN documented as of this encounter Care Teams Heel Edge Inker Machine Relationship Specialty Start Date End Date Bernard Nunez MD [address] [place] [address] PCP - General Internal Medicine 06/27/15 Teresa Santana, RN [place] Nurse Research Subject 04/15/23 04/15/24 Trini Shoemaker APRN, HOME HEALTH CARE CASE MANAGER [address] [place] [address] Nurse Practitioner Advanced Practice Nurse 12/10/22 Matt Paul MD [address] [place] [address] Consulting Physician Gastroenterology 01/23/22 documented as of this encounter
--- OUTSIDE RECORDS SUMMARY | 2024-06-29 16:30 | XMS_ITS | Encounter Summary ---
Author Organization [facility] Address [address] [place] [address] Phone Care Team Providers Care Volunteer Firefighter Name Role Phone Bernard Nunez MD Primary Care Provider [phone] Teresa Santana RN Unavailable Unavailable [facility] APR[facility], HAND NAILER Unavailable Matt Paul MD Unavailable [phone] Reason for Visit * Reason Comments Medication Refill Encounter Details Date Type Department Care Team (Late st Contact Info) Description 06/01/2023 Refill [facility] - Internal Medicine - [place] [address] [place] [address] Bernard Nunez MD [address] [facility] [facility] [place] [address] Medication Refill Social History Tobacco Use Types Packs/Day Years Used Date Smoking Tobacco: Former Cigarettes 1 - 1984 Passive Smoke Exposure: Past Smokeless Tobacco: Never Alcohol Use Standard Drinks/Week Comments Never 0 (1 standard drink = 0.6 oz pur e alcohol) [facility] Utilities Answer Date Recorded In the past 12 months has Sho[employer] electric, gas, oil, or water company threatened [...] often do you attend chur ch or jehovah's witness services? 1 to 4 times per year 04/15/2023 Do you belong to any clubs o r organizations such as yarsani groups, unions, fraternal or athletic groups, or [...] Total Score - Questions 1-9 9 04/16 [facility] - Occupational Stress Questionnaire Answer [...] place to sleep or slept in a jail (including now)? No 04/15/2023 Sexually Active Control [...] Description 07/12/2024 10:15 AM CDT Office Visit [facility] - Internal Medicine [place] [address] [place] [address] Bernard Nunez MD [address] [place] [address] documented as of this encounter Goals Goal Patient Goal Type Associated Problems Recent Progress Patient-Stated? Author Behavioral Health Behavioral Health On track( 024 9:58 AM CDT) Yes Angel Trujillo, UNEMPLOYMENT INSURANCE DIRECTOR Note: I want to get through this grief. Goal/Objective: Increase coping skills. Anticipated Time Frame for Goal Completion: 6 months Goal Reviewed with: patient Readiness to change: Ready to change Department associated with goal: [facility] Steps to achieve [...] Total Score: 9 04/29/19 24 10:00 AM EMPLOYMENT APPEALS EXAMINER documented as of this encounter Care Teams Volunteer Firefighter Relationship Specialty Start Date End Date Bernard Nunez MD [address] [place] [address] PCP - General Internal Medicine 06/27/15 Teresa Santana RN [place] Nurse Hydraulic Barker Operator 04/15/23 04/15/24 Trini Shoemaker APRN, HAND NAILER [address] [place] [address] Nurse Practitioner Advanced Practice Nurse 12/10/22 Matt Paul MD [address] [place] [address] Consulting Physician Gastroenterology 01/23/22 documented as of this encounter
--- OUTSIDE RECORDS SUMMARY | 2024-06-29 16:30 | XMS_ITS | Encounter Summary ---
Author Organization [facility] Address [address] [facility] [address] [place] [address] Phone Care Team Providers Care Websphere Message Broker Developer Name Role Phone Bernard Nunez MD Primary Care Provider [phone] Teresa Santana RN Unavailable Unavailable [facility] APR[facility], ELECTRICIAN Unavailable Matt Paul MD Unavailable [phone] Reason for Visit * Reason Comments Medication Refill Encounter Details Date Type Department Care Team (Late st Contact Info) Description 07/16/2021 Refill [facility] - [facility] Medicine - [place] [address] [place] [address] Bernard Nunez MD [address] [facility] [place] [address] Medication Refill Social History Tobacco Use Types [...] Dept 04/26/21 Office Visit Bernard [facility] [place] 01/18/21 Office Visit Bernard Nunez MD [facility] [place] 10/11/20 Office Visit Bernard Nunez MD [facility] 09/28/20 Office Visit Angela Cary PAC [facility] [place] Showing recent visits within past 365 days and meeting all other requirements Future Appointments Date Type Provider Dept 07/29/21 Appointment Bernard Nunez MD [facility] Showing future appointments within next 90 [...] 04/26/21 Office Visit Bernard Nunez MD [facility] [place] 01/18/21 Office Visit Bernard Nunez MD [facility] [place] 10/11/20 Office Visit Bernard Nunez MD [facility] [place] 09/28/20 Office Visit Angela Cary, KAY [facility] [place] Showing recent visits within past 365 days and meeting all other requirements Future Appointments Date Type Provider Dept 07/29/21 Appointment Bernard Nunez MD [facility] [place] Showing future appointments within next 90 days [...] 04/26/21 Office Visit Bernard Nunez MD [facility] [place] 01/18/21 Office Visit Bernard Nunez [facility] [place] Showing recent visits within past 182 days and meeting all other requirements Future Appointments Date Type Provider Dept 07/29/21 Appointment Bernard Nunez MD [facility] [place] Showing future appointments within next 90 days [...] [place] 09/28/20 Office Visit Angela Cary, KAY [facility] [place] Showing recent visits within past 365 days and meeting all other requirements Future Appointments Date Type Provider Dept 07/29/21 Appointment Bernard Nunez MD [facility] [place] Showing future appointments within next 90 days and meeting all other requirements documented in this encounter Plan of Treatment Upcoming Encounters Date Type Department Care Team (Late st Contact Info) Description 07/12/2024 10:15 AM CDT Office Visit [facility] - Internal Medicine [place] [address] [place] [address] Bernard Nunez MD [address] [place] [address] documented as of this encounter Visit Diagnoses Not on filedocumented in this encounter Additional Health Concerns Infection Onset Date Last Indicated Resolved Time Respiratory Rule-Out 05/27/2023 05/27/2023 024 3:03 PM CDT COVID - 19 05/27/2023 05/27/2023 05/27/2023 3:03 PM CDT Assessment Noted Time PHQ-9 Depression Total Score: 0 04/12/19 21 9:00 AM SOFTWARE ENGINEER INTERN documented as of this encounter Care Teams Websphere Message Broker Developer Relationship Specialty Start Date End Date Bernard Nunez MD [address] [place] [address] PCP - General Internal Medicine 06/27/15 Teresa Santana RN [place] Nurse Pulverizer Operator 04/15/23 04/15/24 Trini Shoemaker APRN, ELECTRICIAN [address] [place] [address] Nurse Practitioner Advanced Practice Nurse 12/10/22 Matt Paul MD [address] [place] [address] Consulting Physician Gastroenterology 01/23/22 documented as of this encounter
--- OUTSIDE RECORDS SUMMARY | 2024-06-29 16:30 | XMS_ITS | Encounter Summary ---
Author Organization [facility] Address [address] [facility] [place] [address] Care Team Providers Care Pottery Kiln Builder Name Role Phone Emery Nunez MD Primary Care Provider [phone] Encounter Details Date Type Department Care Team (Late st Contact Info) Description 11/27/2022 Lab Requisition [facility] - DermPath Lab [address] [facility], [place] [address] Paty Rowe DO [address] 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 Gender Identity Not on file Sexual Orientation Not on file documented as of this encounter Plan of Treatment Not on file documented as of this encounter Procedures Procedure Name Priority Date/Time Associated Diagnosis Comments DERMATOPATHOLOGY Routine 11/27/2022 3:21 PM CDT documented in this encounter Results * DERMATOPATHOLOGY (11/27/2022 3:21 PM CDT) Case Report Dermatopathology Report Case: [id number] Authorizing Provider: Paty Rowe DO Collected: 11/27/2022 03:21 PM Ordering Location: [facility] DermPath Lab Received: 11/28/2022 12:28 PM Pathologist: [...] characteristic determined by the Dermatopathology Laboratory at [facility], directed by Dr. Ronnie Waterman. These tests need not be, and therefore are not, approved by the [place] Food and Drug Administration. The tests are used for clinical purposes. Billing Codes Specimen Charges Stain Charges [id number] 1 3 1:08 PM CDT DERMATOPATHOLOGY LABORATORY Embedded Images 3 1:08 PM CDT DERMATOPATHOLOGY LABORATORY Pathology/Cytolo gy TISSUE SPECIMEN FROM SKIN / Unknown 11/27/2022 3:21 PM CDT 11/28/2022 12:28 PM CDT us Paty Rowe DO LAB - PATHOLOGY/CYTOLOGY ORDERABLES Final Result DERMATOPATHOLOGY LABORATORY [facility] - Department of Dermatology [address], [address] [phone] documented in this encounter Visit Diagnoses Not on filedocumented in this encounter Care Teams Pottery Kiln Builder Relationship Specialty Start Date End Date Emery Nunez MD [address] [place] [id number] PCP - General 02/01/19 documented as of this encounter
--- OUTSIDE RECORDS SUMMARY | 2024-06-29 16:30 | XMS_ITS | Referral Summary ---
Author Organization [facility] Address [address] [place] [address] Care Team Providers Care Full Time Staff Interpreter Name Role Phone Bernard Nunez MD Primary Care Provider [phone] Zaire Alba MD Unavailable [phone] Fran Angel MD Unavailable [phone] Encounters Date Type Department Care Team Description 06/21/2024 2:30 PM CDT Lab [facility] - Lab Collection [address] [facility] 6 [place] [address] Malignant neoplasm of overlapping sites of left breast in female, estrogen receptor positive (HCC) 06/21/2024 3:30 PM CDT Office Visit [facility] [address] [place] [address] Floor 8 [place] [id number] Lucille Singh MD Malignant neoplasm of overlapping sites of left breast in female, estrogen receptor positive (HCC) (Primary Dx) 06/06/2024 4:15 PM CDT Office Visit [facility] 8th [place] [address] [place] [address] Jose Escoto MD Essential hypertension (Primary Dx); Palpitations 06/06/2024 Telephone [facility] [address] [facility] 8th [place] [address] [place] [address] Jose Escoto MD 05/24/2024 Orders Only [facility] [address] [facility] Floor 8 [place] [address] Shani Parekh RN 05/24/2024 Orders Only [facility] [address] [place] [address] Floor 8 [place] [address] Shani Parekh RN Malignant neoplasm of overlapping sites of left breast in female, estrogen receptor positive (HCC) (Primary Dx) 05/24/2024 2:00 PM CDT Office Visit [facility] Floor 8 [place] [address] Lucille Singh MD Malignant neoplasm of overlapping sites of left breast in female, estrogen receptor positive (HCC) (Primary Dx) 05/24/2024 3:15 PM CDT Research Med Pick-Up/CTRU Plant Custodian [facility] - Infusion [address] Floor 6 [place] [address] Malignant neoplasm of overlapping sites of left breast in female, estrogen receptor positive (HCC) (Primary Dx) 05/24/2024 1:00 PM CDT Clinical Support [facility] - Lab Collection [address] [facility] Floor 5 [place] [address] Malignant neoplasm of overlapping sites of left breast in female, estrogen receptor positive (HCC) 05/24/2024 10:33 AM CDT - 05/24/2024 11:59 PM CDT Hospital Encounter [facility] - PET [address] Floor 8 [place] [address] Discharge Disposition: Discharge to home or self care 05/24/2024 10:30 AM CDT - 05/24/2024 11:59 PM CDT Hospital Encounter [facility] - PET [address] Floor 8 [place] [address] Malignant neoplasm of overlapping sites of left breast in female, estrogen receptor positive (HCC) Discharge Disposition: Discharge to home or self care 04/26/2024 Orders Only [facility] Floor 8 [place] [address] Shani Parekh RN 04/26/2024 3:00 PM DIRECTOR OF CONTENT MARKETING Infusion [facility] - Infusion [address] [facility] Floor 5 [place] [address] Malignant neoplasm metastatic to bone (HCC) (Primary Dx); Malignant neoplasm of overlapping sites of left breast in female, estrogen receptor positive (HCC) 04/26/2024 1:00 PM DIRECTOR OF CONTENT MARKETING Clinical Support [facility] - Lab Collection [address] [facility] Floor 5 [place] [address] Malignant neoplasm of overlapping sites of left breast in female, estrogen receptor positive (HCC) 04/26/2024 2:00 PM DIRECTOR OF CONTENT MARKETING Office Visit [facility] [address] [facility] Floor 8 [place] [address] Lucille Singh MD Malignant neoplasm [...] mcg total) by mouth daily 5 Active [facility] Abemaciclib (/TB CRC-060) 50 mg tablet Take 2 tablets (100 mg total) by mouth 2 (two) times a day Take at about the same times each day with or without food. Missed or vomited doses may not be made up. Avoid grapefruit juice/products, pomelos, [place] oranges, Callahan's Wort. Active calcium carbonate-vitam in D3 1,250mg [...] 1 3 025 Discontin ued(Alter carter therapy) [facility] Abemaciclib (/TB CRC-060) 50 mg tablet Take 3 tablets (150 mg total) by mouth 2 (two) times a day Take at about the same times each day with or without food. Missed or vomited doses may not be made up. Avoid grapefruit juice/products, pomelos, [place] oranges, Callahan's Wort. 025 Discontin ued(Alter carter therapy) letrozole [...] (03/04/2022): Added automatically from request for surgery [id number] Basal cell carcinoma (BCC) of left lower eyelid 01/06/2022 Lesion of left lower eyelid 11/07/2021 Overview (11/07/2021): Added automatically from request for surgery [id number] Resolved Problems Problem Noted Date Diagnosed Date Resolved Date Primary osteoarthritis of left knee 06/23/2022 07/17/2022 Overview (06/23/2022): Added automatically from request for surgery [id number] Social History Tobacco Use Types Packs/Day Years [...] on file Legal Sex Female 2:02 PM DIRECTOR OF CONTENT MARKETING Gender Identity Not on file Sexual Orientation [...] on file Medical Devices Implanted Type Area Explosives Mixer Operator Device Identifier Shelf Expiration Date Model / Serial / Lot Aundrea Craniomaxillofa cial Impl Soft Tissue [id number] Moist Tough Flex Sheet Enduragen 03535 - S0 - [id number] Implanted:Qty: 1 on 01/06/2022 by Bhanu Buchanan MD at [facility] Other - see comments Left: Eyelid [employer] Craniomaxillofacia l 04/15/2026 [id number] / 0 / [employer] Cement Bone Simplex Gentamicin High Viscosity 40 6195-1-001 - [id number] Implanted:Qty: 1 on 03/19/2022 by Zaire Alba MD at [facility] Right: Knee [employer] 06/14/2023 6195-1-001 / / [id number] [employer] Cement Bone Simplex Gentamicin High Viscosity 40 6195-1-001 - [id number] Implanted:Qty: 1 on 03/19/2022 by Zaire Alba MD at [facility] Right: Knee [employer] 06/14/2023 6195-1-001 / / [id number] [employer] Attune 32mm Cemented Medialize Knee Dome Patellar Aox Sterile [id number] - [id number] Implanted:Qty: 1 on 03/19/2022 by Zaire Alba MD at [facility] Right: Knee [employer] 03/15/2026 [id number] / / [id number] [employer] Attune Cemented Posterior Stabilize Knee Right 4 Narrow Component [id number] - [id number] Implanted:Qty: 1 on 03/19/2022 by Zaire Alba MD at [facility] Right: Knee [employer] 10/14/2031 [id number] / / [id number] [employer] Attune S+ Cement Fix Bearing Knee 3 Baseplate Tibial [id number] - [id number] Implanted:Qty: 1 on 03/19/2022 by Zaire Alba MD at [facility] Right: Knee [employer] 01/14/2032 [id number] / / [id number] [employer] Attune 8mm Posterior Stabilize Fix Bearing Knee 4 Insert Tibial 253724144 - [id number] Implanted:Qty: 1 on 03/19/2022 by Zaire Alba MD at [facility] Right: Knee [employer] 11/12/2026 [id number] / / [id number] [employer] Attune 32mm Cemented Medialize Knee Dome Patellar Aox Sterile [id number] - [id number] Implanted:Qty: 1 on 07/09/2022 by Zaire Alba MD at [facility] Left: Knee [employer] 04/15/2027 [id number] / / [id number] [employer] Attune Cemented Posterior Stabilize Knee Left 4 Narrow Component [id number] - [id number] Implanted:Qty: 1 on 07/09/2022 by Zaire Alba MD at [facility] Left: Knee [employer] 04/15/2032 [id number] / / [id number] [employer] Attune S+ Cement Fix Bearing Knee 3 Baseplate Tibial [id number] - [id number] Implanted:Qty: 1 on 07/09/2022 by Zaire Alba MD at [facility] Left: Knee [employer] 04/15/2032 [id number] / / [id number] [employer] Attune 6mm Posterior Stabilize Fix Bearing Knee 4 Insert Tibial [id number] - [id number] Implanted:Qty: 1 on 07/09/2022 by Zaire Alba MD at [facility] Left: Knee [employer] 03/15/2027 [id number] / / [id number] [employer] Cement Bone Simplex Gentamicin High Viscosity 40 6195-1-001 - [id number] Implanted:Qty: 1 on 07/09/2022 by Zaire Alba MD at [facility] Left: Knee [employer] 11/14/2023 6195-1-001 / / [id number] [employer] Cement Bone Simplex Gentamicin High Viscosity 40 6195-1-001 - [id number] Implanted:Qty: 1 on 07/09/2022 by Zaire Alba MD at [facility] Left: Knee [employer] 11/14/2023 6195-1-001 / / [id number] [employer] Ultraclip Bard 17ga 10cm 2 Trigger Permanent Ultrasound [id number] - [id number] Implanted:Qty: 1 on 10/08/2023 at [facility] Left: Breast [employer] [id number] / / [employer] Marker Image Hydromark Plus T5 Titanium 15ga Radiological Implant Sterile 0664-91-47-T5 - [id number] Implanted:Qty: 1 on 10/08/2023 at [facility] Left: Axilla [employer] [id number] 4009-04-30 -T5 / / [id number] [employer] Marker Tissue Rigid Needle Open Coil Radiopaque Clip Hydromark 18ga Titanium Hydrogel 7818-78-92-T3 - [id number] Implanted:Qty: 1 on 10/08/2023 at [facility] Left: Axilla [employer] [id number] 4009-05-03 -T3 / / [id number] Procedures Procedure Name Priority Date/Time Associated Diagnosis [...] positive (HCC) EGFR STAT 04/26/2024 12:50 PM DIRECTOR OF CONTENT MARKETING Malignant neoplasm of overlapping sites of left breast in female, estrogen receptor positive (HCC) DIFFERENTIAL AUTO STAT 04/26/2024 12: 50 PM DIRECTOR OF CONTENT MARKETING Malignant neoplasm of overlapping sites of left breast in female, estrogen receptor positive (HCC) CBC WITH AUTO DIFFERENTIAL STAT 04/26/2024 12:50 PM DIRECTOR OF CONTENT MARKETING Malignant neoplasm of overlapping sites of left breast in female, estrogen receptor positive (HCC) COMPREHENSIVE METABOLIC PANEL STAT 04/26/2024 12:50 PM DIRECTOR OF CONTENT MARKETING Malignant neoplasm of overlapping sites of left [...] Singh MD LAB BLOOD ORDERABLES Final Result [facility] Department [place] [address] * (ABNORMAL) Differential, auto (06/21/2024 2:53 PM CDT) Neutrophil abs 2.23 1.50 - 6.50 K/cumm Comment:Testing performed by : [facility], [address] [place], [place] [id number] Lymphocyte abs 0.52(L) 0.80 - 3.30 K/cumm [facility] Comment:Testing performed by : [facility], [address] [place] [address] Monocyte abs 0.32 0.20 - 0.80 K/cumm [facility] Comment:Testing performed by : [facility], [address] [place] [address] Eosinophil abs 0.09 0.00 - 0.50 K/cumm [facility] Comment:Testing performed by : [facility], [address] [place], [place] [id number] Basophil abs 0.05 0.00 - 0.10 K/cumm [facility] Comment:Testing performed by : [facility], [address] [place] [address] Neutrophil pct 69.4 % [facility] Comment: Interpretive Data Percent cell count reference ranges are not reported, since discordance with absolute values may lead to misinterpretation of CBC data. Current Interpretive Data was last revised on 2017. Testing performed by: [facility], [address] [place], [place] [phone] Lymphocyte pct 16.2 % [facility] Comment: Interpretive Data Percent cell count reference ranges are not reported, since discordance with absolute values may lead to misinterpretation of CBC data. Current Interpretive Data was last revised on 2017. Testing performed by: [facility], [address] [place] [phone] Monocyte pct 10.0 % [facility] Comment: Interpretive Data Percent cell count reference ranges are not reported, since discordance with absolute values may lead to misinterpretation of CBC data. Current Interpretive Data was last revised on 2017. Testing performed by: [facility], [address] [place] [phone] Eosinophil pct 2.9 % [facility] Comment: Interpretive Data Percent cell count reference ranges are not reported, since discordance with absolute values may lead to misinterpretation of CBC data. Current Interpretive Data was last revised on 2017. Testing performed by: [facility], [address] [place] [phone] Basophil pct 1.5 % [facility] Comment: Interpretive Data Percent cell count reference ranges are not reported, since discordance with absolute values may lead to misinterpretation of CBC data. Current Interpretive Data was last revised on 2017. Testing performed by: [facility], [address] [place] [phone] Blood 06/21/2024 2:53 PM CDT 06/21/2024 3:16 PM CDT Lucille Singh MD LAB BLOOD ORDERABLES Final Result [facility] Department [place] [address] * (ABNORMAL) CBC with auto differential (06/21/2024 2:53 PM CDT) WBC 3.21(L) 3.80 - 9.90 K/cumm Comment:Testing performed by : [facility], [address] [place] [phone] Hgb 11.5(L) 11.9 - 15.5 g/dL [facility] Comment:Testing performed by : [facility], [address] [place], [place] [phone] Hct 33.2(L) 35.6 - 45.5 % [facility] Comment:Testing performed by : [facility], [address] [place], [place] [phone] Plt 186 150 - 400 K/cumm [facility] Comment:Testing performed by : [facility], [address] [place], [place] [phone] MPV 7.9 6.8 - 10.4 fL [facility] Comment:Testing performed by : [facility], [address] [place], [place] [phone] RBC 3.17(L) 3.90 - 5.20 M/cumm [facility] Comment:Testing performed by : [facility], [address] [place], [place] [phone] MCV 104.8(H) 81.3 - 96.4 fL [facility] Comment:Testing performed by : [facility], [address] [place], [place] [phone] MCH 36.4(H) 27.1 - 33.3 pg [facility] Comment:Testing performed by : [facility], [address] [place], [place] [phone] MCHC 34.8 32.3 - 35.7 g/dL [facility] Comment:Testing performed by : [facility], [address] [place], [place] [id number] RDW CV 14.7 11.1 - 14.9 % [facility] Comment:Testing performed by : [facility], [address] [place], [place] [phone] NRBC abs 0.00 0.00 - 0.01 K/cumm [facility] Comment:Testing performed by : [facility], [address] [place], [place] [phone] Blood 06/21/2024 2:53 PM CDT 06/21/2024 3:16 PM CDT us Foluso Cathy Maycolwa MD LAB BLOOD ORDERABLES Final Result [facility] One [facility] Department [place] [address] * (ABNORMAL) Comprehensive metabolic panel (06/21/2024 2:53 PM CDT) Sodium 142 135 - 145 mmol/L Potassium, pl 4.6 3.3 - 4.9 mmol/L [facility] Chloride 107 97 - 110 mmol/L [facility] CO2 28 22 - 32 mmol/L [facility] Anion gap 7 2 - 15 mmol/L [facility] BUN 34(H) 6 - 25 mg/dL [facility] Creatinine 0.96 0.60 - 1.10 mg/dL [facility] Glucose 84 70 - 199 mg/dL [facility] Comment: Interpretive Data Fasting glucose >/= [...] 2022. Calcium 10.0 8.5 - 10.3 mg/dL [facility] Bilirubin, total 0.2 0.1 - 1.2 mg/dL [facility] Protein, pl 7.4 6.5 - 8.5 g/dL [facility] Albumin 4.3 3.5 - 5.0 g/dL [facility] Alk phos 44 40 - 130 Units/L [facility] ALT 7 7 - 45 Units/L [facility] AST 21 10 - 45 Units/L [facility] Blood 06/21/2024 2:53 PM CDT 06/21/2024 3:15 PM CDT Lucille Singh MD LAB BLOOD ORDERABLES Final Result [facility] Department [place] [address] * PET/CT FDG Skull to Thigh (05/24/2024 [...] FDG-PET/CT IMAGING DATE OF STUDY: 05/24/2024 SCANNER: [employer] Quadra (SQ1). This is a high-resolution scanner, [...] obtained. The study was interpreted on the XGraph workstation. The mean liver SUV (reported for quality assurance nurse purposes) is 3.2. The total scanned area [...] FDG-PET/CT IMAGING DATE OF STUDY: 05/24/2024 SCANNER: [facility] [employer] (SQ1). This is a high-resolution scanner, which [...] obtained. The study was interpreted on the XGraph workstation. The mean liver SUV (reported for quality assurance nurse purposes) is 3.2. The total scanned area [...] BLOOD ORDERABLES Final Result [facility] Department [place] [address] * (ABNORMAL) Differential, auto (05/24/2024 12:45 PM CDT) Neutrophil abs 2.8 1.5 - 6.5 K/cumm Comment:Testing performed by : [facility], [address] [place] [phone] Lymphocyte abs 0.6(L) 0.8 - 3.3 K/cumm [facility] Comment:Testing performed by : [facility], [address] [place] [phone] Monocyte abs 0.3 0.2 - 0.8 K/cumm [facility] Comment:Testing performed by : [facility], [address] [place], [place] [phone] Eosinophil abs 0.1 0.0 - 0.5 K/cumm [facility] Comment:Testing performed by : [facility], [address] [place] [address] Basophil abs 0.1 0.0 - 0.1 K/cumm [facility] Comment:Testing performed by : [facility], [address] [place] [address] Neutrophil pct 72.0 % [facility] Comment: Interpretive Data Percent cell count reference ranges are not reported, since discordance with absolute values may lead to misinterpretation of CBC data. Current Interpretive Data was last revised on 2017. Testing performed by: [facility], [address] [place] [phone] Lymphocyte pct 14.7 % [facility] Comment: Interpretive Data Percent cell count reference ranges are not reported, since discordance with absolute values may lead to misinterpretation of CBC data. Current Interpretive Data was last revised on 2017. Testing performed by: [facility], [address] [place] [phone] Monocyte pct 8.6 % [facility] Comment: Interpretive Data Percent cell count reference ranges are not reported, since discordance with absolute values may lead to misinterpretation of CBC data. Current Interpretive Data was last revised on 2017. Testing performed by: [facility], [address] [place] [phone] Eosinophil pct 2.5 % [facility] Comment: Interpretive Data Percent cell count reference ranges are not reported, since discordance with absolute values may lead to misinterpretation of CBC data. Current Interpretive Data was last revised on 2017. Testing performed by: [facility], [address] [place] [phone] Basophil pct 2.2 % [facility] Comment: Interpretive Data Percent cell count reference ranges are not reported, since discordance with absolute values may lead to misinterpretation of CBC data. Current Interpretive Data was last revised on 2017. Testing performed by: [facility], [address] [place] [address] Blood 05/24/2024 12:4 5 PM CDT 05/24/2024 12:48 PM CDT us Lucille Singh MD LAB BLOOD ORDERABLES Final Result [facility] Department [place] [address] * (ABNORMAL) CBC with auto differential (05/24/2024 12:45 PM CDT) WBC 3.9 3.8 - 9.9 K/cumm Comment:Testing performed by : [facility], [address] [place] [address] Hgb 11.6(L) 11.9 - 15.5 g/dL [facility] Comment:Testing performed by : [facility], [address] [place] [address] Hct 33.6(L) 35.6 - 45.5 % [facility] Comment:Testing performed by : [facility], [address] [place] [address] Plt 192 150 - 400 K/cumm [facility] Comment:Testing performed by : [facility], [address] [place] [address] MPV 7.3 6.8 - 10.4 fL [facility] Comment:Testing performed by : [facility], [address] [place] [address] RBC 3.27(L) 3.90 - 5.20 M/cumm [facility] Comment:Testing performed by : [facility], [address] [place] [address] MCV 102.8(H) 81.3 - 96.4 fL [facility] Comment:Testing performed by : [facility], [address] [place], [place] [phone] MCH 35.4(H) 27.1 - 33.3 pg [facility] Comment:Testing performed by : [facility], [address] [place] [address] MCHC 34.4 32.3 - 35.7 g/dL [facility] Comment:Testing performed by : [facility], [address] [place] [address] RDW CV 13.9 11.1 - 14.9 % [facility] Comment:Testing performed by : [facility], [address] [place] [address] NRBC abs 0.00 0.00 - 0.01 K/cumm [facility] Comment:Testing performed by : [facility], [address] [place] [address] Blood 05/24/2024 12:4 5 PM CDT 05/24/2024 12:48 PM CDT Lucille Singh MD LAB BLOOD ORDERABLES Final Result [facility] Department [place] [address] * (ABNORMAL) Cancer antigen 15-3 (05/24/2024 12:45 [...] BLOOD ORDERABLES Final Result Performing Organization Address [facility] de Phone Number [facility] [place] [address] * (ABNORMAL) CEA (05/24/2024 12:45 PM CDT) Pathologist [facility] CEA 5.3(H) <=5.0 ng/mL Comment: Interpretive Data: [...] BLOOD ORDERABLES Final Result Performing Organization Address [facility] [place] [address] * Comprehensive metabolic panel (05/24/2024 12:45 PM CDT) [facility] Sodium 143 135 - 145 mmol/L Potassium, pl 4.6 3.3 - 4.9 mmol/L [facility] Chloride 107 97 - 110 mmol/L [facility] CO2 28 22 - 32 mmol/L [facility] Anion gap 8 2 - 15 mmol/L [facility] BUN 24 6 - 25 mg/dL [facility] Creatinine 0.94 0.60 - 1.10 mg/dL [facility] Glucose 93 70 - 199 mg/dL [facility] Comment: Interpretive Data Fasting glucose >/= [...] Calcium 10.3 8.5 - 10.3 mg/dL [facility] Bilirubin, total 0.3 0.1 - 1.2 mg/dL [facility] Protein, pl 7.6 6.5 - 8.5 g/dL [facility] Albumin 4.3 3.5 - 5.0 g/dL [facility] Alk phos 44 40 - 130 Units/L [facility] ALT 10 7 - 45 Units/L [facility] AST 23 10 - 45 Units/L [facility] Blood 05/24/2024 12:4 5 PM CDT 05/24/2024 12:50 PM CDT us Lucille Singh MD LAB BLOOD ORDERABLES Final Result [facility] [place] [address] * (ABNORMAL) eGFR (04/26/2024 12:50 PM DIRECTOR OF CONTENT MARKETING) eGFR 45(L) >=60 mL/min/1. 73 m2 Comment: [...] reviewed 2021. Blood 04/26/2024 12:5 0 PM DIRECTOR OF CONTENT MARKETING 04/26/2024 12:57 PM DIRECTOR OF CONTENT MARKETING Mckenna Francisco Antolin PANTOGRAPH MACHINE OPERATOR LAB BLOOD ORDERABLES Final Result [facility] [place] [address] * (ABNORMAL) Differential, auto (04/26/2024 12:50 PM DIRECTOR OF CONTENT MARKETING) Neutrophil abs 2.7 1.5 - 6.5 K/cumm Comment:Testing performed by : [facility], [address] [place] [phone] Lymphocyte abs 0.4(L) 0.8 - 3.3 K/cumm CERNER BJ Comment:Testing performed by : [facility], [address] [place] [phone] Monocyte abs 0.3 0.2 - 0.8 K/cumm CERNER BJ Comment:Testing performed by : [facility], [address] [place] [phone] Eosinophil abs 0.1 0.0 - 0.5 K/cumm CERNER BJ Comment:Testing performed by : [facility], [address] [place] [phone] Basophil abs 0.1 0.0 - 0.1 K/cumm CERNER BJ Comment:Testing performed by : [facility], [address] [place] [phone] Neutrophil pct 74.6 % CERNER BJ Comment: Interpretive Data Percent cell count reference ranges are not reported, since discordance with absolute values may lead to misinterpretation of CBC data. Current Interpretive Data was last revised on 2017. Testing performed by: [facility], [address] [place] [phone] Lymphocyte pct 12.5 % CERNER BJ Comment: Interpretive Data Percent cell count reference ranges are not reported, since discordance with absolute values may lead to misinterpretation of CBC data. Current Interpretive Data was last revised on 2017. Testing performed by: [facility], [address] [place] [phone] Monocyte pct 8.9 % CERJEANMARIE EDMONDS Comment: Interpretive Data Percent cell count reference ranges are not reported, since discordance with absolute values may lead to misinterpretation of CBC data. Current Interpretive Data was last revised on 2017. Testing performed by: [facility], [address] [place] [phone] Eosinophil pct 2.6 % CERJEANMARIE EDMONDS Comment: Interpretive Data Percent cell count reference ranges are not reported, since discordance with absolute values may lead to misinterpretation of CBC data. Current Interpretive Data was last revised on 2017. Testing performed by: [facility], [address] [place] [phone] Basophil pct 1.4 % CERJEANMARIE EDMONDS Comment: Interpretive Data Percent cell count reference ranges are not reported, since discordance with absolute values may lead to misinterpretation of CBC data. Current Interpretive Data was last revised on 2017. Testing performed by: [facility], [address] [place] [phone] Blood 04/26/2024 12:5 0 PM DIRECTOR OF CONTENT MARKETING 04/26/2024 12:54 PM DIRECTOR OF CONTENT MARKETING Mckenna Dangelo PANTOGRAPH MACHINE OPERATOR LAB BLOOD ORDERABLES Final Result [facility] Department [place] [address] * (ABNORMAL) CBC with auto differential (04/26/2024 12:50 PM DIRECTOR OF CONTENT MARKETING) WBC 3.6(L) 3.8 - 9.9 K/cumm Comment:Testing performed by : [facility], [address] [place] [address] Hgb 12.8 11.9 - 15.5 g/dL CERNER BJ Comment:Testing performed by : [facility], [address] [place] [address] Hct 37.8 35.6 - 45.5 % CERNER BJ Comment:Testing performed by : [facility], [address] [place], [place] [phone] Plt 203 150 - 400 K/cumm CERNER BJ Comment:Testing performed by : [facility], [address] [place] [address] MPV 7.6 6.8 - 10.4 fL CERNER BJ Comment:Testing performed by : [facility], [address] [place], [place] [phone] RBC 3.61(L) 3.90 - 5.20 M/cumm CERNER BJ Comment:Testing performed by : [facility], [address] [place] [address] MCV 104.8(H) 81.3 - 96.4 fL CERNER BJ Comment:Testing performed by : [facility], [address] [place] [address] MCH 35.5(H) 27.1 - 33.3 pg CERNER BJ Comment:Testing performed by : [facility], [address] [place] [address] MCHC 33.9 32.3 - 35.7 g/dL CERNER BJ Comment:Testing performed by : [facility], [address] [place] [address] RDW CV 13.4 11.1 - 14.9 % CERNER BJ Comment:Testing performed by : [facility], [address] [place] [address] NRBC abs 0.00 0.00 - 0.01 K/cumm CERNER BJ Comment:Testing performed by : [facility], [address] [place] [address] Blood 04/26/2024 12:5 0 PM DIRECTOR OF CONTENT MARKETING 04/26/2024 12:54 PM DIRECTOR OF CONTENT MARKETING Mckenna Singh Antolin HERRERA LAB BLOOD ORDERABLES Final Result [facility] [place] [address] * (ABNORMAL) Comprehensive metabolic panel (04/26/2024 12:50 PM DIRECTOR OF CONTENT MARKETING) Sodium 140 135 - 145 mmol/L Potassium, pl 5.1(H) 3.3 - 4.9 mmol/L [facility] Chloride 105 97 - 110 mmol/L [facility] CO2 29 22 - 32 mmol/L [facility] Anion gap 6 2 - 15 mmol/L [facility] BUN 30(H) 6 - 25 mg/dL [facility] Creatinine 1.25(H) 0.60 - 1.10 mg/dL [facility] Glucose 82 70 - 199 mg/dL [facility] Comment: Interpretive Data Fasting glucose >/= [...] Calcium 10.3 8.5 - 10.3 mg/dL [facility] Bilirubin, total 0.2 0.1 - 1.2 mg/dL [facility] Protein, pl 8.0 6.5 - 8.5 g/dL [facility] Albumin 4.6 3.5 - 5.0 g/dL [facility] Alk phos 46 40 - 130 Units/L [facility] ALT 12 7 - 45 Units/L [facility] AST 29 10 - 45 Units/L [facility] Blood 04/26/2024 12:5 0 PM DIRECTOR OF CONTENT MARKETING 04/26/2024 12:57 PM DIRECTOR OF CONTENT MARKETING Mckenna Dangelo PANTOGRAPH MACHINE OPERATOR LAB BLOOD ORDERABLES Final Result [facility] [place] [address] * (ABNORMAL) Screening Mammogram Bilateral W Marcio [...] Advance Directives For more information, please contact: [phone] Documents on File Type Date Recorded 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 anation Advance Directives and Nagi salas Will 03/19/2022 8:00 AM * Full Code (Latest Code Status on File) Date Activated Date Inactivated Comments 07/09/2022 1:22 PM 2022 4:28 PM * Full Code Date Activated Date Inactivated Comments 03/19/2022 1:09 PM 03/20/2022 6:23 PM Care Teams Full Time Staff Interpreter Relationship Specialty Start Date End Date Bernard Nunez MD [address] [place] [address] PCP - General 01/06/17 Zaire Alba MD [address] [facility] [address] [place] [address] [place] [address] Surgeon Orthopedic Surgery 03/20/22 Fran Angel MD [address] [place] [address] Referring Physician Ophthalmology 04/07/22
--- OUTSIDE RECORDS SUMMARY | 2024-06-29 16:30 | XMS_ITS | Clinical Summary ---
Author Organization [facility] Address [address] [place] [address] Phone Care Team Providers Care Gallery Host Name Role Phone Bernard Nunez MD Primary Care Provider Trini Shoemaker APRN, REGULATORY AFFAIRS CONSULTANT Unavailable Matt Paul MD Unavailable [phone] Allergies Active Allergy Reactions Criticality Noted Date Comments Penicillins Hives 01/20/2011 Medications Boswellia-Glucosam ine-Vit D (Osteo Bi-Flex One Per Day) Tablet Take by mouth daily. Active Edison-3 Fatty Acids (FISH OIL PO) Take by [...] Type Department Care Team Description 06/29/2024 Telephone [facility] - Internal Medicine [facility] [address] [place] [address] Bernard Nunez MD 06/27/2024 Refill [facility] - Internal Medicine - [place] [address] [place] [address] Bernard Nunez MD Medication Refill 05/21/[facility] [address] [place] [address] Bernard Nunez MD Medication Refill 04/15/2024 Patient Outreach [facility] HealthCare Alligator Trapper Management [address] [place] [phone] Teresa Santana, SMITH Care Management ( RN Graduated) 04/12/2024 10:15 AM RESEARCH ASSOCIATE PROFESSOR Office Visit [facility] Internal [facility] [address] [place] [phone] Bernard Nunez MD Essential (primary) hypertension (Primary [...] drink = 0.6 oz pur e alcohol) [facility] Utilities Answer Date Recorded In the past 12 months has th e [employer], gas, oil, or water [employer] threatened to shut off services in your [...] week 01/11/2024 How often do you attend [facility] or anabaptism services? More than 4 times per year 01/11/2024 Do you belong to any clubs o r organizations such as oriental orthodox groups, unions, fraternal or athletic groups, or [...] Total Score - Questions 1-9 0 03/17 [facility] [place] of Occupat ional Health - Occupational Stress [...] place to sleep or slept in a senior care (including now)? No 06/30/2023 Housing Stability Vital [...] any time in the past 12 m [place], were you homeless or living in a senior care (including now)? No 01/11/2024 Sexually Active Control Partners Comments Not Currently Male Comments No Sex and Gender Information Value Date Recorded Sex Assigned at Not on file Legal Sex Female 12:02 AM CDT Gender Identity Not on file Sexual Orientation Not on file Last Filed Vital Signs Vital Sign Reading Time Taken Comments Blood Pressure 138/68 04/12/2024 10:17 AM RESEARCH ASSOCIATE PROFESSOR Pulse 52 04/12/2024 10:17 AM RESEARCH ASSOCIATE PROFESSOR Temperature 36.6 C (97.9 F) 04/12/2024 10:17 AM RESEARCH ASSOCIATE PROFESSOR Respiratory Rate 12 10/01/2023 10:48 AM CDT Oxygen Saturation 97% 04/12/2024 10:17 AM RESEARCH ASSOCIATE PROFESSOR Inhaled Oxygen Concentration - - Weight 95.3 kg (210 lb) 04/12/2024 10:17 AM RESEARCH ASSOCIATE PROFESSOR Height 154.9 cm (5' 1 ) 04/12/2024 10:17 AM RESEARCH ASSOCIATE PROFESSOR Body Mass Index 39.68 04/12/2024 10:17 AM RESEARCH ASSOCIATE PROFESSOR Plan of Treatment Upcoming Encounters Date Type Department Care Team (Late st Contact Info) Description 07/12/2024 10:15 AM CDT Office Visit [facility] - Internal Medicine - [place] [address] [place] [phone] Bernard Nunez MD [address] [place] [address] Health Maintenance Due Date Last Done Comments [...] 024 9:58 AM CDT) Yes Angel Trujillo, [place] HAND Note: I want to get through this grief. Goal/Objective: Increase coping skills. Anticipated Time Frame for Goal Completion: 6 months Goal Reviewed with: patient Readiness to change: Ready to change [facility] Steps to achieve goal: [...] Procedure Name Priority Date/Time Associated Diagnosis Comments LIPASE 06/29/2024 12:00 AM CDT B-TYPE NATRIURETIC PEPTIDE (BNP) 06/29/2024 12:00 AM CDT TROPONIN I (TRP I) 06/29/2024 12 :00 AM CDT CMP (COMPREHENSIVE METABOLIC PANEL) 06/29/2024 12:00 AM CDT XR - CHEST 06/29/2024 12:00 AM CDT MAMMOGRAM BILATERAL GENERIC 09/28/2023 12:00 AM CDT POORNIMA BONE DENSITOMETRY AXIAL SKELETON Routine 02/24/2022 2:25 PM RESEARCH ASSOCIATE PROFESSOR Age-related osteoporosis without current pathological fracture HM COLONOSCOPY Routine 05/19/2011 from Last 3 Months or Most Recently Relevant to Health Maintenance Results * XR - CHEST (06/29/2024 12:00 AM CDT) 06/29/2024 us Provider Scan IMG DIAGNOSTIC ORDERABLES Final Result Performing Organization Address City/[facility] de Phone Number SCAN * TROPONIN I (TRP I) (06/29/2024 12:00 AM CDT) 06/29/2024 us Provider Scan CHEMISTRY ORDERABLES Final Resul t Performing Organization Address [facility] de Phone Number SCAN * LIPASE (06/29/2024 12:00 AM CDT) 06/29/2024 us Provider Scan CHEMISTRY ORDERABLES Final Resul t Performing Organization Address [facility] de Phone Number SCAN * CMP (COMPREHENSIVE METABOLIC PANEL) (06/29/2024 12:00 AM CDT) 06/29/2024 us Provider Scan CHEMISTRY ORDERABLES Final Resul t Performing Organization Address [facility] de Phone Number SCAN * B-TYPE NATRIURETIC PEPTIDE (BNP) (06/29/2024 12:00 AM CDT) 06/29/2024 us Provider Scan CHEMISTRY ORDERABLES Final Resul t Performing Organization Address [facility] de Phone Number SCAN * MAMMOGRAM BILATERAL MISCELLANEOUS (09/28/2023 12:00 AM CDT) 09/28/2023 us Provider Scan IMG MAMMO ORDERABLES Final Resul t SCAN * [facility] BONE DENSITOMETRY AXIAL SKELETON (02/24/2022 2:25 PM RESEARCH ASSOCIATE PROFESSOR) Anatomical Region Laterality Modality BODY N/A Computed Radiogr aphy 02/25/2022 8:34 AM RESEARCH ASSOCIATE PROFESSOR Impressions 02/25/2022 8:37 AM RESEARCH ASSOCIATE PROFESSOR IMPRESSION: Low bone mass REFERENCE: Bone mineral [...] of Osteoporosis (http://www.nof.org/professionals/clinical-guidelines) Narrative 02/25/2022 8:37 AM RESEARCH ASSOCIATE PROFESSOR EXAM DESCRIPTION: [facility] BONE DENSITOMETRY AXIAL SKELETON REASON FOR STUDY: 71 y/o year old F with given history of screening. Capacitor Inspector/Model: Danger (S/N [id number]) CLINICAL INFORMATION: Current height: 60 inches Maximum [...] by Thania Naylor M.D. TW: Report ID: [id number] Reading Location: [place] [address] Procedure Note Thania Naylor MD - 02/25/2022 EXAM DESCRIPTION: PO[facility]IMA BONE DENSITOMETRY AXIAL SKELETON REASON FOR STUDY: 71 y/o year old F with given history of screening. Capacitor Inspector/Model: Danger (S/N [id number]) CLINICAL INFORMATION: Current height: 60 inches Maximum [...] by Thania Naylor M.D. TW: Report ID: [id number] Reading Location: [place] [address] IMPRESSION: Low bone mass REFERENCE: Bone mineral [...] Recently Relevant to Health Maintenance Insurance MEDICARE [employer] GENERIC Advance Directives Documents on File Type Date Recorded Patient Icu Clerk Expl anation Advance Care Planning Discussion 10/31/2020 9:53 AM Advance Care Plancourtn maritza POLST/POST/[place] DNR 10/31/2020 9:52 AM DNR Power of Billing Analyst for Health Care 10/31/2020 9:51 AM POA for Healthcare Care Teams Gallery Host Relationship Specialty Start Date End Date Bernard Nunez MD [address] [facility] [address] PCP - General Internal Medicine 06/27/15 Trini Shoemaker APRN, REGULATORY AFFAIRS CONSULTANT [address] [place] [address] Nurse Practitioner Advanced Practice Nurse 12/10/22 Matt Paul MD [address] [place] [address] Consulting Physician Gastroenterology 01/23/22
--- OUTSIDE RECORDS SUMMARY | 2024-06-29 16:30 | XMS_ITS | Continuity of Care Document ---
Author Organization [employer] [facility] [place] Address [address] [place] [address] Phone Care Team Providers Care Central Office Trouble Shooter Name Role Phone Km Teresa MD, MD [...] Copied on Encounter Office/outpat ient Visit, Est [facility] Eye [facility], [address], [place], [place], [id number], [place] tel:[phone] SEC Edmund GARCIA Professional VISUAL DISTORT[employer] NECVITREOUS PROLAPSE [address], [address], [place], [address], [place]. tel:[phone] Referring Provider: Km Teresa MD P, [address], [place], [address]. tel:[phone] Family History Family Member Type Diagnosis Age At Onset Problem (finding) Mother Problem (finding) glaucoma Payers Payer name Insurance type Covered republican ID Kenn villalpando(s) [facility] Commercial CI [id number] Social History Type Description Quantity Date Captured [...]
--- OUTSIDE RECORDS SUMMARY | 2024-06-29 16:30 | XMS_ITS | Clinical Summary ---
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 Missed or vomited doses may not be made up. Avoid grapefruit juice/products, pomelos, [place] oranges, Mirta's Wort. Active calcium carbonate-vitam in [...] 1 3 025 Discontin ued(Alter carter therapy) [facility] Abemaciclib (/TB CRC-060) 50 mg tablet Take 3 tablets (150 mg total) by mouth 2 (two) times a day Take at about the same times each day with or without food. Missed or vomited doses may not be made up. Avoid grapefruit juice/products, pomelos, [place] oranges, [place]'s Wort. 025 Discontin ued(Alter carter therapy) letrozole [...] (03/04/2022): Added automatically from request for surgery [id number] Basal cell carcinoma (BCC) of left lower eyelid 01/06/2022 Lesion of left lower eyelid 11/07/2021 Overview (11/07/2021): Added automatically from request for surgery [id number] Resolved Problems Problem Noted Date Diagnosed Date Resolved Date Primary osteoarthritis of left knee 06/23/2022 07/17/2022 Overview (06/23/2022): Added automatically from request for surgery [id number] Encounters Date Type Department Care Team Description 06/21/2024 3:30 PM CDT Office Visit [facility] Oncology [address] [facility] Floor 8 [place] [address] Lucille Singh MD Malignant neoplasm of overlapping sites of left breast in female, estrogen receptor positive (HCC) (Primary Dx) 06/21/2024 2:30 PM CDT Lab [facility] - Lab Collection [address] [facility] Floor 6 [place] [address] Malignant neoplasm of overlapping sites of left breast in female, estrogen receptor positive (HCC) 06/06/2024 4:15 PM CDT Office Visit [facility] Cardiology [address] [facility] Medicine 8th [place] [address] [place] [address] Jose Escoto MD Essential hypertension (Primary Dx); Palpitations 06/06/2024 Telephone [facility] Cardiology [address] [facility] 8th [place] [address] [place] [address] Jose Escoto MD 05/24/2024 3:15 PM CDT Research Med Pick-Up/[employer] [facility] - Infusion [address] Floor 6 [place] [address] Malignant neoplasm of overlapping sites of left breast in female, estrogen receptor positive (HCC) (Primary Dx) 05/24/2024 2:00 PM CDT Office Visit [facility] Oncology [facility] [facility] Floor 8 [place] [address] Lucille Singh MD Malignant neoplasm of overlapping sites of left breast in female, estrogen receptor positive (HCC) (Primary Dx) 05/24/2024 1:00 PM CDT Clinical Support [facility] - Lab Collection [address] [facility] Floor 5 [place] [address] Malignant neoplasm of overlapping sites of left breast in female, estrogen receptor positive (HCC) 05/24/2024 10:33 AM CDT - 05/24/2024 11:59 PM CDT Hospital Encounter [facility] - PET [address] [place] [address] Discharge Disposition: Discharge to home or self care 05/24/2024 10:30 AM CDT - 05/24/2024 11:59 PM CDT Hospital Encounter [facility] - PET [address] 8 [place] [address] Malignant neoplasm of overlapping sites of left breast in female, estrogen receptor positive (HCC) Discharge Disposition: Discharge to home or self care 05/24/2024 Orders Only [facility] Oncology [address] [facility] Floor 8 [place] [address] Shani Parekh RN 05/24/2024 Orders Only [facility] Oncology [address] [place] [phone] Shani Parekh RN Malignant neoplasm of overlapping sites of left breast in female, estrogen receptor positive (HCC) (Primary Dx) 04/26/2024 3:00 PM MANAGER INTERNAL Infusion [facility] - Infusion [address] [place] [address] Floor 5 [place] [address] Malignant neoplasm metastatic to bone (HCC) (Primary Dx); Malignant neoplasm of overlapping sites of left breast in female, estrogen receptor positive (HCC) 04/26/2024 2:00 PM MANAGER INTERNAL Office Visit [facility] Oncology [address] [place] [phone] Lucille Singh MD Malignant neoplasm of overlapping sites of left breast in female, estrogen receptor positive (HCC) (Primary Dx); Malignant neoplasm metastatic to bone (HCC) 04/26/2024 1:00 PM MANAGER INTERNAL Clinical Support [facility] - Lab Collection [address] [place] [address] 5 [place] [address] Malignant neoplasm of overlapping sites of left breast in female, estrogen receptor positive (HCC) 04/26/2024 Orders Only [facility] Oncology [address] [place] [phone] Shani Parekh RN from Last 3 Months [...] file Legal Sex Female 2:02 PM MANAGER INTERNAL Gender Identity Not on file Sexual Orientation [...] history exists Medical Devices Implanted Type Area Document Reviewer Device Identifier Shelf Expiration Date Model / Serial / Lot Aundrea Craniomaxillofa cial Impl Soft Tissue [id number] Moist Tough Flex Sheet Enduragen 56166 - S0 - [id number] Implanted:Qty: 1 on 01/06/2022 by Bhanu Buchanan MD at [facility] Other - see comments Left: Eyelid [place] [employer]ill[employer] 04/15/2026 [id number] / 0 / [employer] Cement Bone Simplex Gentamicin High Viscosity 40gm 6195-1-001 - [id number] Implanted:Qty: 1 on 03/19/2022 by Zaire Alba MD at [facility] Right: Knee [place] [employer] 06/14/2023 6195-1-001 / / [id number] [employer] Cement Bone Simplex Gentamicin High Viscosity 40gm 6195-1-001 - [id number] Implanted:Qty: 1 on 03/19/2022 by Zaire Alba MD at [facility] Right: Knee [employer] 06/14/2023 6195-1-001 / / [id number] [employer] Attune 32mm Cemented Medialize Knee Dome Patellar Aox Sterile [id number] - [id number] Implanted:Qty: 1 on 03/19/2022 by Zarie Alba MD at [facility] Right: Knee [employer] 03/15/2026 [id number] / / [id number] [employer] Attune Cemented Posterior Stabilize Knee Right 4 Narrow Component [id number] - [id number] Implanted:Qty: 1 on 03/19/2022 by Zaire Alba MD at [facility] Right: Knee [employer] 10/14/2031 [id number] / / [id number] [employer] Attune S+ Cement Fix Bearing Knee 3 Baseplate Tibial 279078510 - [id number] Implanted:Qty: 1 on 03/19/2022 by Zaire Alba MD at [facility] Right: Knee [employer] 01/14/2032 [id number] / / [id number] [employer] Attune 8mm Posterior Stabilize Fix Bearing Knee 4 Insert Tibial [id number] - [id number] Implanted:Qty: 1 on 03/19/2022 by Zaire Alba MD at [facility] Right: Knee [employer] 11/12/2026 [id number] / / [id number] [employer] Attune 32mm Cemented Medialize Knee Dome Patellar Aox Sterile [id number] - [id number] Implanted:Qty: 1 on 07/09/2022 by Zaire Alba MD at [facility] Left: Knee [employer] 04/15/2027 [id number] / / [id number] [employer] Attune Cemented Posterior Stabilize Knee Left 4 Narrow Component [id number] - [id number] Implanted:Qty: 1 on 07/09/2022 by Zaire Alba MD at [facility] Left: Knee [employer] 04/15/2032 [id number] / / [id number] [employer] Attune S+ Cement Fix Bearing Knee 3 Baseplate Tibial 127224698 - [id number] Implanted:Qty: 1 on 07/09/2022 by Zaire Alba MD at [facility] Left: Knee [employer] 04/15/2032 [id number] / / [id number] [employer] Attune 6mm Posterior Stabilize Fix Bearing Knee 4 Insert Tibial [id number] - [id number] Implanted:Qty: 1 on 07/09/2022 by Zaire Alba MD at [facility] Left: Knee [employer] 03/15/2027 [id number] / / [id number] [employer] Cement Bone Simplex Gentamicin High Viscosity 40 6195-1-001 - [id number] Implanted:Qty: 1 on 07/09/2022 by Zaire Alba MD at [facility] Left: Knee [employer] 11/14/2023 6195-1-001 / / [id number] [employer] Cement Bone Simplex Gentamicin High Viscosity 40 6195-1-001 - [id number] Implanted:Qty: 1 on 07/09/2022 by Zaire Alba MD at [facility] Left: Knee [employer] 11/14/2023 6195-1-001 / / [id number] [employer]ipheral [employer] Ultraclip Bard 17ga 10cm 2 Trigger Permanent Ultrasound [id number] - [id number] Implanted:Qty: 1 on 10/08/[address] [facility] Left: Breast [employer] [id number] / / [employer] Marker Image Hydromark Plus T5 Titanium 15ga Radiological Implant Sterile 4009-04-30-T5 - [id number] Implanted:Qty: 1 on 10/08/[address] [facility] Left: Axilla [employer] [id number] 4009-04-30 -T5 / / [id number] [employer] Marker Tissue Rigid Needle Open Coil Radiopaque Clip Hydromark 18ga Titanium Hydrogel 8185-79-64-T3 - [id number] Implanted:Qty: 1 on 10/08/[address] [facility] Left: Axilla [employer] [id number] 4009-05-03 -T3 / / [id number] Procedures Procedure Name Priority Date/Time Associated Diagnosis [...] positive (HCC) EGFR STAT 04/26/2024 12:50 PM MANAGER INTERNAL Malignant neoplasm of overlapping sites of left breast in female, estrogen receptor positive (HCC) DIFFERENTIAL AUTO STAT 04/26/2024 12: 50 PM MANAGER INTERNAL Malignant neoplasm of overlapping sites of left breast in female, estrogen receptor positive (HCC) CBC WITH AUTO DIFFERENTIAL STAT 04/26/2024 12:50 PM MANAGER INTERNAL Malignant neoplasm of overlapping sites of left breast in female, estrogen receptor positive (HCC) COMPREHENSIVE METABOLIC PANEL STAT 04/26/2024 12:50 PM MANAGER INTERNAL Malignant neoplasm of overlapping sites of left [...] Singh MD LAB BLOOD ORDERABLES Final Result [facility] [place] [address] * (ABNORMAL) Differential, auto (06/21/2024 2:53 PM CDT) Neutrophil abs 2.23 1.50 - 6.50 K/cumm Comment:Testing performed by : [facility], [address] [place] [phone] Lymphocyte abs 0.52(L) 0.80 - 3.30 K/cumm CERNER BJ Comment:Testing performed by : [facility], [address] [place] [phone] Monocyte abs 0.32 0.20 - 0.80 K/cumm CERJEANMARIE BJ Comment:Testing performed by : [facility], [address] [place], [place] [phone] Eosinophil abs 0.09 0.00 - 0.50 K/cumm CERNER BJ Comment:Testing performed by : [facility], [address] [place] [phone] Basophil abs 0.05 0.00 - 0.10 K/cumm CERJEANMARIE BJ Comment:Testing performed by : [facility], [address] [place] [phone] Neutrophil pct 69.4 % CERJEANMARIE BJ Comment: Interpretive Data Percent cell count reference ranges are not reported, since discordance with absolute values may lead to misinterpretation of CBC data. Current Interpretive Data was last revised on 2017. Testing performed by: [facility], [address] [place] [phone] Lymphocyte pct 16.2 % CERJEANMARIE BJ Comment: Interpretive Data Percent cell count reference ranges are not reported, since discordance with absolute values may lead to misinterpretation of CBC data. Current Interpretive Data was last revised on 2017. Testing performed by: [facility], [address] [place] [phone] Monocyte pct 10.0 % CERJEANMARIE BJ Comment: Interpretive Data Percent cell count reference ranges are not reported, since discordance with absolute values may lead to misinterpretation of CBC data. Current Interpretive Data was last revised on 2017. Testing performed by: [facility], [address] [place] [phone] Eosinophil pct 2.9 % CERJEANMARIE BJ Comment: Interpretive Data Percent cell count reference ranges are not reported, since discordance with absolute values may lead to misinterpretation of CBC data. Current Interpretive Data was last revised on 2017. Testing performed by: [facility], [address] [place] [phone] Basophil pct 1.5 % CERJEANMARIE [facility] Comment: Interpretive Data Percent cell count reference ranges are not reported, since discordance with absolute values may lead to misinterpretation of CBC data. Current Interpretive Data was last revised on 2017. Testing performed by: [facility], [address] [place] [phone] Blood 06/21/2024 2:53 PM CDT 06/21/2024 3:16 PM CDT us Lucille Singh MD LAB BLOOD ORDERABLES Final Result [facility] Department [place] [address] * (ABNORMAL) CBC with auto differential (06/21/2024 2:53 PM CDT) WBC 3.21(L) 3.80 - 9.90 K/cumm Comment:Testing performed by : [facility], [address] [place], [place] [phone] Hgb 11.5(L) 11.9 - 15.5 g/dL CERNER BJ Comment:Testing performed by : [facility], [address] [place], [place] [phone] Hct 33.2(L) 35.6 - 45.5 % CERNER BJ Comment:Testing performed by : [facility], [address] [place], [place] [phone] Plt 186 150 - 400 K/cumm CERNER BJ Comment:Testing performed by : [facility], [address] [place], [place] [phone] MPV 7.9 6.8 - 10.4 fL CERNER BJ Comment:Testing performed by : [facility], [address] [place], [place] [phone] RBC 3.17(L) 3.90 - 5.20 M/cumm CERNER BJ Comment:Testing performed by : [facility], [address] [place], [place] [phone] MCV 104.8(H) 81.3 - 96.4 fL CERNER BJ Comment:Testing performed by : [facility], [address] [place], [place] [phone] MCH 36.4(H) 27.1 - 33.3 pg CERNER BJ Comment:Testing performed by : [facility], [address] [place], [place] [phone] MCHC 34.8 32.3 - 35.7 g/dL CERNER BJ Comment:Testing performed by : [facility], [address] [place], [place] [phone] RDW CV 14.7 11.1 - 14.9 % CERNER BJ Comment:Testing performed by : [facility], [address] [place] [address] NRBC abs 0.00 0.00 - 0.01 K/cumm CERNER BJ Comment:Testing performed by : [facility], [address] [place] [address] Blood 06/21/2024 2:53 PM CDT 06/21/2024 3:16 PM CDT Lucille Singh MD LAB BLOOD ORDERABLES Final Result [facility] Department [place] [address] * (ABNORMAL) Comprehensive metabolic panel (06/21/2024 2:53 PM CDT) Sodium 142 135 - 145 mmol/L Potassium, pl 4.6 3.3 - 4.9 mmol/L [facility] Chloride 107 97 - 110 mmol/L [facility] CO2 28 22 - 32 mmol/L [facility] Anion gap 7 2 - 15 mmol/L [facility] BUN 34(H) 6 - 25 mg/dL [facility] Creatinine 0.96 0.60 - 1.10 mg/dL [facility] Glucose 84 70 - 199 mg/dL [facility] Comment: Interpretive Data Fasting glucose >/= 126 [...] 2022. Calcium 10.0 8.5 - 10.3 mg/dL [facility] Bilirubin, total 0.2 0.1 - 1.2 mg/dL [facility] Protein, pl 7.4 6.5 - 8.5 g/dL [facility] Albumin 4.3 3.5 - 5.0 g/dL [facility] Alk phos 44 40 - 130 Units/L [facility] ALT 7 7 - 45 Units/L [facility] AST 21 10 - 45 Units/L [facility] Blood 06/21/2024 2:53 PM CDT 06/21/2024 3:15 PM CDT us Lucille Singh MD LAB BLOOD ORDERABLES Final Result NIK [facility] Department [place] [address] * PET/CT FDG Skull to Thigh (05/24/2024 [...] FDG-PET/CT IMAGING DATE OF STUDY: 05/24/2024 SCANNER: [employer] (SQ1). This is a high-resolution scanner, which [...] obtained. The study was interpreted on the ZANK[employer]mobi workstation. The mean liver SUV (reported for quality eng purposes) is 3.2. The total scanned area [...] FDG-PET/CT IMAGING DATE OF STUDY: 05/24/2024 SCANNER: [facility] [employer] (SQ1). This is a high-resolution scanner, which [...] obtained. The study was interpreted on the [employer] workstation. The mean liver SUV (reported for quality eng purposes) is 3.2. The total scanned area [...] MD LAB BLOOD ORDERABLES Final Result NIK [facility] Department [place] [address] * (ABNORMAL) Differential, auto (05/24/2024 12:45 PM CDT) Neutrophil abs 2.8 1.5 - 6.5 K/cumm Comment:Testing performed by : [facility], [address] [place] [phone] Lymphocyte abs 0.6(L) 0.8 - 3.3 K/cumm CERNER [facility] Comment:Testing performed by : [facility], [address] [place] [phone] Monocyte abs 0.3 0.2 - 0.8 K/cumm CERNER BJ Comment:Testing performed by : [facility], [address] [place] [phone] Eosinophil abs 0.1 0.0 - 0.5 K/cumm CERNER [facility] Comment:Testing performed by : [facility], [address] [place] [phone] Basophil abs 0.1 0.0 - 0.1 K/cumm CERNER [facility] Comment:Testing performed by : [facility], [address] [place] [phone] Neutrophil pct 72.0 % CERNER BJ Comment: Interpretive Data Percent cell count reference ranges are not reported, since discordance with absolute values may lead to misinterpretation of CBC data. Current Interpretive Data was last revised on 2017. Testing performed by: [facility], [address] [place] [phone] Lymphocyte pct 14.7 % CERNER BJ Comment: Interpretive Data Percent cell count reference ranges are not reported, since discordance with absolute values may lead to misinterpretation of CBC data. Current Interpretive Data was last revised on 2017. Testing performed by: [facility], [address] [place] [phone] Monocyte pct 8.6 % CERNER BJ Comment: Interpretive Data Percent cell count reference ranges are not reported, since discordance with absolute values may lead to misinterpretation of CBC data. Current Interpretive Data was last revised on 2017. Testing performed by: [facility], [address] [place] [phone] Eosinophil pct 2.5 % NIK GONZALEZ Comment: Interpretive Data Percent cell count reference ranges are not reported, since discordance with absolute values may lead to misinterpretation of CBC data. Current Interpretive Data was last revised on 2017. Testing performed by: [facility], [address] [place] [phone] Basophil pct 2.2 % NIK GONZALEZ Comment: Interpretive Data Percent cell count reference ranges are not reported, since discordance with absolute values may lead to misinterpretation of CBC data. Current Interpretive Data was last revised on 2017. Testing performed by: [facility], [address] [place] [phone] Blood 05/24/2024 12:4 5 PM CDT 05/24/2024 12:48 PM CDT us Lucille Singh MD LAB BLOOD ORDERABLES Final Result NIK GONZALEZ [facility] [place] [address] * (ABNORMAL) CBC with auto differential (05/24/2024 12:45 PM CDT) WBC 3.9 3.8 - 9.9 K/cumm Comment:Testing performed by : [facility], [address] [place] [phone] Hgb 11.6(L) 11.9 - 15.5 g/dL NIK GONZALEZ Comment:Testing performed by : [facility], [address] [place] [phone] Hct 33.6(L) 35.6 - 45.5 % NIK GONZALEZ Comment:Testing performed by : [facility], [address] [place] [address] Plt 192 150 - 400 K/cumm CERJEANMARIE [facility] Comment:Testing performed by : [facility], [address] [place] [address] MPV 7.3 6.8 - 10.4 fL CERJEANMARIE [facility] Comment:Testing performed by : [facility], [address] [place] [address] RBC 3.27(L) 3.90 - 5.20 M/cumm CERJEANMARIE [facility] Comment:Testing performed by : [facility], [address] [place] [address] MCV 102.8(H) 81.3 - 96.4 fL CERJEANMARIE [facility] Comment:Testing performed by : [facility], [address] [place] [address] MCH 35.4(H) 27.1 - 33.3 pg [facility] Comment:Testing performed by : [facility], [address] [place] [address] MCHC 34.4 32.3 - 35.7 g/dL CERJEANMARIE [facility] Comment:Testing performed by : [facility], [address] [place] [address] RDW CV 13.9 11.1 - 14.9 % [facility] Comment:Testing performed by : [facility], [address] [place] [address] NRBC abs 0.00 0.00 - 0.01 K/cumm [facility] Comment:Testing performed by : [facility], [address] [place] [address] Blood 05/24/2024 12:4 5 PM CDT 05/24/2024 12:48 PM CDT us Lucille Singh MD LAB BLOOD ORDERABLES Final Result [facility] [place] [address] * (ABNORMAL) Cancer antigen 15-3 (05/24/2024 12:45 PM CDT) Pathologist [facility] CA 15-3 ag 35.3(H) <=25.0 units/mL Comment: Interpretive Data The [employer] CA 15-3 assay procedure was used. Results from different manufacturers or methods may not be comparable. Serial testing should be performed using the same method. Blood 05/24/2024 12:4 5 PM CDT 05/24/2024 2:51 PM CDT Lucille Singh MD LAB BLOOD ORDERABLES Final Result Performing Organization Address [facility] Co de Phone Number [facility] [place] [employer] [address] * (ABNORMAL) CEA (05/24/2024 12:45 PM CDT) [facility] CEA 5.3(H) <=5.0 ng/mL Comment: Interpretive Data: [...] Singh MD LAB BLOOD ORDERABLES Final Result [facility] [place] [address] * Comprehensive metabolic panel (05/24/2024 12:45 PM CDT) Pathologist [facility] Sodium 143 135 - 145 mmol/L Potassium, pl 4.6 3.3 - 4.9 mmol/L [facility] Chloride 107 97 - 110 mmol/L [facility] CO2 28 22 - 32 mmol/L [facility] Anion gap 8 2 - 15 mmol/L [facility] BUN 24 6 - 25 mg/dL [facility] Creatinine 0.94 0.60 - 1.10 mg/dL [facility] Glucose 93 70 - 199 mg/dL [facility] Comment: Interpretive Data Fasting glucose >/= 126 [...] 2022. Calcium 10.3 8.5 - 10.3 mg/dL [facility] Bilirubin, total 0.3 0.1 - 1.2 mg/dL [facility] Protein, pl 7.6 6.5 - 8.5 g/dL [facility] Albumin 4.3 3.5 - 5.0 g/dL [facility] Alk phos 44 40 - 130 Units/L [facility] ALT 10 7 - 45 Units/L [facility] AST 23 10 - 45 Units/L [facility] Blood 05/24/2024 12:4 5 PM CDT 05/24/2024 12:50 PM CDT Lucille Singh MD LAB BLOOD ORDERABLES Final Result [facility] [place] [address] * (ABNORMAL) eGFR (04/26/2024 12:50 PM MANAGER INTERNAL) eGFR 45(L) >=60 mL/min/1. 73 m2 Comment: [...] reviewed 2021. Blood 04/26/2024 12:5 0 PM MANAGER INTERNAL 04/26/2024 12:57 PM MANAGER INTERNAL Mckenna Dangelo FAMILY AND MARRIAGE COUNSELLOR LAB BLOOD ORDERABLES Final Result [facility] [place] [address] * (ABNORMAL) Differential, auto (04/26/2024 12:50 PM MANAGER INTERNAL) Neutrophil abs 2.7 1.5 - 6.5 K/cumm Comment:Testing performed by : [facility], [address] [place], [place] [phone] Lymphocyte abs 0.4(L) 0.8 - 3.3 K/cumm CERJEANMARIE [facility] Comment:Testing performed by : [facility], [address] [place], [place] [phone] Monocyte abs 0.3 0.2 - 0.8 K/cumm CERJEANMARIE BJ Comment:Testing performed by : [facility], [address] [place] [phone] Eosinophil abs 0.1 0.0 - 0.5 K/cumm CERJEANMARIE BJ Comment:Testing performed by : [facility], [address] [place] [phone] Basophil abs 0.1 0.0 - 0.1 K/cumm CERJEANMARIE EDMONDS Comment:Testing performed by : [facility], [address] [place] [phone] Neutrophil pct 74.6 % NIK EDMONDS Comment: Interpretive Data Percent cell count reference ranges are not reported, since discordance with absolute values may lead to misinterpretation of CBC data. Current Interpretive Data was last revised on 2017. Testing performed by: [facility], [address] [place] [phone] Lymphocyte pct 12.5 % NIK EDMONDS Comment: Interpretive Data Percent cell count reference ranges are not reported, since discordance with absolute values may lead to misinterpretation of CBC data. Current Interpretive Data was last revised on 2017. Testing performed by: [facility], [address] [place] [phone] Monocyte pct 8.9 % NIK EDMONDS Comment: Interpretive Data Percent cell count reference ranges are not reported, since discordance with absolute values may lead to misinterpretation of CBC data. Current Interpretive Data was last revised on 2017. Testing performed by: [facility], [address] [place] [phone] Eosinophil pct 2.6 % NIK EDMONDS Comment: Interpretive Data Percent cell count reference ranges are not reported, since discordance with absolute values may lead to misinterpretation of CBC data. Current Interpretive Data was last revised on 2017. Testing performed by: [facility], [address] [place] [phone] Basophil pct 1.4 % NIK EDMONDS Comment: Interpretive Data Percent cell count reference ranges are not reported, since discordance with absolute values may lead to misinterpretation of CBC data. Current Interpretive Data was last revised on 2017. Testing performed by: [facility], [address] [place] [phone] Blood 04/26/2024 12:5 0 PM MANAGER INTERNAL 04/26/2024 12:54 PM MANAGER INTERNAL Mckenna Dangelo FAMILY AND MARRIAGE COUNSELLOR LAB BLOOD ORDERABLES Final Result [facility] [place] [address] * (ABNORMAL) CBC with auto differential (04/26/2024 12:50 PM MANAGER INTERNAL) WBC 3.6(L) 3.8 - 9.9 K/cumm Comment:Testing performed by : [facility], [address] [place] [address] Hgb 12.8 11.9 - 15.5 g/dL CERJEANMARIE BJ Comment:Testing performed by : [facility], [address] [place] [address] Hct 37.8 35.6 - 45.5 % CERJEANMARIE BJ Comment:Testing performed by : [facility], [address] [place] [address] Plt 203 150 - 400 K/cumm CERJEANMARIE BJ Comment:Testing performed by : [facility], [address] [place] [address] MPV 7.6 6.8 - 10.4 fL CERNER BJ Comment:Testing performed by : [facility], [address] [place] [address] RBC 3.61(L) 3.90 - 5.20 M/cumm CERJEANMARIE BJ Comment:Testing performed by : [facility], [address] [place] [address] MCV 104.8(H) 81.3 - 96.4 fL CERJEANMARIE BJ Comment:Testing performed by : [facility], [address] [place] [address] MCH 35.5(H) 27.1 - 33.3 pg CERNER BJ Comment:Testing performed by : [facility], [address] [place] [address] MCHC 33.9 32.3 - 35.7 g/dL CERNER BJ Comment:Testing performed by : [facility], [address] [place] [address] RDW CV 13.4 11.1 - 14.9 % CERJEANMARIE BJ Comment:Testing performed by : [facility], [address] [place] [phone] NRBC abs 0.00 0.00 - 0.01 K/cumm [facility] Comment:Testing performed by : [facility], [address] [place] [phone] Blood 04/26/2024 12:5 0 PM MANAGER INTERNAL 04/26/2024 12:54 PM MANAGER INTERNAL Mckenna Stovally Antolin FAMILY AND MARRIAGE COUNSELLOR LAB BLOOD ORDERABLES Final Result [facility] [place] [address] * (ABNORMAL) Comprehensive metabolic panel (04/26/2024 12:50 PM MANAGER INTERNAL) Sodium 140 135 - 145 mmol/L Potassium, pl 5.1(H) 3.3 - 4.9 mmol/L [facility] Chloride 105 97 - 110 mmol/L [facility] CO2 29 22 - 32 mmol/L [facility] Anion gap 6 2 - 15 mmol/L [facility] BUN 30(H) 6 - 25 mg/dL [facility] Creatinine 1.25(H) 0.60 - 1.10 mg/dL [facility] Glucose 82 70 - 199 mg/dL [facility] Comment: Interpretive Data Fasting glucose >/= 126 [...] 2022. Calcium 10.3 8.5 - 10.3 mg/dL [facility] Bilirubin, total 0.2 0.1 - 1.2 mg/dL [facility] Protein, pl 8.0 6.5 - 8.5 g/dL CERNER BJ Albumin 4.6 3.5 - 5.0 g/dL CERNER [facility] Alk phos 46 40 - 130 Units/L CERNER [facility] ALT 12 7 - 45 Units/L [facility] AST 29 10 - 45 Units/L CERNER [facility] Blood 04/26/2024 12:5 0 PM MANAGER INTERNAL 04/26/2024 12:57 PM MANAGER INTERNAL Mckenna Francisco Antolin FAMILY AND MARRIAGE COUNSELLOR LAB BLOOD ORDERABLES Final Result [facility] [place] [address] * (ABNORMAL) Screening Mammogram Bilateral W Marcio [...] Advance Directives For more information, please contact: [phone] Documents on File Type Date Recorded Patient Email Designer Expl anation Advance Directives and Livin g Will 03/19/2022 8:00 AM * Full Code (Latest Code Status on File) Date Activated Date Inactivated Comments 07/09/2022 1:22 PM 2022 4:28 PM * Full Code Date Activated Date Inactivated Comments 03/19/2022 1:09 PM 03/20/2022 6:23 PM Care 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
== END 2024-06-29 16:28 | disposition home or self-care (01) ==
PROVIDERS: Physician Assistant; Emergency Provider Emergency Medicine; PCP Internal Medicine
DX: R07.89 Other chest pain (principal); I10 Essential (primary) hypertension; K21.9 Gastro-esophageal reflux disease without esophagitis; K44.9 Diaphragmatic hernia without obstruction or gangrene; R06.00 Dyspnea, unspecified; E07.9 Disorder of thyroid, unspecified; Z79.899 Other long term (current) drug therapy
CPT/HCPCS: 36415; 71045; 80053; 83690; 83880; 84484; 85025; 85610; 85730; 93005; 99284; A9270